=== PATIENT | female | born 1970 | race Caucasian/White ===

== ENCOUNTER 2018-03-17 08:35 | Outpatient (CLI) | payer OTHER | END 2018-03-17 08:36 | disposition home or self-care (01) | LOC: BICMAMMO 08:35 | PROVIDERS: ATTEND Family Medicine | DX: Z12.31 Encounter for screening mammogram for malignant neoplasm of breast (principal); N64.89 Other specified disorders of breast | CPT/HCPCS: 77067 ==

== ENCOUNTER 2018-03-24 08:18 | Outpatient (CLI) | payer OTHER | END 2018-03-24 08:19 | disposition home or self-care (01) | LOC: BICMAMMO 08:18 | PROVIDERS: ATTEND Family Medicine | DX: R92.2 Inconclusive mammogram (principal); N63.10 Unspecified lump in the right breast, unspecified quadrant | CPT/HCPCS: G0279 ==

== ENCOUNTER 2018-04-01 08:09 | Outpatient (CLI) | payer OTHER ==
--- NOTE | 2018-04-01 12:02 | MRI ---
PRE AND POST CONTRAST ENHANCED MRI CERVICAL SPINE: 04/01/2018 COMPARISON: 01/31/2017 TECHNIQUE: Multiplanar, multisequence pre and post contrast enhanced MR images of the cervical spine are obtaine d. FINDINGS: The spinal cord is unremarkable. No evidence of demyelinating lesions seen. Disk desiccation and broad-based disk bulge is seen at C4-C5, C5-C6, and C6-C7. This is compatible w ith mild disk desiccation and broad-based central disk bulges. No significant evidence of central or neural foraminal narrowing is seen. Some disk desiccation is also seen at the T1-T2 level with broa d-based T1-T2 left lateral recess and paracentral disk protrusion. This is unchanged since the previ ous exam. IMPRESSION: 1. Multiple mid level cervical disk desiccation. 2. Left T1-T2 paracentral disk protrusion extending to the lateral recess. POS: [facility]
--- NOTE | 2018-04-01 12:02 | MRI ---
PRE AND POST CONTRAST ENHANCED MR IMAGES OF THE BRAIN: History: Multiple sclerosis. Technique: Multiplanar, multisequence pre and post contrast enhanced MRI images were obtained of the brain. Comparison: 04-04-17 FINDINGS: Pre and post contrast enhanced MRI images of the brain demonstrate numerous paraventricular white mat ter lesions compatible with deep white matter ischemic changes seen. No evidence of masses or lesions seen involving the corpus callosum. No newly developed masses seen. MRI appearance of the brain is s table. No evidence of enhancing intracranial lesions seen. Bilateral maxillary sinus mucous retention cysts seen. IMPRESSION: Stable MRI appearance of the brain. No evidence of acute intracranial masses or lesions seen. Deep wh ite matter ischemic changes seen. POS: [facility]
== END 2018-04-01 08:10 | disposition home or self-care (01) ==
LOC: TBSIIMAG 08:09
PROVIDERS: ATTEND Psychiatry & Neurology Neurology
DX: G35 Multiple sclerosis (principal); M50.220 Other cervical disc displacement, mid-cervical region, unspecified level; M51.24 Other intervertebral disc displacement, thoracic region
CPT/HCPCS: 70553; 72156

== ENCOUNTER 2018-07-18 10:02 | Inpatient (IN) | payer OTHER ==
[2018-07-18 11:20] LABS: #Basophils 0.1 thou/uL (0.0-0.2); #Eosinphils 0.3 thou/uL (0.0-0.7); #Lymphocytes 2.6 thou/uL (1.20-3.40); #Monocytes 0.5 thou/uL (0.11-0.59); #Neutrophils 3.6 thou/uL (1.40-6.50); %Basophils 0.7 % (0.0-1.0); %Lymphocytes 37.5 % (21.0-51.0); %Monocytes 7.4 % (0.0-10.0); %Neutrophils 50.4 % (42.0-75.0); Hemoglobin 15.2 g/dL (12.0-16.0); Mean Corpuscular HGB CONC 34.7 g/dL (32.0-36.0); Mean Corpuscular Hemoglobin 31.9 pg (27.0-31.0); Mean Corpuscular Volume 91.8 fL (78.0-98.0); Mean Platelet Volume 7.1 fL (7.4-10.4); Platelet Count 188 thou/uL (130-400); RBC Distribution Width 13.5 % (11.5-14.5); Red Blood Cell (RBC) Count 4.77 mill/uL (4.20-5.40)
[2018-07-18 11:42] LABS: ALT (SGPT) 54 U/L (8-55); AST (SGOT) 44 U/L (5-34); Albumin 4.3 g/dL (3.5-5.0); Alkaline Phosphatase 107 U/L (40-150); Anion Gap 11 mmol/L (10-20); BUN (Urea Nitrogen) 18 mg/dL (7.0-18.7); Bilirubin, Total 0.7 mg/dL (0.2-1.2); Calc. Creatinine Clearance 0 mL/min (70-130); Calcium 9.7 mg/dL (7.8-10.44); Carbon Dioxide 21 mmol/L (22-29); Chloride 108 mmol/L (98-107); Estimated GFR-MDRD 61; Glucose 108 mg/dL (70-105); Protein, Total 7.3 g/dL (6.0-8.3); Sodium 136 mmol/L (136-145)
[2018-07-18 11:43] LABS: CKMB 0.5 ng/mL (0-6.6)
--- NOTE | 2018-07-18 11:43 | RAD ---
PORTABLE AP CHEST: Date: 07/08/18 HISTORY: Chest pain. Left facial pain and headache. COMPARISON: None available. FINDINGS: Cardiac silhouette and pulmonary vasculature are within normal limits. Lungs are clear. Osseous struc tures are intact. IMPRESSION: No acute cardiopulmonary process. POS: [facility]
[2018-07-18 11:57] LABS: Troponin I Less than 0.010 ng/mL (< 0.028)
[2018-07-18] MEDS ORDERED: METHYLPREDNISOLONE SOD SUCC IVP SCH (12:15)
[2018-07-18] MEDS ORDERED: SODIUM CHLORIDE 0.9% IVP SCH (12:15)
[2018-07-18] MEDS ORDERED: Gabapentin 300 MG CAP PO SCH ×2 (12:45→15:45)
--- NOTE | 2018-07-18 13:31 | HP ---
PRIMARY CARE PHYSICIAN: Dr. Carmela Mueller. REASON FOR ADMISSION: Multiple sclerosis exacerbation. HISTORY OF PRESENT ILLNESS: A 47-year-old female who has a diagnosis of multiple sclerosis who takes monthly injection therapy, who presented to emergency room with a complaint of neurological symptoms for last 3-4 days. She reports that she cannot open left eye with the right eye and she feels twitching sensation in her eye. She also has twitching sensation all over her body and she feels diffuse different location migrating bone pain. She also describes tingling and numbness sensation in both hands and feet. She denies any motor weakness. She denies any fever. She does feel a little bit difficulty swallowing. She denies any UTI symptoms. She denies any constipation or diarrhea. She denies any abdominal pain. The patient reports that whenever she has multiple sclerosis flare up, she feels this type of symptoms. Yesterday, she remained at home without doing anything, but her symptoms were keep progressing. Today, she made appointment with Dr. Ortiz who advised her to go to emergency room for evaluation. In the emergency room, the patient was given Solu-Medrol 250 mg and subsequently , we decided to keep this patient in the hospital for further treatment. The patient's last flareup was in 03/2017. The patient reports that she is diagnosed with multiple sclerosis in 2014 and she feels that with a monthly injection therapy, her multiple sclerosis remains well controlled. ALLERGIES: No known drug allergy. CURRENT HOME MEDICATIONS: Gabapentin 600 mg p.o. t.i.d., vitamin D3 2000 unit p.o. daily, mirabegron 50 mg p.o. at bedtime. The patient is taking monthly injection of Tresiba for her multiple sclerosis. REVIEW OF SYSTEMS: Please see my HPI for pertinent positive and negative. All other review of systems reviewed and negative except as mentioned in the HPI. Constitutional: Weight loss or gain, ability to conduct usual activities. Skin: Rash, itching. Eyes: Double vision, pain. ENT/Mouth: Nose bleeding, neck stiffness, pain, tenderness. Cardiovascular: Palpitations, dyspnea on exertion, orthopnea. Respiratory: Shortness of breath, wheezing, cough, hemoptysis, fever or night sweats. Gastrointestinal: Poor appetite, abdominal pain, heartburn, nausea, vomiting, constipation, or diarrhea. Genitourinary: Urgency, frequency, dysuria, nocturia. Musculoskeletal: Pain, swelling. Neurologic/Psychiatric: Anxiety, depression. Allergy/Immunologic: Skin rash, bleeding tendency. PAST MEDICAL HISTORY: Morbid obesity, multiple sclerosis, neurogenic bowel and bladder, history of frequent urinary tract infection. PAST SURGICAL HISTORY: . SOCIAL HISTORY: The patient lives with her parents. She has 3 children. She denies any alcohol or other illicit drug abuse. Her surrogate decision maker is her mom and her sister. FAMILY HISTORY: Negative for multiple sclerosis. No family history of coronary artery disease, stroke or cancer. EMERGENCY ROOM COURSE: The patient is given Solu-Medrol 250 mg. PAST PSYCHIATRIC HISTORY: Posttraumatic stress disorder, anxiety and depression. PHYSICAL EXAMINATION: VITAL SIGNS: On arrival, blood pressure 169/90, pulse 78, respiratory rate 18, saturation 97% on room air, temperature 97.8, weight 148 kilograms. GENERAL: The patient is currently alert, awake, no obvious acute distress. HEAD: Normocephalic, atraumatic. EYES: Pupils round, reactive to light. Extraocular muscle intact. ENT: Oropharynx within normal limits. Moist mucous membranes. No pharyngeal erythema, no exudate, no Erika infection. NECK: Supple, no JVD, no thyromegaly, no carotid bruit, no meningeal signs of irritation. LUNGS: Clear to auscultation without any rhonchi or rales. CARDIAC: S1, S2 regular. No murmur, no gallop, no rub. ABDOMEN: Soft. Morbid obesity, limiting examination. No organomegaly, no mass , no suprapubic tenderness. No peritoneal sign. BACK: Unremarkable, no CVA tenderness. EXTREMITIES: Upper extremity: Passive movement of all joints are normal. The patient does have subjective impairment of sensation in both palms and feet. NEUROLOGIC: The patient does have decreased sensation on the left side of the face. She feels as if somebody snapped her face. She also has subjective paresthesia in both hands and feet. She has spontaneous jerking movement of right lower extremity. Motor examination is normal. Reflexes symmetrical. SKIN: No skin rash. HEMATOLOGIC: No lymphadenopathy. PSYCHIATRIC: Normal affect. SIGNIFICANT LABORATORY DATA: Currently, CBC: WBC 7.0, hemoglobin 15.2, platelet 188. BMP: Sodium 136, potassium 4.0, chloride 108, carbon dioxide 21 , anion gap 11, BUN 18, creatinine 0.98, glucose 108, calcium 9.7. LFT: AST 44 , ALT 54, alkaline phosphatase 107, albumin 4.3, CK-MB 0.5, troponin I less than 0.010. Chest x-ray based on my review, no acute cardiopulmonary process. ASSESSMENT AND PLAN: 1. Multiple sclerosis exacerbation. The patient's symptomatology is consistent with multiple sclerosis flareup. Neurology will be consulted. We will continue Solu-Medrol 250 mg q.6 hourly as per neurology recommendation. To prevent steroid side effect, we will continue Protonix 40 mg p.o. daily, vitamin D3 2000 unit p.o. daily. We will use p.r.n. basis blood pressure medication. 2. Multiple sclerosis. We will continue gabapentin, mirabegron, vitamin D3 as per home dosage. 3. Morbid obesity. Dietary education given, weight loss education given. Healthy lifestyle measures discussed with the patient. 4. Anxiety, depression, posttraumatic stress disorder. The patient is not on any specific medication. 5. Deep venous thrombosis prophylaxis. Lovenox 40 mg subcu daily. 6. Gastrointestinal prophylaxis, Protonix 40 mg p.o. daily. CODE STATUS: The patient is FULL CODE. The patient's mother and sister is surrogate decision maker. Disposition plan based on clinical course. We are expecting patient's stay in hospital more than 2 midnights. Plan of care discussed with the patient and her father at bedside in the emergency room in detail. AJAY
[2018-07-18] MEDS ORDERED: Eucerin (Mineral Oil/Petrolatum,White) 30 gm Jar TOP PRN (15:32)
[2018-07-18] MEDS ORDERED: Mag-Al 1200 mg/1200 mg/30 ML UDCUP PO PRN (15:32)
[2018-07-18] MEDS ORDERED: Sodium Chloride 0.65% Nasal 44 ML BOT EA NARE PRN (15:32)
[2018-07-18] MEDS ORDERED: Diabetic Tussin 200 MG/10 ML UDCUP PO PRN (15:32)
[2018-07-18] MEDS ORDERED: Loratadine 10 MG TAB PO PRN (15:32)
[2018-07-18] MEDS ORDERED: hydrALAZINE 20 MG/ML VIAL SLOW IVP PRN (15:32)
[2018-07-18] MEDS ORDERED: Chloraseptic Spray 180 ml Bottle PO PRN (15:32)
[2018-07-18] MEDS ORDERED: Zolpidem Tartrate 5 MG TAB PO PRN (15:32)
[2018-07-18] MEDS ORDERED: Ondansetron HCl/PF 4 MG/2 ML Vial IVP PRN (15:32)
[2018-07-18] MEDS ORDERED: Ondansetron ODT 4 MG TAB PO PRN (15:32)
[2018-07-18] MEDS ORDERED: Acetaminophen 325 MG TAB PO PRN (15:32)
[2018-07-18] MEDS ORDERED: Loperamide HCl 2 MG CAP PO PRN (15:32)
[2018-07-18] MEDS ORDERED: Milk Of Magnesia 30 ML UDCUP PO PRN (15:32)
[2018-07-18] MEDS ORDERED: Artificial Tears 18 DROP/0.9 ML EA EYE PRN (15:32)
[2018-07-18 15:44] VITALS: BMI 50.8
[2018-07-18 16:40] LABS: Bilirubin Negative (Negative); Blood, Urine Negative (Negative); Clarity CLEAR (Clear); Glucose, Urine (Dipstick) Negative (Negative); Leukocyte Negative (Negative); Nitrite Negative (Negative); Protein, Urine (Dipstick) Negative (Neg-Trace); Specific Gravity, Urine 1.024 (1.002-1.036); pH, Urine 5.5 (5.0-9.0)
[2018-07-18 16:45] LABS: Bacteria/HPF None Seen HPF (None Seen); Hyaline Casts/LPF 0-3 HYALINE CAST LPF (0-3 Hyaline); Pathc Cast-AUWi Flag 0.43 (0-2.49); RBC/HPF 0-3 HPF (0-3); Squamous Epithelial 0-3 HPF (0-3); WBC/HPF 0-3 HPF (0-3)
[2018-07-18] MEDS: SODIUM CHLORIDE 0.9% IVPB SCH (17:23)
[2018-07-18] MEDS: METHYLPREDNISOLONE SOD SUCC IVPB SCH (17:23)
[2018-07-18] MEDS ORDERED: methylPREDNISolone Sod Succ/PF 125 MG/2 ML VIAL IVP SCH (18:00)
[2018-07-18] MEDS: Gabapentin 300 MG CAP PO SCH (20:06)
[2018-07-18] MEDS: Senokot 8.6 MG TAB PO PRN (21:24)
[2018-07-19] MEDS: SODIUM CHLORIDE 0.9% IVPB SCH ×2 (00:12→05:13)
[2018-07-19] MEDS: METHYLPREDNISOLONE SOD SUCC IVPB SCH ×2 (00:12→05:13)
[2018-07-19 04:22] LABS: #Eosinphils 0.1 thou/uL (0.0-0.7); #Lymphocytes 2.1 thou/uL (1.20-3.40); #Monocytes 0.1 thou/uL (0.11-0.59); #Neutrophils 6.4 thou/uL (1.40-6.50); %Basophils 0.3 % (0.0-1.0); %Eosinophils 0.7 % (0.0-10.0); %Lymphocytes 23.8 % (21.0-51.0); %Monocytes 1.6 % (0.0-10.0); %Neutrophils 73.6 % (42.0-75.0); Hemoglobin 14.8 g/dL (12.0-16.0); Mean Corpuscular HGB CONC 36.1 g/dL (32.0-36.0); Mean Corpuscular Hemoglobin 32.7 pg (27.0-31.0); Mean Corpuscular Volume 90.5 fL (78.0-98.0); Mean Platelet Volume 7.5 fL (7.4-10.4); Platelet Count 175 thou/uL (130-400); RBC Distribution Width 13.2 % (11.5-14.5); Red Blood Cell (RBC) Count 4.54 mill/uL (4.20-5.40); White Blood Cell (WBC) Count 8.7 thou/uL (4.8-10.8)
[2018-07-19 04:39] LABS: Anion Gap 15 mmol/L (10-20); BUN (Urea Nitrogen) 11 mg/dL (7.0-18.7); Calc. Creatinine Clearance 187 mL/min (70-130); Calcium 9.4 mg/dL (7.8-10.44); Carbon Dioxide 18 mmol/L (22-29); Chloride 108 mmol/L (98-107); Estimated GFR-MDRD 73; Glucose 182 mg/dL (70-105); Potassium 3.8 mmol/L (3.5-5.1); Sodium 137 mmol/L (136-145)
[2018-07-19] MEDS ORDERED: HumaLOG 300 UNITS/3 ML VIAL SC PRN ×2 (06:40)
[2018-07-19] MEDS ORDERED: Dextrose 50% Abboject 50 ML SYRINGE SLOW IVP PRN (06:40)
[2018-07-19] MEDS ORDERED: Dextrose 5% in Water 1,000 ML IV PRN (06:40)
[2018-07-19 07:54] LABS: Hemoglobin A1c 5.3 % (4.0-6.0)
[2018-07-19] MEDS: Enoxaparin Sodium 40 MG/0.4 ML SYRINGE SC SCH (08:27)
[2018-07-19] MEDS: Gabapentin 300 MG CAP PO SCH ×3 (08:27→20:52)
[2018-07-19] MEDS ORDERED: Bisacodyl 10 MG SUPP PR PRN (11:01)
--- NOTE | 2018-07-19 11:02 | PDOC.PN ---
- Subjective Encounter Start Date: 07/19/18 Encounter Start Time: 09:40 -: old records requested/rev Patient seen and examined. No new complaints. No overnight events feels overall better, less twitching, less parasthesia has constipation - Objective Resuscitation Status: Resuscitation Status FULL:Full Resuscitation MAR Reviewed: Yes Vital Signs & Weight: Vital Signs (12 hours) Temp Pulse Resp BP Pulse Ox 07/19/18 07:36 97.6 F 80 16 134/72 94 L 07/19/18 04:37 98.6 F 77 18 128/69 95 Weight Weight 315 lb I&O: 07/18/18 07/19/18 07/20/18 06:59 06:59 06:59 Intake Total 870 Balance 870 Result Diagrams: 07/19/18 03:25 07/19/18 03:25 Phys Exam - Physical Examination Constitutional: NAD HEENT: PERRLA, moist MMs, sclera anicteric Neck: no JVD, supple Respiratory: no wheezing, no rales, no rhonchi Cardiovascular: RRR, no significant murmur, no rub Gastrointestinal: soft, non-tender, no distention, positive bowel sounds morbid obesity Musculoskeletal: no edema, pulses present Neurological: non-focal, normal sensation, moves all 4 limbs Lymphatic: no nodes Psychiatric: normal affect, A&O x 3 Skin: no rash, normal turgor Dx/Plan (1) Multiple sclerosis exacerbation Code(s): G35 - MULTIPLE SCLEROSIS Status: Acute (2) Hyperglycemia, drug-induced Code(s): R73.9 - HYPERGLYCEMIA, UNSPECIFIED; T50.905A - ADVERSE EFFECT OF UNSP DRUG/MEDS/BIOL SUBST, INIT Status: Acute Comment: due to steroid (3) Chronic constipation Code(s): K59.09 - OTHER CONSTIPATION Status: Chronic (4) Morbid obesity with BMI of 50.0-59.9, adult Code(s): E66.01 - MORBID (SEVERE) OBESITY DUE TO EXCESS CALORIES; Z68.43 - BODY MASS INDEX (BMI) 50-59.9 , ADULT Status: Chronic (5) Neurogenic bladder Code(s): N31.9 - NEUROMUSCULAR DYSFUNCTION OF BLADDER, UNSPECIFIED Status: Chronic (6) NIMESH (obstructive sleep apnea) Code(s): G47.33 - OBSTRUCTIVE SLEEP APNEA (ADULT) (PEDIATRIC) Status: Chronic Comment: on cpap (7) Anxiety and depression Code(s): F41.9 - ANXIETY DISORDER, UNSPECIFIED; F32.9 - MAJOR DEPRESSIVE DISORDER, SINGLE EPISODE, UNSPECIFIED Status: Chronic - Plan cont current plan of care * continue her home medication * continue high dose steroid as per neurology recommendation * start hyperglycemia protocol treatment * medication reviewed as below * symptomatic treatment. Review of Systems - Review of Systems Constitutional: negative: fever, chills, sweats, weakness, malaise, other ENT: negative: Ear Pain, Ear Discharge, Nose Pain, Nose Discharge, Nose Congestion, Mouth Pain, Mouth Swelling, Throat Pain, Throat Swelling, Other Respiratory: negative: Cough, Dry, Shortness of Breath, Hemoptysis, SOB with Excertion, Pleuritic Pain, Sputum, Wheezing Cardiovascular: negative: chest pain, palpitations, orthopnea, paroxysmal nocturnal dyspnea, edema, light headedness, other Gastrointestinal: Constipation. negative: Nausea, Vomiting, Abdominal Pain, Diarrhea, Melena, Hematochezia, Other Genitourinary: negative: Dysuria, Frequency, Incontinence, Hematuria, Retention , Other Musculoskeletal: negative: Neck Pain, Shoulder Pain, Arm Pain, Back Pain, Hand Pain, Leg Pain, Foot Pain, Other Skin: negative: Rash, Lesions, José Miguel, Bruising, Other - Medications/Allergies Allergies/Adverse Reactions: Allergies Allergy/AdvReac Type Severity Reaction Status Date / Time No Known Allergies Allergy Verified 07/18/18 17:53 Medications: Current Medications Acetaminophen (Tylenol) 650 mg PO Q4H PRN PRN Reason: Headache/Fever or Pain Hydrocodone Bitart/Acetaminophen ([place] 5/325) 1 tab PO Q4H PRN PRN Reason: Moderate Pain (4-6) Al Hydroxide/Mg Hydroxide (Maalox) 30 ml PO Q6H PRN PRN Reason: Heartburn or Indigestion Artificial Tears (Tears Naturale) 0 drop EA EYE PRN PRN PRN Reason: Dry Eyes Cholecalciferol (Vitamin D3) 2,000 units PO DAILY [facility] Last Admin: 07/19/18 08:27 Dose: 2,000 units Dextrose/Water (Dextrose 50%) 25 gm SLOW IVP PRN PRN PRN Reason: Hypoglycemia Enoxaparin Sodium (Lovenox) 40 mg SC 0900 [facility] Last Admin: 07/19/18 08:27 Dose: 40 mg Gabapentin (Neurontin) 600 mg PO TID [facility] Last Admin: 07/19/18 08:27 Dose: 600 mg Glucagon (Glucagon) 1 mg IM PRN PRN PRN Reason: Hypoglycemia Guaifenesin (Robitussin Sf) 200 mg PO Q4H PRN PRN Reason: Cough Hydralazine HCl (Apresoline) 10 mg SLOW IVP Q4H PRN PRN Reason: Systolic BP > 180 Methylprednisolone Sodium Succinate 250 mg/ Sodium Chloride 104 mls @ 208 mls/ hr IVPB Q6HR [facility] Last Admin: 07/19/18 05:13 Dose: 104 mls Dextrose/Water (D5w) 1,000 mls @ 0 mls/hr IV .Q0M PRN PRN Reason: Hypoglycemia Insulin Human Lispro (Humalog) 0 units SC .MODERATE SLIDING SC PRN PRN Reason: Moderate Correctional Scale Insulin Human Lispro (Humalog) 0 units SC .BEDTIME SLIDING SC PRN PRN Reason: Bedtime Correctional Scale Loperamide HCl (Imodium) 2 mg PO PRN PRN PRN Reason: Diarrhea/Loose Stools Loratadine (Claritin) 10 mg PO DAILYPRN PRN PRN Reason: Sinus Symptoms Magnesium Hydroxide (Milk Of Magnesium) 30 ml PO DAILYPRN PRN PRN Reason: Constipation Mineral Oil/White Petrolatum (Eucerin Cream) 0 gm TOP BIDPRN PRN PRN Reason: Dry Skin Mirabegron (Myrbetriq Er) 50 mg PO DAILY [facility] Last Admin: 07/19/18 08:26 Dose: 50 mg Ondansetron HCl (Zofran Odt) 4 mg PO Q6H PRN PRN Reason: Nausea/Vomiting Ondansetron HCl (Zofran) 4 mg IVP Q6H PRN PRN Reason: Nausea/Vomiting Pantoprazole Sodium (Protonix) 40 mg PO DAILY [facility] Last Admin: 07/19/18 08:27 Dose: 40 mg Phenol (Chloraseptic [place] 180 Ml Bot) 0 ml PO PRN PRN PRN Reason: Sore Throat Senna (Senokot) 2 tab PO HSPRN PRN PRN Reason: Constipation Last Admin: 07/18/18 21:24 Dose: 2 tab Sodium Chloride ([place] Nasal [place] 0.65%) 0 ml EA NARE QIDPRN PRN PRN Reason: Nasal Congestion Zolpidem Tartrate (Ambien) 5 mg PO HSPRN PRN PRN Reason: Insomnia
[2018-07-19] MEDS: HYDROcodone/Acetaminophen 5/325 mg Tablet PO PRN ×2 (18:35→23:51)
[2018-07-19] MEDS: Escitalopram Oxalate 10 mg Tablet PO SCH (20:52)
[2018-07-19] MEDS: Venlafaxine XR 37.5 MG CAP PO SCH (20:52)
[2018-07-19] MEDS: Senokot 8.6 MG TAB PO PRN (20:53)
[2018-07-20] MEDS: HYDROcodone/Acetaminophen 5/325 mg Tablet PO PRN ×3 (05:58→18:13)
[2018-07-20] MEDS: Gabapentin 300 MG CAP PO SCH ×3 (08:40→21:19)
[2018-07-20] MEDS: Enoxaparin Sodium 40 MG/0.4 ML SYRINGE SC SCH (08:40)
[2018-07-20] MEDS: Polyethylene Glycol 3350 17 GM Packet PO SCH (08:40)
[2018-07-20] MEDS ORDERED: Cyclobenzaprine 10 MG TAB PO PRN (09:53)
--- NOTE | 2018-07-20 09:53 | PDOC.PN ---
- Subjective Encounter Start Date: 07/20/18 Encounter Start Time: 09:00 pt was anxious as she still gets spasm in leg, feels twitching around eye and has migrating deep bone pain - Objective Resuscitation Status: Resuscitation Status FULL:Full Resuscitation MAR Reviewed: Yes Vital Signs & Weight: Vital Signs (12 hours) Temp Pulse Resp BP Pulse Ox 07/20/18 08:00 97.7 F 63 16 07/20/18 07:57 97.7 F 63 16 122/70 97 Weight Weight 315 lb I&O: 07/19/18 07/20/18 07/21/18 06:59 06:59 06:59 Intake Total 870 1680 240 Balance 870 1680 240 Result Diagrams: 07/19/18 03:25 07/19/18 03:25 Additional Labs: Accuchecks 07/20/18 07/19/18 07/19/18 04:34 20:22 17:11 POC Glucose 184 H 210 H 224 H 07/19/18 11:54 POC Glucose 231 H Phys Exam - Physical Examination Constitutional: NAD HEENT: PERRLA, moist MMs, sclera anicteric Neck: no JVD, supple Respiratory: no wheezing, no rales, no rhonchi Cardiovascular: RRR, no significant murmur, no rub Gastrointestinal: soft, non-tender, no distention, positive bowel sounds Musculoskeletal: no edema, pulses present Neurological: non-focal, normal sensation, moves all 4 limbs Psychiatric: normal affect, A&O x 3 Skin: no rash, normal turgor Dx/Plan (1) Anxiety and depression Code(s): F41.9 - ANXIETY DISORDER, UNSPECIFIED; F32.9 - MAJOR DEPRESSIVE DISORDER, SINGLE EPISODE, UNSPECIFIED Status: Chronic (2) Hyperglycemia, drug-induced Code(s): R73.9 - HYPERGLYCEMIA, UNSPECIFIED; T50.905A - ADVERSE EFFECT OF UNSP DRUG/MEDS/BIOL SUBST, INIT Status: Acute Comment: due to steroid (3) Multiple sclerosis exacerbation Code(s): G35 - MULTIPLE SCLEROSIS Status: Acute (4) Chronic constipation Code(s): K59.09 - OTHER CONSTIPATION Status: Chronic (5) Morbid obesity with BMI of 50.0-59.9, adult Code(s): E66.01 - MORBID (SEVERE) OBESITY DUE TO EXCESS CALORIES; Z68.43 - BODY MASS INDEX (BMI) 50-59.9 , ADULT Status: Chronic (6) Neurogenic bladder Code(s): N31.9 - NEUROMUSCULAR DYSFUNCTION OF BLADDER, UNSPECIFIED Status: Chronic (7) NIMESH (obstructive sleep apnea) Code(s): G47.33 - OBSTRUCTIVE SLEEP APNEA (ADULT) (PEDIATRIC) Status: Chronic Comment: on cpap - Plan cont current plan of care * continue high dose solumedrol today day 3 * will add valium and flexeril as needed basis for muscle spasm * medication reviewed as below * symptomatic treatment * supportive care. Review of Systems - Review of Systems Constitutional: negative: fever, chills, sweats, weakness, malaise, other Eyes: negative: Pain, Vision Change, Conjunctivae Inflammation, Eyelid Inflammation, Redness, Other ENT: negative: Ear Pain, Ear Discharge, Nose Pain, Nose Discharge, Nose Congestion, Mouth Pain, Mouth Swelling, Throat Pain, Throat Swelling, Other Respiratory: negative: Cough, Dry, Shortness of Breath, Hemoptysis, SOB with Excertion, Pleuritic Pain, Sputum, Wheezing Cardiovascular: negative: chest pain, palpitations, orthopnea, paroxysmal nocturnal dyspnea, edema, light headedness, other Gastrointestinal: negative: Nausea, Vomiting, Abdominal Pain, Diarrhea, Constipation, Melena, Hematochezia, Other Genitourinary: negative: Dysuria, Frequency, Incontinence, Hematuria, Retention , Other Musculoskeletal: negative: Neck Pain, Shoulder Pain, Arm Pain, Back Pain, Hand Pain, Leg Pain, Foot Pain, Other Skin: negative: Rash, Lesions, José Miguel, Bruising, Other Neurological: Other (muscle spasm, twitching). negative: Weakness, Numbness, Incoordination, Change in Speech, Confusion, Seizures - Medications/Allergies Allergies/Adverse Reactions: Allergies Allergy/AdvReac Type Severity Reaction Status Date / Time No Known Allergies Allergy Verified 07/18/18 17:53 Medications: Current Medications Acetaminophen (Tylenol) 650 mg PO Q4H PRN PRN Reason: Headache/Fever or Pain Hydrocodone Bitart/Acetaminophen ([place] 5/325) 1 tab PO Q4H PRN PRN Reason: Moderate Pain (4-6) Last Admin: 07/20/18 05:58 Dose: 1 tab Al Hydroxide/Mg Hydroxide (Maalox) 30 ml PO Q6H PRN PRN Reason: Heartburn or Indigestion Artificial Tears (Tears Naturale) 0 drop EA EYE PRN PRN PRN Reason: Dry Eyes Bisacodyl (Dulcolax) 10 mg SD Q8H PRN PRN Reason: Constipation Cholecalciferol (Vitamin D3) 2,000 units PO DAILY [facility] Last Admin: 07/20/18 08:40 Dose: 2,000 units Dextrose/Water (Dextrose 50%) 25 gm SLOW IVP PRN PRN PRN Reason: Hypoglycemia Enoxaparin Sodium (Lovenox) 40 mg SC 09 [facility] Last Admin: 07/20/18 08:40 Dose: 40 mg Escitalopram Oxalate (Lexapro) 10 mg PO HS [facility] Last Admin: 07/19/18 20:52 Dose: 10 mg Gabapentin (Neurontin) 600 mg PO TID [facility] Last Admin: 07/20/18 08:40 Dose: 600 mg Glucagon (Glucagon) 1 mg IM PRN PRN PRN Reason: Hypoglycemia Guaifenesin (Robitussin Sf) 200 mg PO Q4H PRN PRN Reason: Cough Hydralazine HCl (Apresoline) 10 mg SLOW IVP Q4H PRN PRN Reason: Systolic BP > 180 Dextrose/Water (D5w) 1,000 mls @ 0 mls/hr IV .Q0M PRN PRN Reason: Hypoglycemia Methylprednisolone Sodium Succinate 250 mg/Miscellaneous Medication 1 each/ Sodium Chloride 104 mls @ 208 mls/hr IVPB Q6HR [facility] Last Admin: 07/20/18 05:53 Dose: 104 mls Insulin Human Lispro (Humalog) 0 units SC .MODERATE SLIDING SC PRN PRN Reason: Moderate Correctional Scale Insulin Human Lispro (Humalog) 0 units SC .BEDTIME SLIDING SC PRN PRN Reason: Bedtime Correctional Scale Loperamide HCl (Imodium) 2 mg PO PRN PRN PRN Reason: Diarrhea/Loose Stools Loratadine (Claritin) 10 mg PO DAILYPRN PRN PRN Reason: Sinus Symptoms Magnesium Hydroxide (Milk Of Magnesium) 30 ml PO DAILYPRN PRN PRN Reason: Constipation Mineral Oil/White Petrolatum (Eucerin Cream) 0 gm TOP BIDPRN PRN PRN Reason: Dry Skin Mirabegron (Myrbetriq Er) 50 mg PO DAILY [facility] Last Admin: 07/20/18 08:39 Dose: 50 mg Ondansetron HCl (Zofran Odt) 4 mg PO Q6H PRN PRN Reason: Nausea/Vomiting Ondansetron HCl (Zofran) 4 mg IVP Q6H PRN PRN Reason: Nausea/Vomiting Pantoprazole Sodium (Protonix) 40 mg PO DAILY [facility] Last Admin: 07/20/18 08:40 Dose: 40 mg Phenol (Chloraseptic [place] 180 Ml Bot) 0 ml PO PRN PRN PRN Reason: Sore Throat Polyethylene Glycol (Miralax) 17 gm PO DAILY [facility] Last Admin: 07/20/18 08:40 Dose: 17 gm Senna (Senokot) 2 tab PO HSPRN PRN PRN Reason: Constipation Last Admin: 07/19/18 20:53 Dose: 2 tab Sodium Chloride ([place] Nasal [place] 0.65%) 0 ml EA NARE QIDPRN PRN PRN Reason: Nasal Congestion Venlafaxine HCl (Effexor Xr) 37.5 mg PO [facility] Last Admin: 07/19/18 20:52 Dose: 37.5 mg Zolpidem Tartrate (Ambien) 5 mg PO HSPRN PRN PRN Reason: Insomnia
[2018-07-20] MEDS: Escitalopram Oxalate 10 mg Tablet PO SCH (21:19)
[2018-07-20] MEDS: Venlafaxine XR 37.5 MG CAP PO SCH (21:19)
[2018-07-20] MEDS: Diazepam 5 MG TAB PO PRN (21:19)
[2018-07-21] MEDS: Gabapentin 300 MG CAP PO SCH ×3 (09:43→20:21)
[2018-07-21] MEDS: Enoxaparin Sodium 40 MG/0.4 ML SYRINGE SC SCH (09:44)
[2018-07-21] MEDS: Polyethylene Glycol 3350 17 GM Packet PO SCH (09:45)
[2018-07-21] MEDS: HYDROcodone/Acetaminophen 5/325 mg Tablet PO PRN ×2 (09:48→15:15)
--- NOTE | 2018-07-21 10:55 | PDOC.PN ---
- Subjective Encounter Start Date: 07/21/18 Encounter Start Time: 08:40 Patient seen and examined. No new complaints. No overnight events - Objective Resuscitation Status: Resuscitation Status FULL:Full Resuscitation MAR Reviewed: Yes Vital Signs & Weight: Vital Signs (12 hours) Temp Pulse Resp BP Pulse Ox 07/21/18 07:48 98.4 F 66 18 134/70 95 07/21/18 04:44 97.9 F 63 16 138/65 95 Weight Weight 315 lb I&O: 07/20/18 07/21/18 07/22/18 06:59 06:59 06:59 Intake Total 1680 1720 Balance 1680 1720 Result Diagrams: 07/19/18 03:25 07/19/18 03:25 Additional Labs: Accuchecks 07/21/18 07/20/18 07/20/18 04:43 19:40 16:49 POC Glucose 168 H 174 H 177 H 07/20/18 11:50 POC Glucose 242 H Phys Exam - Physical Examination Constitutional: NAD HEENT: PERRLA, moist MMs, sclera anicteric Neck: no JVD, supple Respiratory: no wheezing, no rales, no rhonchi Cardiovascular: RRR, no significant murmur, no rub Gastrointestinal: soft, non-tender, no distention, positive bowel sounds Musculoskeletal: no edema, pulses present Neurological: non-focal, normal sensation, moves all 4 limbs Lymphatic: no nodes Psychiatric: normal affect, A&O x 3 Skin: no rash, normal turgor Dx/Plan (1) Anxiety and depression Code(s): F41.9 - ANXIETY DISORDER, UNSPECIFIED; F32.9 - MAJOR DEPRESSIVE DISORDER, SINGLE EPISODE, UNSPECIFIED Status: Chronic (2) Hyperglycemia, drug-induced Code(s): R73.9 - HYPERGLYCEMIA, UNSPECIFIED; T50.905A - ADVERSE EFFECT OF UNSP DRUG/MEDS/BIOL SUBST, INIT Status: Acute Comment: due to steroid (3) Multiple sclerosis exacerbation Code(s): G35 - MULTIPLE SCLEROSIS Status: Acute (4) Chronic constipation Code(s): K59.09 - OTHER CONSTIPATION Status: Chronic (5) Morbid obesity with BMI of 50.0-59.9, adult Code(s): E66.01 - MORBID (SEVERE) OBESITY DUE TO EXCESS CALORIES; Z68.43 - BODY MASS INDEX (BMI) 50-59.9 , ADULT Status: Chronic (6) Neurogenic bladder Code(s): N31.9 - NEUROMUSCULAR DYSFUNCTION OF BLADDER, UNSPECIFIED Status: Chronic (7) NIMESH (obstructive sleep apnea) Code(s): G47.33 - OBSTRUCTIVE SLEEP APNEA (ADULT) (PEDIATRIC) Status: Chronic Comment: on cpap - Plan cont current plan of care * continue high dose of solumedrol today day 4 * medication reviewed as below * symptomatic treatment * possible discharge in 24-48 hours. Review of Systems - Review of Systems ENT: negative: Ear Pain, Ear Discharge, Nose Pain, Nose Discharge, Nose Congestion, Mouth Pain, Mouth Swelling, Throat Pain, Throat Swelling, Other Respiratory: negative: Cough, Dry, Shortness of Breath, Hemoptysis, SOB with Excertion, Pleuritic Pain, Sputum, Wheezing Cardiovascular: negative: chest pain, palpitations, orthopnea, paroxysmal nocturnal dyspnea, edema, light headedness, other Gastrointestinal: negative: Nausea, Vomiting, Abdominal Pain, Diarrhea, Constipation, Melena, Hematochezia, Other Genitourinary: negative: Dysuria, Frequency, Incontinence, Hematuria, Retention , Other Musculoskeletal: negative: Neck Pain, Shoulder Pain, Arm Pain, Back Pain, Hand Pain, Leg Pain, Foot Pain, Other Skin: negative: Rash, Lesions, José Miguel, Bruising, Other - Medications/Allergies Allergies/Adverse Reactions: Allergies Allergy/AdvReac Type Severity Reaction Status Date / Time No Known Allergies Allergy Verified 07/18/18 17:53 Medications: Current Medications Acetaminophen (Tylenol) 650 mg PO Q4H PRN PRN Reason: Headache/Fever or Pain Hydrocodone Bitart/Acetaminophen ([place] 5/325) 1 tab PO Q4H PRN PRN Reason: Moderate Pain (4-6) Last Admin: 07/21/18 09:48 Dose: 1 tab Al Hydroxide/Mg Hydroxide (Maalox) 30 ml PO Q6H PRN PRN Reason: Heartburn or Indigestion Artificial Tears (Tears Naturale) 0 drop EA EYE PRN PRN PRN Reason: Dry Eyes Bisacodyl (Dulcolax) 10 mg LA Q8H PRN PRN Reason: Constipation Cholecalciferol (Vitamin D3) 2,000 units PO DAILY [facility] Last Admin: 07/21/18 09:43 Dose: 2,000 units Cyclobenzaprine HCl (Flexeril) 10 mg PO TID PRN PRN Reason: Muscle Spasm Dextrose/Water (Dextrose 50%) 25 gm SLOW IVP PRN PRN PRN Reason: Hypoglycemia Diazepam (Valium) 5 mg PO BID PRN PRN Reason: Anxiety/Restlessness/Sleep Last Admin: 07/20/18 21:19 Dose: 5 mg Enoxaparin Sodium (Lovenox) 40 mg SC 0900 [facility] Last Admin: 07/21/18 09:44 Dose: 40 mg Escitalopram Oxalate (Lexapro) 10 mg PO HS [facility] Last Admin: 07/20/18 21:19 Dose: 10 mg Gabapentin (Neurontin) 600 mg PO TID [facility] Last Admin: 07/21/18 09:43 Dose: 600 mg Glucagon (Glucagon) 1 mg IM PRN PRN PRN Reason: Hypoglycemia Guaifenesin (Robitussin Sf) 200 mg PO Q4H PRN PRN Reason: Cough Hydralazine HCl (Apresoline) 10 mg SLOW IVP Q4H PRN PRN Reason: Systolic BP > 180 Dextrose/Water (D5w) 1,000 mls @ 0 mls/hr IV .Q0M PRN PRN Reason: Hypoglycemia Methylprednisolone Sodium Succinate 250 mg/Miscellaneous Medication 1 each/ Sodium Chloride 104 mls @ 208 mls/hr IVPB Q6HR [facility] Last Admin: 07/21/18 05:38 Dose: 104 mls Insulin Human Lispro (Humalog) 0 units SC .MODERATE SLIDING SC PRN PRN Reason: Moderate Correctional Scale Insulin Human Lispro (Humalog) 0 units SC .BEDTIME SLIDING SC PRN PRN Reason: Bedtime Correctional Scale Loperamide HCl (Imodium) 2 mg PO PRN PRN PRN Reason: Diarrhea/Loose Stools Loratadine (Claritin) 10 mg PO DAILYPRN PRN PRN Reason: Sinus Symptoms Magnesium Hydroxide (Milk Of Magnesium) 30 ml PO DAILYPRN PRN PRN Reason: Constipation Mineral Oil/White Petrolatum (Eucerin Cream) 0 gm TOP BIDPRN PRN PRN Reason: Dry Skin Mirabegron (Myrbetriq Er) 50 mg PO DAILY [facility] Last Admin: 07/21/18 09:44 Dose: 50 mg Ondansetron HCl (Zofran Odt) 4 mg PO Q6H PRN PRN Reason: Nausea/Vomiting Ondansetron HCl (Zofran) 4 mg IVP Q6H PRN PRN Reason: Nausea/Vomiting Pantoprazole Sodium (Protonix) 40 mg PO DAILY [facility] Last Admin: 07/21/18 09:43 Dose: 40 mg Phenol (Chloraseptic [place] 180 Ml Bot) 0 ml PO PRN PRN PRN Reason: Sore Throat Polyethylene Glycol (Miralax) 17 gm PO DAILY [facility] Last Admin: 07/21/18 09:45 Dose: Not Given Senna (Senokot) 2 tab PO HSPRN PRN PRN Reason: Constipation Last Admin: 07/19/18 20:53 Dose: 2 tab Sodium Chloride ([place] Nasal [place] 0.65%) 0 ml EA NARE QIDPRN PRN PRN Reason: Nasal Congestion Venlafaxine HCl (Effexor Xr) 37.5 mg PO [facility] Last Admin: 07/20/18 21:19 Dose: 37.5 mg Zolpidem Tartrate (Ambien) 5 mg PO HSPRN PRN PRN Reason: Insomnia
[2018-07-21] MEDS: Venlafaxine XR 37.5 MG CAP PO SCH (20:21)
[2018-07-21] MEDS: Escitalopram Oxalate 10 mg Tablet PO SCH (20:21)
[2018-07-21] MEDS: Senokot 8.6 MG TAB PO PRN (21:24)
[2018-07-21] MEDS: Diazepam 5 MG TAB PO PRN (23:38)
[2018-07-22] MEDS: Gabapentin 300 MG CAP PO SCH ×3 (08:49→20:52)
[2018-07-22] MEDS: Enoxaparin Sodium 40 MG/0.4 ML SYRINGE SC SCH (08:51)
[2018-07-22] MEDS: Polyethylene Glycol 3350 17 GM Packet PO SCH (08:52)
[2018-07-22] MEDS: HYDROcodone/Acetaminophen 5/325 mg Tablet PO PRN (09:00)
--- NOTE | 2018-07-22 09:36 | PDOC.PN ---
- Subjective Encounter Start Date: 07/22/18 Encounter Start Time: 07:50 Patient seen and examined. No new complaints. No overnight events pt reports that she gets spasm when effect iv steroid wears off - Objective Resuscitation Status: Resuscitation Status FULL:Full Resuscitation MAR Reviewed: Yes Vital Signs & Weight: Vital Signs (12 hours) Temp Pulse Resp BP Pulse Ox 07/22/18 07:46 97.9 F 65 20 118/53 L 96 07/22/18 04:00 98.0 F 59 L 18 133/54 L 94 L 07/22/18 00:00 98.0 F 63 18 135/63 94 L Weight Weight 315 lb I&O: 07/21/18 07/22/18 07/23/18 06:59 06:59 06:59 Intake Total 1720 2620 Balance 1720 2620 Result Diagrams: 07/19/18 03:25 07/19/18 03:25 Additional Labs: Accuchecks 07/22/18 07/21/18 07/21/18 05:26 19:36 16:56 POC Glucose 149 H 236 H 274 H 07/21/18 11:15 POC Glucose 203 H Phys Exam - Physical Examination Constitutional: NAD HEENT: PERRLA, moist MMs, sclera anicteric Neck: no JVD, supple Respiratory: no wheezing, no rales, no rhonchi Cardiovascular: RRR, no significant murmur, no rub Gastrointestinal: soft, non-tender, no distention, positive bowel sounds obesity+ Musculoskeletal: no edema, pulses present Neurological: non-focal, normal sensation, moves all 4 limbs Psychiatric: normal affect, A&O x 3 Skin: no rash, normal turgor Dx/Plan (1) Multiple sclerosis exacerbation Code(s): G35 - MULTIPLE SCLEROSIS Status: Acute (2) Hyperglycemia, drug-induced Code(s): R73.9 - HYPERGLYCEMIA, UNSPECIFIED; T50.905A - ADVERSE EFFECT OF UNSP DRUG/MEDS/BIOL SUBST, INIT Status: Acute Comment: due to steroid (3) Anxiety and depression Code(s): F41.9 - ANXIETY DISORDER, UNSPECIFIED; F32.9 - MAJOR DEPRESSIVE DISORDER, SINGLE EPISODE, UNSPECIFIED Status: Chronic (4) Chronic constipation Code(s): K59.09 - OTHER CONSTIPATION Status: Chronic (5) Morbid obesity with BMI of 50.0-59.9, adult Code(s): E66.01 - MORBID (SEVERE) OBESITY DUE TO EXCESS CALORIES; Z68.43 - BODY MASS INDEX (BMI) 50-59.9 , ADULT Status: Chronic (6) Neurogenic bladder Code(s): N31.9 - NEUROMUSCULAR DYSFUNCTION OF BLADDER, UNSPECIFIED Status: Chronic (7) NIMESH (obstructive sleep apnea) Code(s): G47.33 - OBSTRUCTIVE SLEEP APNEA (ADULT) (PEDIATRIC) Status: Chronic Comment: on cpap - Plan cont current plan of care * tomorrow afternoon would be 5th day for high dose of steroid * will ask neurology if any new recommendation on discharge * medication reviewed as below * symptomatic treatment * expecting discharge tomorrow afternoon. Review of Systems - Review of Systems Eyes: negative: Pain, Vision Change, Conjunctivae Inflammation, Eyelid Inflammation, Redness, Other ENT: negative: Ear Pain, Ear Discharge, Nose Pain, Nose Discharge, Nose Congestion, Mouth Pain, Mouth Swelling, Throat Pain, Throat Swelling, Other Respiratory: negative: Cough, Dry, Shortness of Breath, Hemoptysis, SOB with Excertion, Pleuritic Pain, Sputum, Wheezing Cardiovascular: negative: chest pain, palpitations, orthopnea, paroxysmal nocturnal dyspnea, edema, light headedness, other Gastrointestinal: negative: Nausea, Vomiting, Abdominal Pain, Diarrhea, Constipation, Melena, Hematochezia, Other Genitourinary: negative: Dysuria, Frequency, Incontinence, Hematuria, Retention , Other Musculoskeletal: negative: Neck Pain, Shoulder Pain, Arm Pain, Back Pain, Hand Pain, Leg Pain, Foot Pain, Other Skin: negative: Rash, Lesions, José Miguel, Bruising, Other - Medications/Allergies Allergies/Adverse Reactions: Allergies Allergy/AdvReac Type Severity Reaction Status Date / Time No Known Allergies Allergy Verified 07/18/18 17:53 Medications: Current Medications Acetaminophen (Tylenol) 650 mg PO Q4H PRN PRN Reason: Headache/Fever or Pain Hydrocodone Bitart/Acetaminophen ([place] 5/325) 1 tab PO Q4H PRN PRN Reason: Moderate Pain (4-6) Last Admin: 07/22/18 09:00 Dose: 1 tab Al Hydroxide/Mg Hydroxide (Maalox) 30 ml PO Q6H PRN PRN Reason: Heartburn or Indigestion Artificial Tears (Tears Naturale) 0 drop EA EYE PRN PRN PRN Reason: Dry Eyes Bisacodyl (Dulcolax) 10 mg SD Q8H PRN PRN Reason: Constipation Cholecalciferol (Vitamin D3) 2,000 units PO DAILY [facility] Last Admin: 07/22/18 08:47 Dose: 2,000 units Cyclobenzaprine HCl (Flexeril) 10 mg PO TID PRN PRN Reason: Muscle Spasm Dextrose/Water (Dextrose 50%) 25 gm SLOW IVP PRN PRN PRN Reason: Hypoglycemia Diazepam (Valium) 5 mg PO BID PRN PRN Reason: Anxiety/Restlessness/Sleep Last Admin: 07/21/18 23:38 Dose: 5 mg Enoxaparin Sodium (Lovenox) 40 mg SC 09 [facility] Last Admin: 07/22/18 08:51 Dose: 40 mg Escitalopram Oxalate (Lexapro) 10 mg PO HS [facility] Last Admin: 07/21/18 20:21 Dose: 10 mg Gabapentin (Neurontin) 600 mg PO TID [facility] Last Admin: 07/22/18 08:49 Dose: 600 mg Glucagon (Glucagon) 1 mg IM PRN PRN PRN Reason: Hypoglycemia Guaifenesin (Robitussin Sf) 200 mg PO Q4H PRN PRN Reason: Cough Hydralazine HCl (Apresoline) 10 mg SLOW IVP Q4H PRN PRN Reason: Systolic BP > 180 Dextrose/Water (D5w) 1,000 mls @ 0 mls/hr IV .Q0M PRN PRN Reason: Hypoglycemia Methylprednisolone Sodium Succinate 250 mg/Miscellaneous Medication 1 each/ Sodium Chloride 104 mls @ 208 mls/hr IVPB Q6HR [facility] Last Admin: 07/22/18 05:10 Dose: 104 mls Insulin Human Lispro (Humalog) 0 units SC .MODERATE SLIDING SC PRN PRN Reason: Moderate Correctional Scale Insulin Human Lispro (Humalog) 0 units SC .BEDTIME SLIDING SC PRN PRN Reason: Bedtime Correctional Scale Loperamide HCl (Imodium) 2 mg PO PRN PRN PRN Reason: Diarrhea/Loose Stools Loratadine (Claritin) 10 mg PO DAILYPRN PRN PRN Reason: Sinus Symptoms Magnesium Hydroxide (Milk Of Magnesium) 30 ml PO DAILYPRN PRN PRN Reason: Constipation Mineral Oil/White Petrolatum (Eucerin Cream) 0 gm TOP BIDPRN PRN PRN Reason: Dry Skin Mirabegron (Myrbetriq Er) 50 mg PO DAILY [facility] Last Admin: 07/22/18 09:00 Dose: 50 mg Ondansetron HCl (Zofran Odt) 4 mg PO Q6H PRN PRN Reason: Nausea/Vomiting Ondansetron HCl (Zofran) 4 mg IVP Q6H PRN PRN Reason: Nausea/Vomiting Pantoprazole Sodium (Protonix) 40 mg PO DAILY [facility] Last Admin: 07/22/18 08:51 Dose: 40 mg Phenol (Chloraseptic [place] 180 Ml Bot) 0 ml PO PRN PRN PRN Reason: Sore Throat Polyethylene Glycol (Miralax) 17 gm PO DAILY [facility] Last Admin: 07/22/18 08:52 Dose: Not Given Senna (Senokot) 2 tab PO HSPRN PRN PRN Reason: Constipation Last Admin: 07/21/18 21:24 Dose: 2 tab Sodium Chloride ([place] Nasal [place] 0.65%) 0 ml EA NARE QIDPRN PRN PRN Reason: Nasal Congestion Venlafaxine HCl (Effexor Xr) 37.5 mg PO HS [facility] Last Admin: 07/21/18 20:21 Dose: 37.5 mg Zolpidem Tartrate (Ambien) 5 mg PO HSPRN PRN PRN Reason: Insomnia
[2018-07-22] MEDS: Senokot 8.6 MG TAB PO PRN (12:37)
--- NOTE | 2018-07-22 18:35 | PRG ---
DATE OF SERVICE: 07/22/2018 SUBJECTIVE: Ms. Denis is a pleasant 47-year-old female who presented with the acute MS exacerbation type symptoms. She has been undergoing IV Solu-Medrol q.6 hours total of 4 days. She has noted some improvement in her strength; however, she continues to have muscle twitching and spasms in right lower extremity. She is also having some difficulty with her gait and balance. She denies headache, chest pain, palpitation, nausea, vomiting, abdominal pain. PHYSICAL EXAMINATION: VITAL SIGNS: Blood pressure of 136/64, pulse of 62, temperature of 97.9, respirations are 20, O2 sats of 93% on room air. GENERAL: Well-developed, well-nourished female in no apparent distress. RESPIRATORY: Clear to auscultation bilaterally. CARDIOVASCULAR: Regular rate and rhythm. NEUROLOGICAL: Essentially unchanged when compared to my previous visit. LABORATORY DATA: Labs are reviewed, which included CBC, BMP, hemoglobin A1c, urinalysis, which are essentially normal. IMPRESSION: 1. Acute multiple sclerosis exacerbation. 2. Right-sided weakness converted to #1. ASSESSMENT AND PLAN: Ms. Denis is a pleasant 47-year-old female who presented with the acute worsening of weakness on the right side as well as blurry vision and increasing difficulty with gait and balance. The symptoms are indicative of acute multiple sclerosis exacerbation. She has been completing the fourth day of IV steroids with Solu-Medrol today. When she completes 5 days of IV Solu-Medrol, she is okay to be discharged to home. If she continues to have the pain, then I may recommend sending her on muscle relaxers like baclofen or tizanidine to help with the spasms. She will need to be started on Medrol Dosepak before she goes home to transition her from IV Solu -Medrol to tapering steroid. She will continue with Tysabri infusion once every 4 weeks. She will follow up with Dr. Bruno Hawkins as an outpatient. Thank you for your consultation. AJAY
[2018-07-22] MEDS: Escitalopram Oxalate 10 mg Tablet PO SCH (20:53)
[2018-07-22] MEDS: Venlafaxine XR 37.5 MG CAP PO SCH (22:12)
[2018-07-23] MEDS: Diazepam 5 MG TAB PO PRN (00:39)
--- NOTE | 2018-07-23 01:25 | CON ---
DATE OF CONSULTATION: 07/18/2018 REFERRING PROVIDER: Dr. Silvino Clemens. REASON FOR CONSULTATION: Acute multiple sclerosis exacerbation. HISTORY OF PRESENT ILLNESS: Ms. Denis is a pleasant 47-year-old female who has been cons ulted for evaluation of acute MS exacerbation. History is obtained from the patient who is a very go od historian. The patient is known to me from my clinic. She has history of multiple sclerosis. Jose frye has been undergoing Tysabri infusion once every 4 weeks. She has been doing well on Tysabri withou t any recent flare ups. She reports that approximately 4 days ago she was exposed to her father and son who were both sick with flu like symptoms. She had developed fever and upset stomach a couple of days ago. Since then, she has noted increasing weakness in her right upper and right lower extremit y. She is also noticing increasing muscle spasms and cramps in the right lower extremity and to some extent in the left lower extremity. She also has noted increasing balance difficulty, increasing we akness in both upper and lower extremities. She also has noted some blurry vision and some difficult y with swallowing. As her symptoms were getting worse, she had called my office for further recommen dations at that point, I had recommended for her to present to the [facility] as her s ymptoms may have been MS exacerbation. She currently denies any headache, chest pain, or palpitation . PAST MEDICAL HISTORY: Reviewed that are as dictated in H and P note done by Dr. Silvino Clemens. PAST SURGICAL HISTORY: Reviewed that are as dictated in H and P note done by Dr. Silvino Clemens. FAMILY HISTOTY: Reviewed that are as dictated in H and P note done by Dr. Silvino Clemens. SOCIAL HISTORY: Reviewed that are as dictated in H and P note done by Dr. Silvino Clemens. CURRENT MEDICATIONS: Reviewed that are as dictated in H and P note done by Dr. Silvino Clemens. ALLERGIES: Reviewed that are as dictated in H and P note done by Dr. Silvino Clemens. REVIEW OF SYSTEMS: As mentioned above in the HPI, otherwise negative. PHYSICAL EXAMINATION: VITAL SIGNS: Blood pressure 131/82, pulse of 64, temperature of 97.6, respirations of 16, O2 sats 95 % on room air. GENERAL: A well-developed, well-nourished female in no apparent distress. RESPIRATORY: Clear to auscultation bilaterally. CARDIOVASCULAR: Regular rate and rhythm. NEUROLOGIC: Mental status: The patient is awake, alert, oriented x3. Speech and language: Fluent speech. Cranial nerves: Pupils are 3 mm and reactive. Visual dowd are intact. Extraocular muscl es are intact. No nystagmus noted. No ptosis noted. Face appears symmetric. Tongue and uvula are midline. Motor exam showed normal tone and bulk with a 5/5 strength in the left upper and left lower extremity. She has a 4+/5 strength in the right upper extremity and right lower extremity. Sensory : Sensation is intact and symmetric. Deep tendon reflexes: Brisk reflexes in both upper extremitie s and 1+ reflexes in both lower extremities. Babinski: Plantar responses extensor bilaterally. She has positive Orta bilaterally. Gait and Romberg coordination could not be tested. LABORATORY DATA: Reviewed, which included CBC, CMP, and urinalysis, which is significant for AST of 44. Otherwise, unremarkable. IMPRESSION: 1. Acute multiple sclerosis exacerbation. 2. Bilateral upper and lower extremities weakness, right more than the left. 3. Vision difficulty due to #1. Ms. Denis is a pleasant 47-year-old female who presented with the acute worsening of her MS symptoms with increasing weakness in the right side as well as difficulty with vision and gait imb alance. Her symptoms are likely indicative of acute MS exacerbation. I would recommend admitting he r to the Hospitalist Service and perform IV Solu-Medrol 250 mg q.6 hours for 3-5 days. She will need to be closely monitored for her neurological exam over the next 2-3 days. If she continues to have increasing weakness, then we may have to extend IV steroids to 5 days. I will reassess her for neuro logical function after the completion of 4th day. Continue supportive care. Continue current medica l management. Thank you for consultation.
[2018-07-23] MEDS: HYDROcodone/Acetaminophen 5/325 mg Tablet PO PRN (08:10)
[2018-07-23] MEDS: Gabapentin 300 MG CAP PO SCH (08:11)
[2018-07-23] MEDS: Enoxaparin Sodium 40 MG/0.4 ML SYRINGE SC SCH (08:12)
[2018-07-23] MEDS: Polyethylene Glycol 3350 17 GM Packet PO SCH (08:12)
--- NOTE | 2018-07-23 10:57 | PDOC.PN ---
- Subjective Encounter Start Date: 07/23/18 Encounter Start Time: 08:00 Patient seen and examined. No new complaints. No overnight events - Objective Resuscitation Status: Resuscitation Status FULL:Full Resuscitation MAR Reviewed: Yes Vital Signs & Weight: Vital Signs (12 hours) Temp Pulse Resp BP Pulse Ox 07/23/18 08:00 97.8 F 92 16 95 07/23/18 07:39 97.8 F 92 16 154/80 H 95 07/23/18 04:00 98.3 F 61 12 125/57 L 95 07/23/18 00:00 98.4 F 60 16 118/62 96 Weight Weight 315 lb I&O: 07/22/18 07/23/18 07/24/18 06:59 06:59 06:59 Intake Total 2620 1240 240 Balance 2620 1240 240 Result Diagrams: 07/19/18 03:25 07/19/18 03:25 Additional Labs: Accuchecks 07/23/18 07/22/18 07/22/18 06:38 19:31 16:36 POC Glucose 162 H 270 H 265 H Phys Exam - Physical Examination Constitutional: NAD HEENT: PERRLA, moist MMs, sclera anicteric Neck: no JVD, supple Respiratory: no wheezing, no rales, no rhonchi Cardiovascular: RRR, no significant murmur, no rub Gastrointestinal: soft, non-tender, no distention, positive bowel sounds Musculoskeletal: no edema, pulses present Neurological: non-focal, normal sensation Lymphatic: no nodes Psychiatric: normal affect Skin: no rash, normal turgor Dx/Plan (1) Multiple sclerosis exacerbation Code(s): G35 - MULTIPLE SCLEROSIS Status: Acute (2) Hyperglycemia, drug-induced Code(s): R73.9 - HYPERGLYCEMIA, UNSPECIFIED; T50.905A - ADVERSE EFFECT OF UNSP DRUG/MEDS/BIOL SUBST, INIT Status: Acute Comment: due to steroid (3) Anxiety and depression Code(s): F41.9 - ANXIETY DISORDER, UNSPECIFIED; F32.9 - MAJOR DEPRESSIVE DISORDER, SINGLE EPISODE, UNSPECIFIED Status: Chronic (4) Chronic constipation Code(s): K59.09 - OTHER CONSTIPATION Status: Chronic (5) Morbid obesity with BMI of 50.0-59.9, adult Code(s): E66.01 - MORBID (SEVERE) OBESITY DUE TO EXCESS CALORIES; Z68.43 - BODY MASS INDEX (BMI) 50-59.9 , ADULT Status: Chronic (6) Neurogenic bladder Code(s): N31.9 - NEUROMUSCULAR DYSFUNCTION OF BLADDER, UNSPECIFIED Status: Chronic (7) NIMESH (obstructive sleep apnea) Code(s): G47.33 - OBSTRUCTIVE SLEEP APNEA (ADULT) (PEDIATRIC) Status: Chronic Comment: on cpap - Plan cont current plan of care * finished 5 day high dose solumedrol * medrol dose pack on discharge * zanaflex and valium as needed * medication reviewed as below * symptomatic treatment * see discharge kevin. Review of Systems - Review of Systems ENT: negative: Ear Pain, Ear Discharge, Nose Pain, Nose Discharge, Nose Congestion, Mouth Pain, Mouth Swelling, Throat Pain, Throat Swelling, Other Respiratory: negative: Cough, Dry, Shortness of Breath, Hemoptysis, SOB with Excertion, Pleuritic Pain, Sputum, Wheezing Cardiovascular: negative: chest pain, palpitations, orthopnea, paroxysmal nocturnal dyspnea, edema, light headedness, other Gastrointestinal: negative: Nausea, Vomiting, Abdominal Pain, Diarrhea, Constipation, Melena, Hematochezia, Other Genitourinary: negative: Dysuria, Frequency, Incontinence, Hematuria, Retention , Other Musculoskeletal: negative: Neck Pain, Shoulder Pain, Arm Pain, Back Pain, Hand Pain, Leg Pain, Foot Pain, Other Skin: negative: Rash, Lesions, José Miguel, Bruising, Other - Medications/Allergies Allergies/Adverse Reactions: Allergies Allergy/AdvReac Type Severity Reaction Status Date / Time No Known Allergies Allergy Verified 07/18/18 17:53 Medications: Current Medications Acetaminophen (Tylenol) 650 mg PO Q4H PRN PRN Reason: Headache/Fever or Pain Hydrocodone Bitart/Acetaminophen (Brooks 5/325) 1 tab PO Q4H PRN PRN Reason: Moderate Pain (4-6) Last Admin: 07/23/18 08:10 Dose: 1 tab Al Hydroxide/Mg Hydroxide (Maalox) 30 ml PO Q6H PRN PRN Reason: Heartburn or Indigestion Artificial Tears (Tears Naturale) 0 drop EA EYE PRN PRN PRN Reason: Dry Eyes Bisacodyl (Dulcolax) 10 mg VA Q8H PRN PRN Reason: Constipation Cholecalciferol (Vitamin D3) 2,000 units PO DAILY [facility] Last Admin: 07/23/18 08:11 Dose: 2,000 units Cyclobenzaprine HCl (Flexeril) 10 mg PO TID PRN PRN Reason: Muscle Spasm Dextrose/Water (Dextrose 50%) 25 gm SLOW IVP PRN PRN PRN Reason: Hypoglycemia Diazepam (Valium) 5 mg PO BID PRN PRN Reason: Anxiety/Restlessness/Sleep Last Admin: 07/23/18 00:39 Dose: 5 mg Enoxaparin Sodium (Lovenox) 40 mg SC 09 [facility] Last Admin: 07/23/18 08:12 Dose: 40 mg Escitalopram Oxalate (Lexapro) 10 mg PO HS [facility] Last Admin: 07/22/18 20:53 Dose: 10 mg Gabapentin (Neurontin) 600 mg PO TID [facility] Last Admin: 07/23/18 08:11 Dose: 600 mg Glucagon (Glucagon) 1 mg IM PRN PRN PRN Reason: Hypoglycemia Guaifenesin (Robitussin Sf) 200 mg PO Q4H PRN PRN Reason: Cough Hydralazine HCl (Apresoline) 10 mg SLOW IVP Q4H PRN PRN Reason: Systolic BP > 180 Dextrose/Water (D5w) 1,000 mls @ 0 mls/hr IV .Q0M PRN PRN Reason: Hypoglycemia Methylprednisolone Sodium Succinate 250 mg/Miscellaneous Medication 1 each/ Sodium Chloride 104 mls @ 208 mls/hr IVPB Q6HR [facility] Last Admin: 07/23/18 05:53 Dose: 104 mls Insulin Human Lispro (Humalog) 0 units SC .MODERATE SLIDING SC PRN PRN Reason: Moderate Correctional Scale Insulin Human Lispro (Humalog) 0 units SC .BEDTIME SLIDING SC PRN PRN Reason: Bedtime Correctional Scale Loperamide HCl (Imodium) 2 mg PO PRN PRN PRN Reason: Diarrhea/Loose Stools Loratadine (Claritin) 10 mg PO DAILYPRN PRN PRN Reason: Sinus Symptoms Magnesium Hydroxide (Milk Of Magnesium) 30 ml PO DAILYPRN PRN PRN Reason: Constipation Mineral Oil/White Petrolatum (Eucerin Cream) 0 gm TOP BIDPRN PRN PRN Reason: Dry Skin Mirabegron (Myrbetriq Er) 50 mg PO DAILY [facility] Last Admin: 07/23/18 08:11 Dose: 50 mg Ondansetron HCl (Zofran Odt) 4 mg PO Q6H PRN PRN Reason: Nausea/Vomiting Ondansetron HCl (Zofran) 4 mg IVP Q6H PRN PRN Reason: Nausea/Vomiting Pantoprazole Sodium (Protonix) 40 mg PO DAILY [facility] Last Admin: 07/23/18 08:11 Dose: 40 mg Phenol (Chloraseptic [place] 180 Ml Bot) 0 ml PO PRN PRN PRN Reason: Sore Throat Polyethylene Glycol (Miralax) 17 gm PO DAILY [facility] Last Admin: 07/23/18 08:12 Dose: Not Given Senna (Senokot) 2 tab PO HSPRN PRN PRN Reason: Constipation Last Admin: 07/22/18 12:37 Dose: 2 tab Sodium Chloride (Morning Sun Nasal [place] 0.65%) 0 ml EA NARE QIDPRN PRN PRN Reason: Nasal Congestion Venlafaxine HCl (Effexor Xr) 37.5 mg PO [facility] Last Admin: 07/22/18 22:12 Dose: 37.5 mg Zolpidem Tartrate (Ambien) 5 mg PO HSPRN PRN PRN Reason: Insomnia
[2018-07-23 11:32] VITALS: BP 127/60; TEMP 98.2
--- NOTE | 2018-07-23 12:27 | DIS ---
DATE OF ADMISSION: 07/18/2018 DATE OF DISCHARGE: 07/23/2018 PRIMARY CARE PHYSICIAN: Dr. Carmela Mueller. DISCHARGE DISPOSITION: Home. PRIMARY DISCHARGE DIAGNOSES: 1. Multiple sclerosis exacerbation. 2. Hyperglycemia due to steroid. SECONDARY DISCHARGE DIAGNOSES: 1. Obstructive sleep apnea, on CPAP. 2. Morbid obesity with BMI 50. 3. Neurogenic bladder. 4. Chronic constipation. 5. Anxiety and depression. PRIMARY PROCEDURE AND OPERATION: None. RADIOLOGICAL INVESTIGATION: Chest x-ray was normal. SIGNIFICANT LABORATORY DATA: WBC 8.7, hemoglobin 14.8, platelet 175. Sodium 137, creatinine 0.83. LFT normal. Cardiac enzymes negative. Hemoglobin A1c 5.3. Urinalysis normal. DISCHARGE MEDICATIONS: The patient will continue to get Tysabri injection every month for her multip le sclerosis. New medication: Medrol Dosepak as directed, Zanaflex 4 mg p.o. b.i.d. p.r.n. Continu e following medications: Vitamin D3 2000 units p.o. daily, Lexapro 10 mg p.o. at bedtime, gabapentin 600 mg t.i.d., mirabegron 50 mg p.o. at bedtime, venlafaxine ER 37.5 mg p.o. at bedtime. CONTRAINDICATIONS: None. CODE STATUS: FULL CODE. INPATIENT PERSONNEL QUALITY ASSURANCE AUDITOR: Dr. Ethel Ortiz, was following while in hospital. TEST RESULTS PENDING ON DISCHARGE: None. ALLERGIES: No known drug allergy. DISCHARGE PLAN: Post hospital, the patient will follow up with Neurology and primary care physician. HOSPITAL COURSE: The patient is a 47-year-old female who has multiple sclerosis and she is on Tysabr i injection every month, which is controlling her multiple sclerosis. For last few days, she was exp eriencing multiple sclerosis flare-up with muscle spasm, weakness, bone pain and neuropathic pain, th at is why she went to see Dr. Ortiz, who advised her to go to the emergency room for admission. The p atient was admitted to medical floor. She was treated with high dose of Solu-Medrol for 5 days. Whi le in hospital, she had clinical improvement. She was having intermittent muscle spasm and that is w hy we prescribed Zanaflex and Valium p.r.n. basis. Patient is given Medrol Dosepak after discharge. Neurology cleared her for discharge. The patient is instructed to follow up with primary neurologist and primary care physician. The patient is seen and examined at bedside today. Please see my progr ess note from today for further detail.
== END 2018-07-23 13:54 | disposition home or self-care (01) | DRG 59 ==
LOC: ERS 10:02 → T4-A 15:42
PROVIDERS: ADMIT Internal Medicine; ATTEND Internal Medicine
DX: G35 Multiple sclerosis (principal); Z68.43 Body mass index [BMI] 50.0-59.9, adult; E66.01 Morbid (severe) obesity due to excess calories; N31.9 Neuromuscular dysfunction of bladder, unspecified; F41.9 Anxiety disorder, unspecified; F32.9 Major depressive disorder, single episode, unspecified; F43.10 Post-traumatic stress disorder, unspecified; G47.33 Obstructive sleep apnea (adult) (pediatric); K59.09 Other constipation; R53.1 Weakness; R73.9 Hyperglycemia, unspecified; Z79.899 Other long term (current) drug therapy
CPT/HCPCS: 36415; 36416; 71045; 80048; 80053; 81001; 82553; 83036; 84484; 85025; 93005; 96365; J1650; J2930; J7050

== ENCOUNTER 2018-08-05 15:10 | Emergency (ER) | payer OTHER ==
[2018-08-05] MEDS ORDERED: methylPREDNISolone Sod Succ/PF 125 MG/2 ML VIAL ONE (16:15)
[2018-08-05] MEDS ORDERED: Meclizine HCl 25 MG TAB ONE (16:15)
[2018-08-05 16:18] LABS: #Eosinphils 0.2 thou/uL (0.0-0.7); #Lymphocytes 1.8 thou/uL (1.20-3.40); #Monocytes 0.5 thou/uL (0.11-0.59); #Neutrophils 6.8 thou/uL (1.40-6.50); %Basophils 0.4 % (0.0-1.0); %Lymphocytes 19.1 % (21.0-51.0); %Monocytes 4.9 % (0.0-10.0); %Neutrophils 73.6 % (42.0-75.0); Hemoglobin 13.9 g/dL (12.0-16.0); Mean Corpuscular HGB CONC 33.2 g/dL (32.0-36.0); Mean Corpuscular Volume 93.2 fL (78.0-98.0); Mean Platelet Volume 7.6 fL (7.4-10.4); Platelet Count 121 thou/uL (130-400); RBC Distribution Width 14.1 % (11.5-14.5); White Blood Cell (WBC) Count 9.3 thou/uL (4.8-10.8)
[2018-08-05] MEDS ORDERED: Promethazine HCl 25 MG/ML VIAL ONE (16:33)
[2018-08-05 16:34] LABS: ALT (SGPT) 67 U/L (8-55); AST (SGOT) 25 U/L (5-34); Albumin 4.1 g/dL (3.5-5.0); Alkaline Phosphatase 110 U/L (40-150); Anion Gap 13 mmol/L (10-20); BUN (Urea Nitrogen) 9 mg/dL (7.0-18.7); Calc. Creatinine Clearance 0 mL/min (70-130); Calcium 9.1 mg/dL (7.8-10.44); Carbon Dioxide 22 mmol/L (22-29); Chloride 107 mmol/L (98-107); Estimated GFR-MDRD 84; Globulin 2.7 g/dL (2.4-3.5); Glucose 113 mg/dL (70-105); Potassium 3.8 mmol/L (3.5-5.1); Protein, Total 6.8 g/dL (6.0-8.3); Sodium 138 mmol/L (136-145)
[2018-08-05 16:34] LABS: Bilirubin Negative (Negative); Blood, Urine Negative (Negative); Clarity CLOUDY (Clear); Glucose, Urine (Dipstick) Negative (Negative); Leukocyte Negative (Negative); Nitrite Negative (Negative); Protein, Urine (Dipstick) Negative (Neg-Trace); Specific Gravity, Urine 1.016 (1.002-1.036)
== END 2018-08-05 19:00 | disposition home or self-care (01) ==
LOC: ERS 15:10
DX: G35 Multiple sclerosis (principal); F32.9 Major depressive disorder, single episode, unspecified; Z79.899 Other long term (current) drug therapy
CPT/HCPCS: 80053; 81003; 85025; 85652; 86140; 87086; 93005; 96365; 96375; J2550; J2930

== ENCOUNTER 2018-08-28 09:39 | Outpatient (CLI) | payer OTHER ==
--- NOTE | 2018-08-28 14:13 | MRI ---
MRI BRAIN WITH AND WITHOUT CONTRAST: Multiplanar, multisequential imaging of brain obtained. Postcontrast images were obtained after administration of 20 cc MultiHance. INDICATION: Followup MS. COMPARISON: Comparison is made to MRI brain -18. Ventricles have normal size and position. There is no evidence of restricted diffusion. Numerous white matter hyperintensities are seen in the subcortical and periventricular white matter o f both cerebral hemispheres on FLAIR sequence. Size and number of these lesions have not significant ly changed when compared to 04/01/2018. The largest lesion is again seen in the subcortical white mat ter of the right frontal lobe measuring in the 13 mm range. The other lesions are all subcentimeter. On postcontrast images, there is no evidence of enhancement. There are mucous retention cysts seen in both maxillary sinuses, similar to the prior exam. Visualiz ed internal carotid arteries and cerebral arteries show normal-appearing flow voids. Dural venous si nuses are patent. IMPRESSION: White matter lesions are stable when compared to 04/01/2018. No evidence of active demyelination. POS: [facility]
--- NOTE | 2018-08-28 14:36 | MRI ---
MRI THORACIC SPINE WITH AND WITHOUT CONTRAST: Date: 08/28/18 Multiplanar, multisequential imaging of thoracic spine obtained. Postcontrast images are obtained aft er administration of 20 mL MultiHance. INDICATION; Multiple sclerosis. FINDINGS: The thoracic vertebra maintain normal height and alignment. Vertebral body signal is normal. The T2 images are somewhat suboptimal and evaluation of the cord is limited on the T2 sagittal. No ev idence of cord lesion seen on axial T2 in the thoracic cord. The postcontrast images are adequate and there is no evidence of cord enhancement in the thoracic cor d. However, there is a focus of enhancement in the lower cervical cord seen on the superior portion of t his exam at the C6-C7 level. This is not adequately evaluated on T2 study. Recommend additional evalu ation with MRI cervical spine. IMPRESSION: 1. No definite thoracic cord lesion identified. 2. There is evidence of enhancement in the lower cervical cord seen best on the postcontrast fat sat uration sagittal image. This is suspicious for an active plaque in the lower cervical cord. Recommend better evaluation with dedicated MRI of cervical spine with and without contrast. POS: [facility]
== END 2018-08-28 09:40 | disposition home or self-care (01) ==
LOC: BICMRI 09:39
PROVIDERS: ATTEND Psychiatry & Neurology Neurology
DX: G35 Multiple sclerosis (principal); G93.9 Disorder of brain, unspecified
CPT/HCPCS: 70553; 72157

== ENCOUNTER 2018-09-15 10:15 | Outpatient (CLI) | payer OTHER ==
[2018-09-15] MEDS ORDERED: Gadobenate Dimeglumine 529 MG/1 ML (20ML VIAL) ONE (12:07)
--- NOTE | 2018-09-15 14:55 | MRI ---
MRI CERVICAL SPINE WITH AND WITHOUT CONTRAST: Technique: Multiplanar, multisequence MRI images were obtained of the cervical spine. Post contrast i mages followed administration of IV MultiHance. Indications: Multiple sclerosis follow up. Comparison: MRI cervical spine, 04-01-18. FINDINGS: Cervical vertebrae maintain normal height and alignment. Mild loss of disc space at C5-6 and C6-7 wit h mild degenerative changes at these levels. No significant disc abnormality at C2-3 or C3-4. C4-5: Posterior disc bulge and spondylosis efface the anterior subarachnoid space. No cord impingemen t. C5-6: Posterior disc bulge and spondolytic change is more prominent at the anterior cord. There is ri ght foraminal encroachment at this level due to uncinate hypertrophy. Very mild disc bulge and spondy losis at C6-7 minimally flattens the anterior thecal sac. The anterior subarachnoid space is minimall y effaced. Mild right foraminal encroachment at this level due to uncinate hypertrophy. The cervical cord signal is normal. There is no evidence of MS plaque. No cord enhancement is seen. IMPRESSION: 1. Posterior disc bulge and spondolytic change at C4-5, C5-6, and C6-7 as described above. Findings a re most pronounced at C5-6. Findings appear stable from the prior exam. 2. No abnormal cervical cord signal identified. POS: [facility]
== END 2018-09-15 10:16 | disposition home or self-care (01) ==
LOC: BICMRI 10:15
PROVIDERS: ATTEND Psychiatry & Neurology Neurology
DX: G35 Multiple sclerosis (principal); M47.892 Other spondylosis, cervical region; M50.921 Unspecified cervical disc disorder at C4-C5 level
CPT/HCPCS: 72156; A9579

== ENCOUNTER 2019-03-02 14:30 | Outpatient (CLI) | payer OTHER ==
--- NOTE | 2019-03-02 16:05 | MRI ---
EXAM: MRI of the brain without and with contrast HISTORY: Multiple sclerosis COMPARISON: 08/28/2018 TECHNIQUE: Multiplanar multisequence MR images were obtained of the brain without and with IV contras t. FINDINGS: There are numerous scattered foci of high FLAIR signal in the subcortical and periventricular white m atter consistent with the patient's diagnosis of multiple sclerosis. These are stable in size and number compared to the prior examination. No restricted diffusion. No abnormal enhancement. No hydronephrosis. No extra-axial fluid collection or intracranial hemorrhage. The expected flow voids are present. Corpus callosum, pituitary, and craniocervical junction are within normal limits. The calvarium and overlying soft tissues are unremarkable. Mucous retention cysts are seen in the bilateral maxillary sinuses. IMPRESSION: Stable findings in the white matter consistent with the diagnosis of multiple sclerosis.
== END 2019-03-02 14:31 | disposition home or self-care (01) ==
LOC: TBSIIMAG 14:30
PROVIDERS: ATTEND Psychiatry & Neurology Neurology
DX: G35 Multiple sclerosis (principal)
CPT/HCPCS: 70553

== ENCOUNTER 2019-05-15 10:18 | Outpatient (CLI) | payer OTHER ==
--- NOTE | 2019-05-15 11:50 | MMO ---
Bilateral MAMMO Bilat Diag [facility]. CLINICAL HISTORY: Patient is 48 years old and is seen for diagnostic exam. The patient has the following family history of breast cancer: maternal grandmother. The patient has no personal history of cancer. VIEWS: The views performed were: bilateral craniocaudal with tomosynthesis; bilateral mediolateral oblique with tomosynthesis; and bilateral mediolateral with tomosynthesis. FILMS COMPARED: The present examination has been compared to prior imaging studies performed at [facility] on 03/14/2016, 03/15/2017, 03/17/2018 and 03/24/2018. MAMMOGRAM FINDINGS: The breasts are almost entirely fat. Finding 1: The mass in the far posterior right breast at 6:00 has decreased in size from the prior exam. It may be an involuting lymph node or a cluster of involuting cysts. Finding 2: There are no suspicious masses, calcifications or areas of architectural distortion bilaterally. There are no suspicious masses, suspicious calcifications, or new areas of architectural distortion. IMPRESSION: THERE IS NO MAMMOGRAPHIC EVIDENCE OF MALIGNANCY. A ROUTINE FOLLOW-UP MAMMOGRAM IN 1 YEAR IS RECOMMENDED. THE RESULTS OF THIS EXAM WERE SENT TO THE PATIENT. ACR BI-RADS Category 2 - Benign finding MAMMOGRAPHY NOTE: 1. A negative mammogram report should not delay a biopsy if a dominant of clinically suspicious mass is present. 2. Approximately 10% to 15% of breast cancers are not detected by mammography. 3. Adenosis and dense breasts may obscure an underlying neoplasm.
== END 2019-05-15 10:19 | disposition home or self-care (01) ==
LOC: BICMAMMO 10:18
PROVIDERS: ATTEND Physician Assistant
DX: R92.8 Other abnormal and inconclusive findings on diagnostic imaging of breast (principal); Z80.3 Family history of malignant neoplasm of breast
CPT/HCPCS: 77066; G0279

== ENCOUNTER 2020-05-17 13:31 | Outpatient (CLI) | payer OTHER ==
--- NOTE | 2020-05-17 16:17 | MMO ---
Bilateral MAMMO Bilat Screen [facility]. CLINICAL HISTORY: Patient is 49 years old and is seen for screening. The patient has the following family history of breast cancer: maternal grandmother, at age 86. The patient has no personal history of cancer. VIEWS: The views performed were: bilateral craniocaudal and bilateral mediolateral oblique. FILMS COMPARED: The present examination has been compared to prior imaging studies performed at [facility] on 03/15/2017, 03/17/2018, 03/24/2018 and 05/15/2019. This study has been interpreted with the assistance of computer-aided detection. MAMMOGRAM FINDINGS: The breasts are almost entirely fat. There are benign appearing calcifications seen in the right breast. There are no suspicious masses, suspicious calcifications, or new areas of architectural distortion. IMPRESSION: THERE IS NO MAMMOGRAPHIC EVIDENCE OF MALIGNANCY. A ROUTINE FOLLOW-UP MAMMOGRAM IN 1 YEAR IS RECOMMENDED. ACR BI-RADS Category 2 - Benign finding MAMMOGRAPHY NOTE: 1. A negative mammogram report should not delay a biopsy if a dominant of clinically suspicious mass is present. 2. Approximately 10% to 15% of breast cancers are not detected by mammography. 3. Adenosis and dense breasts may obscure an underlying neoplasm. Reported by: DAVID DE LA TORRE MD Electonically Signed: [id number]
== END 2020-05-17 13:32 | disposition home or self-care (01) ==
LOC: BICMAMMO 13:31
PROVIDERS: ATTEND Family Medicine
DX: Z12.31 Encounter for screening mammogram for malignant neoplasm of breast (principal); Z80.3 Family history of malignant neoplasm of breast
CPT/HCPCS: 77067

== ENCOUNTER 2020-05-23 05:46 | Outpatient (CLI) | payer OTHER ==
[2020-05-24 13:10] LABS: SARS-CoV-2 MS2 Positive; SARS-CoV-2 N Gene Negative; SARS-CoV-2 S Gene Negative; SARS-CoV-2 orf1ab Negative
== END 2020-05-23 05:47 | disposition home or self-care (01) ==
LOC: LABBT 05:46
PROVIDERS: ATTEND Internal Medicine
DX: Z01.812 Encounter for preprocedural laboratory examination (principal); Z11.59 Encounter for screening for other viral diseases; Z12.11 Encounter for screening for malignant neoplasm of colon
CPT/HCPCS: 87635; U0003

== ENCOUNTER 2020-05-27 07:13 | Day surgery (SDC) | payer OTHER ==
[2020-05-20 11:49] VITALS: BMI 53.2
--- NOTE | 2020-05-27 09:52 | OP ---
DATE OF PROCEDURE: 05/27/2020 PROCEDURE PERFORMED: Colonoscopy (screening). INDICATION FOR PROCEDURE: Screening for malignant neoplasm of the colon, no mention of family history of colon polyps or cancer. DESCRIPTION OF PROCEDURE: After the risks and benefits of the procedure were explained to the patient including risks of bleeding, infection, perforation, reactions to anesthesia, aspiration, and/or pain, informed consent was obtained. The patient was then taken to the endoscopy suite where she was maneuvered into the left lateral decubitus position followed by introduction of deep sedation via propofol and anesthesia support. Once adequate sedation was achieved, a digital rectal examination was performed followed by introduction of the standard colonoscope, which was advanced to the cecum with some difficulty secondary to redundancy of the colon, the patient's body habitus, and presence of diverticular disease. The quality of the prep was good. The patient tolerated the procedure well with no immediate perioperative complications. On conclusion of the procedure, all equipment was removed from the patient and she was transferred to Day Stay in satisfactory condition. FINDINGS: Digital rectal exam: Normal findings were seen on external examination. Colon findings: Normal-appearing mucosa was seen at the appendiceal orifice and ileocecal valve. Normal-appearing mucosa was then seen in the cecum, ascending colon, transverse colon, descending colon, sigmoid colon, and rectum. Scattered small diverticula were seen in the sigmoid colon, but did not exhibit any evidence of increased erythema or colonic narrowing. Small internal hemorrhoids were seen on rectal retroflexion. IMPRESSION: 1. [id number] sigmoid diverticulosis. 2. Small internal hemorrhoids. 3. Technically difficult colonoscopy secondary to the patient's body habitus and redundant colon. RECOMMENDATIONS: 1. Would recommend a repeat colonoscopy in 10 years as part of screening for malignant neoplasm of the colon. 2. Would recommend a higher fiber diet given the presence of hemorrhoids and diverticulosis. 3. Continue current medications. 4. Would follow up in the GI clinic as needed. Job ID: [id number]
[2020-05-27] MEDS ORDERED: PROPOFOL 200 MG/20 ML VIAL ONE (12:16)
== END 2020-05-27 10:30 | disposition home or self-care (01) ==
LOC: SDC 07:13
PROVIDERS: ATTEND Internal Medicine
PROC: 0DJD8ZZ Inspection of Lower Intestinal Tract, Via Natural or Artificial Opening Endoscopic (ICD-10-PCS; principal; 2020-05-27)
DX: Z12.11 Encounter for screening for malignant neoplasm of colon (principal); K57.30 Diverticulosis of large intestine without perforation or abscess without bleeding; K64.8 Other hemorrhoids; K21.9 Gastro-esophageal reflux disease without esophagitis; G47.30 Sleep apnea, unspecified; G35 Multiple sclerosis; Z79.899 Other long term (current) drug therapy
CPT/HCPCS: J2704

== ENCOUNTER 2020-06-08 17:13 | Inpatient (IN) | payer OTHER ==
[2020-06-08 18:49] LABS: #Basophils 0.1 thou/uL (0.0-0.2); #Eosinphils 0.3 thou/uL (0.0-0.7); #Lymphocytes 1.7 thou/uL (1.20-3.40); #Monocytes 0.3 thou/uL (0.11-0.59); #Neutrophils 2.9 thou/uL (1.40-6.50); %Basophils 1.8 % (0.0-1.0); %Eosinophils 5.8 % (0.0-10.0); %Lymphocytes 31.6 % (21.0-51.0); %Neutrophils 54.9 % (42.0-75.0); Hemoglobin 15.8 g/dL (12.0-16.0); Mean Corpuscular HGB CONC 34.6 g/dL (32.0-36.0); Mean Corpuscular Hemoglobin 32.4 pg (27.0-31.0); Mean Corpuscular Volume 93.5 fL (78.0-98.0); Mean Platelet Volume 10.3 fL (7.4-10.4); Platelet Count 155 thou/uL (130-400); RBC Distribution Width 12.7 % (11.5-14.5); Red Blood Cell (RBC) Count 4.89 mill/uL (4.20-5.40); White Blood Cell (WBC) Count 5.3 thou/uL (4.8-10.8)
[2020-06-08 19:13] LABS: ALT (SGPT) 82 U/L (8-55); AST (SGOT) 78 U/L (5-34); Albumin 4.4 g/dL (3.5-5.0); Alkaline Phosphatase 176 U/L (40-110); Anion Gap 19 mmol/L (10-20); BUN (Urea Nitrogen) 6 mg/dL (7.0-18.7); Bilirubin, Total 0.5 mg/dL (0.2-1.2); Calc. Creatinine Clearance 0 mL/min (70-130); Calcium 9.8 mg/dL (7.8-10.44); Carbon Dioxide 20 mmol/L (22-29); Chloride 96 mmol/L (98-107); Estimated GFR-MDRD 52; Globulin 4.3 g/dL (2.4-3.5); Glucose 498 mg/dL (70-105); Lipase 62 U/L (8-78); Potassium 4.3 mmol/L (3.5-5.1); Protein, Total 8.7 g/dL (6.0-8.3); Sodium 131 mmol/L (136-145)
--- NOTE | 2020-06-08 20:59 | ULT ---
Exam: Right upper quadrant ultrasound: HISTORY: Right upper quadrant abdominal pain. COMPARISON: None FINDINGS: Liver: Increased echogenicity likely attributable to diffuse fatty infiltration. This does limit eval uation of the hepatic parenchyma. Portions of the liver are not well visualized due to fatty infiltration and shadowing from ribs. Liver is delayed enlarged measuring 18 cm in craniocaudal dimen sions. Gallbladder: Incompletely distended, but no gallbladder calculi, gallbladder wall thickening, or della cholecystic fluid is seen. Common bile duct: Not definitively visualized. Pancreas: Limited visualized portions of the pancreas demonstrate a normal sonographic appearance. Right kidney: Right kidney demonstrates a normal sonographic appearance. The right kidney measures 2 .5 cm in length. IVC: The visualized IVC demonstrates a normal sonographic appearance. IMPRESSION: 1. Hepatomegaly and diffuse fatty infiltration the liver. Portions of the liver are not well evaluate d due to fatty infiltration and shadowing from adjacent ribs. 2. No gallbladder calculi are seen. 3. Common duct is not definitively visualized on this exam.
[2020-06-08] MEDS ORDERED: methylPREDNISolone Sod Succ 1 GM in Sodium Chloride 0.9% 250 ML 250 ML IVPB SCH (22:30)
[2020-06-08 23:56] VITALS: BMI 51.2
[2020-06-09] MEDS ORDERED: Calcium Carbonate 500 MG ChewTAB PO PRN (02:14)
[2020-06-09] MEDS ORDERED: HumaLOG 300 UNITS/3 ML VIAL SC PRN (02:19)
[2020-06-09] MEDS ORDERED: Dextrose 50% Abboject 50 ML SYRINGE SLOW IVP PRN (02:19)
[2020-06-09] MEDS ORDERED: Dextrose 5% in Water 1,000 ML IV PRN (02:19)
--- NOTE | 2020-06-09 03:21 | HP ---
PRIMARY CARE PHYSICIAN: Carmela Mueller MD CHIEF COMPLAINT: Multiple complaints. HISTORY OF PRESENT ILLNESS: The patient is a 49-year-old female with a past medical history significant for multiple sclerosis that presents to the ER for multiple complaints. The patient reports difficulty walking, usage of her left eye, and swallowing starting yesterday. She reports that it is typical of her normal MS exacerbation. She reports that her lower left foot was twitching. Reports that her left eyelid was acting sluggish compared to the right eyelid, she is able to open her eyes, denies any change in vision. Reports difficulty swallowing. She was attempting to drink some liquids and at that time noticed that it was just harder to swallow. She thought it might have been related to family stressors; however, she soon realized with the leg twitching and lag in her eyelid that was more likely a MS exacerbation. Denies any recent trauma or fall. No recent surgery or illness. She also reports some right upper quadrant pain, this is new for her. She describes it as sharp, radiating from the epigastric area to her right upper quadrant. She denies any nausea or vomiting. She did have some loose stools. She reports approximately one stool per day. The color is yellow. She does have a history of fatty liver disease. Denies any recent hospitalization or antibiotic usage. She denies any dysuria. She denies any recent fever or chills. She denies any chest pain, heart palpitations. She denies any shortness of breath. She denies any other symptomatology at this time. In the ER, her vital signs; she was afebrile, hypertensive, mildly tachycardic, normal respirations, normal oxygen saturation. Sodium was 131. WBCs were 5.3. Creatinine was 1.1. Dr. Montilla with Neurology was consulted. She recommended 1 g of Solu-Medrol ordered and an MRI in the a.m. and an EEG. PAST MEDICAL HISTORY: 1. MS diagnosed in 2013 and 2014. 2. Neurogenic bladder. 3. Frequent UTIs. 4. Morbid obesity. 5. Fatty liver. 6. PTSD. 7. Depression. 8. Hypertension, newly diagnosed one week ago. 9. Diabetes type 2, newly diagnosed one week ago. PAST SURGICAL HISTORY: . SOCIAL HISTORY: Lives with her parents. No history of smoking or illicit drug use. She drinks alcohol rarely. FAMILY HISTORY: Noncontributory to this case. ALLERGIES: NO KNOWN DRUG ALLERGIES. HOME MEDICATIONS: 1. Venlafaxine HCL 37.5 mg p.o. at bedtime. 2. Tizanidine 4 mg p.o. b.i.d. 3. Aubagio one tab p.o. at bedtime. 4. Metoprolol succinate 50 mg p.o. daily. 5. Gabapentin 600 mg p.o. t.i.d. 6. Lexapro 10 mg p.o. at bedtime. 7. Vitamin D3 of 2000 units p.o. daily. 8. Amitriptyline 100 mg one tablet p.o. at bedtime. REVIEW OF SYSTEMS: All review of systems are negative unless otherwise stated in the HPI. PHYSICAL EXAMINATION: VITAL SIGNS: Temperature 98.1, blood pressure 175/94, heart rate 92, respirations 18, 98% on room air. No pain. CONSTITUTIONAL: The patient is alert and oriented to person, place, and time, no acute distress. Nontoxic in appearance. HEAD: Atraumatic and normocephalic. EYES: PERRLA. Extraocular muscles intact. Left upper eyelid mildly lags when opening compared to the right. ENT: Bilateral EACs are clear. TMs intact. Nares are patent. Oropharynx clear. Uvula midline. Moist mucous membranes. No oral lesions. NECK: Full range of motion. No central spinous tenderness. No JVD. No cervical adenopathy. RESPIRATORY/CHEST: Respirations even and unlabored. Clear to auscultation. Breath sounds are distant secondary to body habitus. CARDIOVASCULAR: S1, S2 appreciated. No murmurs, rubs, or gallops. ABDOMEN: Abdomen is soft and nontender. Active bowel sounds. No guarding. No rigidity. No rebound. Negative Rovsing sign. Negative Michel sign. No abdominal bruit auscultated. BACK: Full range of motion. No central spinous tenderness. No CVA tenderness. EXTREMITIES: Upper extremities; full range of motion, strength intact, sensation intact, palpable radial pulses. Lower extremities; full range of motion, strength intact, sensation intact, palpable pedal pulses. NEUROLOGIC: Cranial nerves 2 through 12 are intact. Her left upper eyelid does tend to lag behind the right slightly, it is much improved she says from when she was admitted. She moves all extremities well. No focal motor deficits. The patient walks with a little bit of a limp. PSYCHIATRIC: Normal affect. A and O x3. LABS AND DIAGNOSTICS: CTA of brain was negative for any acute intracranial process. Abdominal ultrasound showed hepatomegaly and diffuse fatty liver. Sodium 131, potassium 4.3, chloride 96, carbon dioxide 20, BUN 6, creatinine 1.11, anion gap is 19, glucose 498 on presentation, 367 on the floor. Calcium 9.8, total bilirubin 0.5, AST 78, ALT 82, alkaline phosphatase 176, lipase 62. WBCs 5.3, hemoglobin 15.8, hematocrit 45.8, platelets 155. IMPRESSION AND PLAN: 1. Multiple sclerosis flare. Likely, we will admit the patient to the medical floor inpatient status. Expected length of stay greater than two midnights. The patient presented with symptoms consistent with a previous flare of her MS. Neurology was consulted in the ER, ordered Solu-Medrol 1 g IV piggyback. MRI of the brain and EEG ordered. The patient's symptoms improved upon my examination. 2. Hyponatremia. The patient presented with a sodium 131, corrected for blood sugar 367, it was 135. 3. Fatty liver. The patient has a history of fatty liver. She has transaminitis. She is not jaundiced. Has some right upper quadrant pain. Ultrasound showed fatty liver. We will check PT/INR in the a.m. 4. Diabetes type 2. The patient was newly diagnosed a week ago. She claims she has not been started on metformin for unknown reasons. Hemoglobin A1c was 9 on 05/16/2020. We will start moderate sliding scale with a.c. and at bedtime Accu-Cheks. 5. Hypertension. The patient reports newly diagnosed. She presented with a blood pressure of 175/94 currently. After getting her metoprolol, she is 137/82. She has no chest pain or shortness of breath. We will continue home medication of metoprolol and monitor blood pressures. 6. Obstructive sleep apnea. The patient wears a CPAP. Has her home CPAP at bedside and will wear in the evenings. 7. Post-traumatic stress disorder and depression. The patient takes venlafaxine and Lexapro. We will restart her home medications when reconciled by nursing. 8. Has a history of neurogenic bladder and frequent urinary tract infections. The patient has no urinary symptoms. We will get a UA for baseline. 9. Lovenox for deep venous thrombosis prophylaxis. The patient is a full code. 10. Discussed the case with Dr. Ferro. Job ID: [id number] MTDD
[2020-06-09 06:23] LABS: #Eosinphils 0.1 thou/uL (0.0-0.7); #Lymphocytes 0.9 thou/uL (1.20-3.40); #Monocytes 0.1 thou/uL (0.11-0.59); #Neutrophils 2.6 thou/uL (1.40-6.50); %Basophils 1.1 % (0.0-1.0); %Lymphocytes 25.3 % (21.0-51.0); %Monocytes 1.8 % (0.0-10.0); %Neutrophils 69.8 % (42.0-75.0); Mean Corpuscular HGB CONC 32.8 g/dL (32.0-36.0); Mean Corpuscular Hemoglobin 31.1 pg (27.0-31.0); Mean Corpuscular Volume 94.9 fL (78.0-98.0); Platelet Count 129 thou/uL (130-400); RBC Distribution Width 12.6 % (11.5-14.5); Red Blood Cell (RBC) Count 4.82 mill/uL (4.20-5.40); White Blood Cell (WBC) Count 3.7 thou/uL (4.8-10.8)
[2020-06-09 06:49] LABS: Anion Gap 24 mmol/L (10-20); BUN (Urea Nitrogen) 6 mg/dL (7.0-18.7); Calc. Creatinine Clearance 155 mL/min (70-130); Calcium 9.2 mg/dL (7.8-10.44); Carbon Dioxide 11 mmol/L (22-29); Chloride 100 mmol/L (98-107); Estimated GFR-MDRD 59; Glucose 487 mg/dL (70-105); Potassium 4.4 mmol/L (3.5-5.1); Sodium 131 mmol/L (136-145)
[2020-06-09 07:46] LABS: Bacteria/HPF None Seen HPF (None Seen); Bilirubin Negative (Negative); Blood, Urine Negative (Negative); Clarity Clear (Clear); Glucose, Urine (Dipstick) Greater than 1000 mg/dL (Negative); Ketone, Urine Greater than 150 mg/dL (Negative); Leukocyte Negative Leu/uL (Negative); Nitrite Negative (Negative); Protein, Urine (Dipstick) Negative (Neg-Trace); RBC/HPF 0-3 HPF (0-3); Specific Gravity, Urine 1.026 (1.002-1.036); Squamous Epithelial 0-3 HPF (0-3); Urobilinogen Normal mg/dL (Less than 2); WBC/HPF 0-3 HPF (0-3)
[2020-06-09] MEDS: Cholecalciferol 1,000 UNITS (25 MCG) TAB PO SCH (08:02)
[2020-06-09] MEDS: Gabapentin 300 MG CAP PO SCH ×3 (08:03→20:27)
[2020-06-09] MEDS: Enoxaparin Sodium 40 MG/0.4 ML SYRINGE SC SCH (08:03)
[2020-06-09] MEDS ORDERED: Famotidine 20 MG TAB PO SCH (09:00)
[2020-06-09] MEDS ORDERED: Magnevist 469MG/ML 20 ML VIAL ONE (09:03)
--- NOTE | 2020-06-09 09:19 | PDOC.HOSPP ---
- Subjective Encounter Date: 06/09/20 - Objective Vital Signs & Weight: Vital Signs (12 hours) Temp Pulse Resp BP Pulse Ox 06/09/20 08:08 98.2 F 89 20 150/70 H 92 L 06/09/20 04:10 98.5 F 83 18 139/84 95 06/08/20 23:56 98.0 F 80 18 137/82 98 Weight Weight 317 lb 6.4 oz Result Diagrams: 06/09/20 05:33 06/09/20 05:33 Additional Labs: Accuchecks 06/09/20 06/09/20 04:14 00:28 POC Glucose 425 H 367 H Hospitalist ROS - Medication Medications: Active Medications Generic Name Dose Route Start Last Admin Trade Name Freq PRN Reason Stop Dose Admin Cholecalciferol 2,000 units 06/09/20 09:00 06/09/20 08:02 Vitamin D3 PO 2,000 units DAILY HAIR Administration Enoxaparin Sodium 40 mg 06/09/20 09:00 06/09/20 08:03 Lovenox SC 40 mg 0900 HAIR Administration Gabapentin 600 mg 06/09/20 09:00 06/09/20 08:03 Neurontin PO 600 mg TID HAIR Administration Insulin Human Lispro 0 units 06/09/20 02:19 06/09/20 05:37 Humalog SC 10 unit .MODERATE SLIDING SC PRN Administration Moderate Correctional Scale Metoprolol Succinate 50 mg 06/09/20 09:00 06/09/20 08:03 Toprol Xl PO 50 mg DAILY HAIR Administration Pantoprazole Sodium 40 mg 06/09/20 09:00 06/09/20 08:03 Protonix PO 40 mg DAILY HAIR Administration
[2020-06-09] MEDS ORDERED: Insulin Glargine 15 UNITS in Pre-Filled Syringe 1 EACH SC SCH ×2 (09:30→21:00)
--- NOTE | 2020-06-09 10:06 | MRI ---
EXAM: MRI of the brain without and with contrast HISTORY: Multiple sclerosis COMPARISON: None TECHNIQUE: Multiplanar multisequence MR images were obtained of the brain without and with IV contras t. FINDINGS: Scattered stable foci of high T2/FLAIR signal are seen in the white matter consistent with patient's diagnosis of multiple sclerosis. No new FLAIR foci are appreciated. No restricted diffusion. No abnormal enhancement. No hydronephrosis. No extra-axial fluid collection or intracranial hemorrhage. The expected flow voids are present. Corpus callosum, pituitary, and craniocervical junction are within normal limits. The calvarium and overlying soft tissues are unremarkable. The paranasal sinuses and mastoid air cells are well aerated. IMPRESSION: Stable white matter lesions are consistent with multiple sclerosis. No enhancement is seen to suggest active disease.
--- NOTE | 2020-06-09 12:19 | CON ---
NEUROLOGY CONSULTATION DATE OF CONSULTATION: 06/09/2020 REASON FOR CONSULTATION: Multiple sclerosis exacerbation. HISTORY OF PRESENT ILLNESS: Ms. Belia Denis is a 49-year-old female with medical history significant for multiple sclerosis, presented to the emergency room with difficulty walking and swallowing, swelling and blurred vision in the left eye, which started yesterday per the patient. This is her presentation of MS exacerbation. She also reported twitching of the left foot. The patient denies focal numbness, focal paresthesia, nausea, vomiting, headache, chest pain or abdominal pain, or recent illness associated with the episode. She was admitted. A head CT was done, which was negative for acute intracranial pathology. She was admitted for further management of her MS exacerbation. She was given 1 g of Solu-Medrol around midnight. REVIEW OF SYSTEMS: All 10 systems were reviewed and were negative except the pertinent positives and negatives mentioned in the HPI. PAST MEDICAL HISTORY: MS diagnosed in 2014, followed by Dr. Hawkins; neurogenic bladder, frequent UTIs, fatty liver, PTSD, morbid obesity, depression, hypertension, and diabetes mellitus. PAST SURGICAL HISTORY: section. SOCIAL HISTORY: The patient lives with her parents. Denies smoking. Drinks alcohol occasionally. FAMILY HISTORY: Not significant for MS. ALLERGIES: NO KNOWN DRUG ALLERGIES. HOME MEDICATIONS: 1. Venlafaxine HCl 37.5 mg p.o. at bedtime. 2. Tizanidine 4 mg p.o. b.i.d. 3. Aubagio one tab p.o. at bedtime. 4. Metoprolol succinate 50 mg p.o. daily. 5. Gabapentin 600 mg p.o. t.i.d. 6. Lexapro 10 mg at bedtime. 7. Vitamin D3 of 2000 units p.o. daily. 8. Amitriptyline 100 mg one tab p.o. at bedtime. - Objective Vital Signs & Weight: Vital Signs (12 hours) Temp Pulse Resp BP Pulse Ox 06/09/20 08:08 98.2 F 89 20 150/70 H 92 L 06/09/20 04:10 98.5 F 83 18 139/84 95 06/08/20 23:56 98.0 F 80 18 137/82 98 Weight Weight 317 lb 6.4 oz Additional Labs: Accuchecks 06/09/20 06/09/20 04:14 00:28 POC Glucose 425 H 367 H Active Medications Generic Name Dose Route Start Last Admin Trade Name Dillanq PRN Reason Stop Dose Admin Cholecalciferol 2,000 units 06/09/20 09:00 06/09/20 08:02 Vitamin D3 PO 2,000 units DAILY HAIR Administration Enoxaparin Sodium 40 mg 06/09/20 09:00 06/09/20 08:03 Lovenox SC 40 mg 0900 HAIR Administration Gabapentin 600 mg 06/09/20 09:00 06/09/20 08:03 Neurontin PO 600 mg TID HAIR Administration Insulin Human Lispro 0 units 06/09/20 02:19 06/09/20 05:37 Humalog SC 10 unit .MODERATE SLIDING SC PRN Administration Moderate Correctional Scale Metoprolol Succinate 50 mg 06/09/20 09:00 06/09/20 08:03 Toprol Xl PO 50 mg DAILY HAIR Administration Pantoprazole Sodium 40 mg 06/09/20 09:00 06/09/20 08:03 Protonix PO 40 mg DAILY HAIR Administration PHYSICAL EXAMINATION: VITAL SIGNS: Blood pressure 170/90, pulse 80, respiratory rate 18. CVS: Regular rate and rhythm. CHEST: Clear. ABDOMEN: Soft. NECK: Supple. EXTREMITIES: No clubbing, cyanosis, or edema. NEUROLOGIC: Mental status; the patient is alert and oriented to person, place, and time. Speech is clear. Fund of knowledge is appropriate. Recent and remote memory intact. Cranial nerves 2 through 12 intact. Motor, muscle tone and bulk are normal. Moving all 4 extremities equally and symmetrically. Sensory intact. Gait deferred due to patient's safety reasons. Cerebellar, intact. DATA REVIEWED: I reviewed the CTA of the brain, which was negative for acute intracranial pathology. MRI of the brain reviewed, which shows stable changes consistent with MS. ASSESSMENT AND PLAN: 1. Ms. Belia Denis is consulted for multiple sclerosis exacerbation. Continue Solu-Medrol 1 g IV for 5 days. 2. Regular insulin sliding scale for steroid-induced hyperglycemia. 3. PPI for steroid-induced gastroesophageal reflux disease. 4. EEG since the patient reported some confusion associated with the episode. 5. MRI of brain reviewed, which showed changes consistent with multiple sclerosis. 6. Continue home medications. 7. Strict control of blood pressure and blood glucose. 8. Neuro checks every 4 hours. Accu-Cheks b.i.d. Continue home medications. Continue PT/OT. Continue medical management per primary team. Plan discussed in detail with the patient. Job ID: [id number] MTDD
[2020-06-09] MEDS: HumaLOG 300 UNITS/3 ML VIAL SC PRN ×4 (12:31→23:11)
--- NOTE | 2020-06-09 14:23 | EEG ---
DATE OF SERVICE: 06/09/2020 ATTENDING PHYSICIAN: Deloris Becker MD This EEG was performed using 24-channel [employer] video digital EEG machine with 24-disk electrodes. This was an extended 2 hours 10 minutes of inpatient video EEG recording. Digital analysis of the EEG was done for spike and seizure detection which revealed no abnormalities. BACKGROUND: The posterior background rhythm is 9 to 10 hertz. The background rhythm attenuates with eye opening and enhances with eye closure. HYPERVENTILATION: No significant response seen with hyperventilation. PHOTIC STIMULATION: Bioccipital symmetric driving responses observed. SLEEP: Drowsiness is observed. EEG DIAGNOSIS: Normal awake and drowsy EEG. Job ID: [id number]
[2020-06-09] MEDS ORDERED: glipiZIDE 10 MG TAB PO SCH (18:00)
[2020-06-09 18:34] LABS: Lactic Acid 0.9 mmol/L (0.5-2.2)
[2020-06-09 18:35] LABS: Phosphorus 2.9 mg/dL (2.3-4.7)
[2020-06-09 18:37] LABS: Anion Gap 24 mmol/L (10-20); BUN (Urea Nitrogen) 9 mg/dL (7.0-18.7); Calc. Creatinine Clearance 132 mL/min (70-130); Calcium 10.1 mg/dL (7.8-10.44); Carbon Dioxide 10 mmol/L (22-29); Chloride 102 mmol/L (98-107); Estimated GFR-MDRD 49; Glucose 438 mg/dL (70-105); Sodium 132 mmol/L (136-145)
[2020-06-09] MEDS ORDERED: Electrolyte Replacement Protocol FS SCH (18:45)
[2020-06-09] MEDS ORDERED: Insulin Glargine 20 UNITS in Pre-Filled Syringe SC SCH (19:00)
[2020-06-09] MEDS: Sodium Chloride 0.9% 1,000 ML IV SCH ×2 (19:17→20:27)
[2020-06-09] MEDS: Escitalopram Oxalate 10 mg Tablet PO SCH (20:28)
[2020-06-09] MEDS: Venlafaxine XR 37.5 MG CAP PO SCH (20:28)
[2020-06-09] MEDS: Amitriptyline HCl 100 MG TAB PO SCH (20:29)
[2020-06-09] MEDS ORDERED: methylPREDNISolone Sod Succ/PF 125 MG/2 ML VIAL IVP SCH (21:00)
[2020-06-09] MEDS: 1/2 NS w/KCL 20 mEq 1,000 ML IV SCH (21:41)
[2020-06-09] MEDS ORDERED: methylPREDNISolone Sod Succ 1 GM in Sodium Chloride 0.9% 250 ML 250 ML IVPB SCH (23:00)
[2020-06-09 23:43] LABS: Anion Gap 21 mmol/L (10-20); BUN (Urea Nitrogen) 8 mg/dL (7.0-18.7); Calc. Creatinine Clearance 140 mL/min (70-130); Calcium 9.1 mg/dL (7.8-10.44); Carbon Dioxide 13 mmol/L (22-29); Chloride 105 mmol/L (98-107); Estimated GFR-MDRD 53; Glucose 320 mg/dL (70-105); Potassium 3.9 mmol/L (3.5-5.1); Sodium 135 mmol/L (136-145)
[2020-06-10 01:42] LABS: Anion Gap 17 mmol/L (10-20); BUN (Urea Nitrogen) 8 mg/dL (7.0-18.7); Calc. Creatinine Clearance 163 mL/min (70-130); Carbon Dioxide 14 mmol/L (22-29); Chloride 106 mmol/L (98-107); Estimated GFR-MDRD 63; Glucose 297 mg/dL (70-105); Potassium 3.9 mmol/L (3.5-5.1); Sodium 133 mmol/L (136-145)
[2020-06-10] MEDS: 1/2 NS w/KCL 20 mEq 1,000 ML IV SCH ×5 (04:09→20:10)
[2020-06-10] MEDS: HumaLOG 300 UNITS/3 ML VIAL SC PRN ×5 (04:13→20:14)
[2020-06-10 05:14] LABS: #Lymphocytes 1.1 thou/uL (1.20-3.40); #Monocytes 0.1 thou/uL (0.11-0.59); #Neutrophils 6.4 thou/uL (1.40-6.50); %Basophils 0.1 % (0.0-1.0); %Eosinophils 0.1 % (0.0-10.0); %Lymphocytes 14.7 % (21.0-51.0); %Monocytes 1.7 % (0.0-10.0); %Neutrophils 83.4 % (42.0-75.0); Hemoglobin 13.8 g/dL (12.0-16.0); Mean Corpuscular HGB CONC 32.7 g/dL (32.0-36.0); Mean Corpuscular Hemoglobin 31.2 pg (27.0-31.0); Mean Corpuscular Volume 95.4 fL (78.0-98.0); Mean Platelet Volume 10.3 fL (7.4-10.4); Platelet Count 152 thou/uL (130-400); RBC Distribution Width 12.6 % (11.5-14.5); Red Blood Cell (RBC) Count 4.43 mill/uL (4.20-5.40); White Blood Cell (WBC) Count 7.7 thou/uL (4.8-10.8)
[2020-06-10 05:33] LABS: Anion Gap 17 mmol/L (10-20); BUN (Urea Nitrogen) 8 mg/dL (7.0-18.7); Calc. Creatinine Clearance 159 mL/min (70-130); Calcium 8.2 mg/dL (7.8-10.44); Carbon Dioxide 14 mmol/L (22-29); Chloride 106 mmol/L (98-107); Estimated GFR-MDRD 62; Glucose 331 mg/dL (70-105); Sodium 133 mmol/L (136-145)
[2020-06-10 05:43] LABS: Magnesium 1.9 mg/dL (1.6-2.6); Phosphorus 2.3 mg/dL (2.3-4.7)
[2020-06-10] MEDS ORDERED: Magnesium 2 GM/50 ML 2 GM in Premix Bag 1 BAG IVPB SCH (06:15)
[2020-06-10] MEDS ORDERED: Sodium Chloride 0.9% 1,000 ML IV SCH (08:45)
[2020-06-10] MEDS ORDERED: Insulin Glargine 25 UNITS in Pre-Filled Syringe SC SCH (09:00)
[2020-06-10 09:15] LABS: Anion Gap 17 mmol/L (10-20); BUN (Urea Nitrogen) 8 mg/dL (7.0-18.7); Calc. Creatinine Clearance 149 mL/min (70-130); Calcium 8.6 mg/dL (7.8-10.44); Carbon Dioxide 12 mmol/L (22-29); Chloride 106 mmol/L (98-107); Estimated GFR-MDRD 57; Glucose 373 mg/dL (70-105); Potassium 4.3 mmol/L (3.5-5.1); Sodium 131 mmol/L (136-145)
[2020-06-10] MEDS: glipiZIDE 10 MG TAB PO SCH ×2 (09:16→15:47)
[2020-06-10] MEDS: Enoxaparin Sodium 40 MG/0.4 ML SYRINGE SC SCH (09:17)
[2020-06-10] MEDS: Cholecalciferol 1,000 UNITS (25 MCG) TAB PO SCH (09:17)
[2020-06-10] MEDS: Gabapentin 300 MG CAP PO SCH ×3 (09:17→20:08)
--- NOTE | 2020-06-10 09:29 | PDOC.HOSPP ---
- Subjective Encounter Date: 06/10/20 Encounter Time: 10:30 Subjective: Patient seen and examined for MS flare. Strength improving. No new focal deficits. Headache improving. No new complaints. No overnight events - Objective Vital Signs & Weight: Vital Signs (12 hours) Temp Pulse Resp BP Pulse Ox 06/10/20 07:14 97.9 F 91 18 125/76 96 Weight Admit Weight 317 lb 6.4 oz Weight 317 lb 6.4 oz I&O: 06/09/20 06/10/20 06/11/20 06:59 06:59 06:59 Intake Total 4700 Balance 4700 Result Diagrams: 06/10/20 05:06 06/10/20 14:38 Additional Labs: Accuchecks 06/10/20 06/09/20 06/09/20 04:17 23:13 19:29 POC Glucose 285 H 305 H 418 H 06/09/20 06/09/20 16:15 12:27 POC Glucose 391 H 416 H Laboratory Tests 05/16/20 06/09/20 06/10/20 10:40 18:07 05:06 Hemoglobin A1c 9.0 H B-Hydroxybutyrate 4.99 H 3.28 H Radiology Reviewed by me: Yes (MRI brain - MS lesions) Hospitalist ROS - Review of Systems Respiratory: denies: cough, dry, shortness of breath, hemoptysis, SOB with excertion, pleuritic pain, sputum, wheezing, other Cardiovascular: denies: chest pain, palpitations, orthopnea, paroxysmal noc. dyspnea, edema, light headedness, other - Medication Medications: Active Medications Generic Name Dose Route Start Last Admin Trade Name Dillanq PRN Reason Stop Dose Admin Amitriptyline HCl 100 mg 06/09/20 21:00 06/09/20 20:29 Elavil PO 100 mg HS HAIR Administration Cholecalciferol 2,000 units 06/09/20 09:00 06/09/20 08:02 Vitamin D3 PO 2,000 units DAILY HAIR Administration Enoxaparin Sodium 40 mg 06/09/20 09:00 06/09/20 08:03 Lovenox SC 40 mg 0900 HAIR Administration Escitalopram Oxalate 10 mg 06/09/20 21:00 06/09/20 20:28 Lexapro PO 10 mg HS HAIR Administration Gabapentin 600 mg 06/09/20 09:00 06/09/20 20:27 Neurontin PO 600 mg TID HAIR Administration Methylprednisolone Sodium 266 mls @ 266 mls/hr 06/09/20 23:00 06/09/20 23:03 Succinate 1 gm/ Sodium IVPB 06/12/20 23:59 266 mls Chloride 2300 HAIR Administration Insulin Human Lispro 0 units 06/09/20 02:19 06/09/20 23:11 Humalog SC 4 unit .BEDTIME SLIDING SC PRN Administration Bedtime Correctional Scale Insulin Human Lispro 0 units 06/09/20 09:22 06/10/20 04:13 Humalog SC 9 unit .AGGRESSIVE SLIDING PRN Administration Aggressive Correctional Scale Metoprolol Succinate 50 mg 06/09/20 09:00 06/09/20 08:03 Toprol Xl PO 50 mg DAILY HAIR Administration Pantoprazole Sodium 40 mg 06/09/20 09:00 06/09/20 08:03 Protonix PO 40 mg DAILY HARI Administration Teriflunomide [ 0 each 06/09/20 21:00 06/09/20 21:41 Aubagio] PO 1 each HS HAIR Administration Venlafaxine HCl 37.5 mg 06/09/20 21:00 06/09/20 20:28 Effexor Xr PO 37.5 mg HS HAIR Administration - Exam General Appearance: NAD Neck: supple, no JVD Heart: RRR, no gallops, no rubs, normal peripheral pulses Respiratory: no wheezes, no rales, no ronchi, normal chest expansion Gastrointestinal: non-tender, normal bowel sounds, no guarding, no rigidity Extremities: no cyanosis, no clubbing, no edema Neurological: no new deficit Psychiatric: normal affect, A&O x 3 Hosp A/P - Plan DVT proph w/lovenox, DVT proph w/SCDs, GI proph MS flare Uncontrolled DM2/DKA due to steroids Morbid obesity 51 HTN Anxiety Chronic pain syndrome Chronic diarrhea Hyponatremia NIMESH on CPAP Swallow dysfunction - on modified diet Constipation PLAN: Cont IV Solumedrol 1g daily - day 2 Aggressive IV hydration Started on Lantus at high dose - 25 units in AM and 20 units PM Cont Aggressive sliding scale due to uncontrolled glucose Glucose check Q4h Repeat BMP later today Cont Toprol Cont Effexor Cont Gabapentin AM labs PT/OT Treat constipation
--- NOTE | 2020-06-10 12:55 | PDOC.HOSPP ---
- Subjective Encounter Date: 06/10/20 Subjective: NEUROLOGY PROGRESS NOTE Patient complaining of numbness in the right leg. Vision better - Objective Vital Signs & Weight: Vital Signs (12 hours) Temp Pulse Resp BP Pulse Ox 06/10/20 08:00 97.9 F 91 18 125/76 96 06/10/20 07:14 97.9 F 91 18 12576 96 Weight Admit Weight 317 lb 6.4 oz Weight 317 lb 6.4 oz I&O: 06/09/20 06/10/20 06/11/20 06:59 06:59 06:59 Intake Total 4700 Balance 4700 Result Diagrams: 06/10/20 05:06 06/10/20 08:33 Additional Labs: Accuchecks 06/10/20 06/10/20 06/10/20 11:14 09:25 04:17 POC Glucose 347 H 401 H 285 H 06/09/20 06/09/20 06/09/20 23:13 19:29 16:15 POC Glucose 305 H 418 H 391 H Radiology Reviewed by me: Yes EKG Reviewed by me: Yes Hospitalist ROS - Review of Systems Constitutional: denies: fever, chills, sweats, weakness, malaise, other Eyes: reports: vision change. denies: pain, conjunctivae inflammation, eyelid inflammation, redness, other ENT: denies: ear pain, ear discharge, nose pain, nose discharge, nose congestion , mouth pain, mouth swelling, throat pain, throat swelling, other Respiratory: denies: cough, dry, shortness of breath, hemoptysis, SOB with excertion, pleuritic pain, sputum, wheezing, other Cardiovascular: denies: chest pain, palpitations, orthopnea, paroxysmal noc. dyspnea, edema, light headedness, other Gastrointestinal: denies: nausea, vomiting, abdominal pain, diarrhea, constipation, melena, hematochezia, other Genitourinary: denies: dysuria, frequency, incontinence, hematuria, retention, other Musculoskeletal: denies: neck pain, shoulder pain, arm pain, back pain, hand pain, leg pain, foot pain, other Neurological: reports: numbness - Medication Medications: Active Medications Generic Name Dose Route Start Last Admin Trade Name Freq PRN Reason Stop Dose Admin Amitriptyline HCl 100 mg 06/09/20 21:00 06/09/20 20:29 Elavil PO 100 mg HS HAIR Administration Cholecalciferol 2,000 units 06/09/20 09:00 06/10/20 09:17 Vitamin D3 PO 2,000 units DAILY HAIR Administration Enoxaparin Sodium 40 mg 06/09/20 09:00 06/10/20 09:17 Lovenox SC 40 mg 0900 HAIR Administration Escitalopram Oxalate 10 mg 06/09/20 21:00 06/09/20 20:28 Lexapro PO 10 mg HS HAIR Administration Gabapentin 600 mg 06/09/20 09:00 06/10/20 09:17 Neurontin PO 600 mg TID HAIR Administration Glipizide 10 mg 06/10/20 07:30 06/10/20 09:16 Glucotrol PO 10 mg BID-AC HAIR Administration Methylprednisolone Sodium 266 mls @ 266 mls/hr 06/09/20 23:00 06/09/20 23:03 Succinate 1 gm/ Sodium IVPB 06/12/20 23:59 266 mls Chloride 2300 HAIR Administration Insulin Glargine 25 units/ 0.25 mls @ 0 mls/hr 06/10/20 09:00 06/10/20 09:18 Miscellaneous Medication SC 0.25 mls QAM HAIR Administration Potassium Chloride/Sodium Chloride 1,000 mls @ 200 mls/hr 06/10/20 09:20 11:58 1/2 Ns W/Kcl 20 Meq IV 1,000 mls .Q5H HAIR Administration Insulin Human Lispro 0 units 06/09/20 02:19 06/09/20 23:11 Humalog SC 4 unit .BEDTIME SLIDING SC PRN Administration Bedtime Correctional Scale Insulin Human Lispro 0 units 06/09/20 09:22 06/10/20 11:58 Humalog SC 11 unit .AGGRESSIVE SLIDING PRN Administration Aggressive Correctional Scale Metoprolol Succinate 50 mg 06/09/20 09:00 06/10/20 09:18 Toprol Xl PO 50 mg DAILY HAIR Administration Pantoprazole Sodium 40 mg 06/09/20 09:00 06/10/20 09:17 Protonix PO 40 mg DAILY HAIR Administration Teriflunomide [ 0 each 06/09/20 21:00 06/09/20 21:41 Aubagio] PO 1 each HS HAIR Administration Venlafaxine HCl 37.5 mg 06/09/20 21:00 06/09/20 20:28 Effexor Xr PO 37.5 mg HS HAIR Administration - Exam General Appearance: awake alert Eye: PERRL ENT: normocephalic atraumatic Neck: supple Heart: RRR Respiratory: CTAB Gastrointestinal: soft Extremities: no cyanosis Skin: normal turgor Neurological: no new deficit Musculoskeletal: no muscle wasting Psychiatric: normal affect, normal behavior, A&O x 3, oriented to person, oriented to place, oriented to time Hosp A/P (1) Multiple sclerosis exacerbation Code(s): G35 - MULTIPLE SCLEROSIS Status: Acute (2) Hyperglycemia, drug-induced Code(s): R73.9 - HYPERGLYCEMIA, UNSPECIFIED; T50.905A - ADVERSE EFFECT OF UNSP DRUG/MEDS/BIOL SUBST, INIT Status: Acute (3) Anxiety and depression Code(s): F41.9 - ANXIETY DISORDER, UNSPECIFIED; F32.9 - MAJOR DEPRESSIVE DISORDER, SINGLE EPISODE, UNSPECIFIED Status: Chronic (4) Chronic constipation Code(s): K59.09 - OTHER CONSTIPATION Status: Chronic (5) Morbid obesity with BMI of 50.0-59.9, adult Code(s): E66.01 - MORBID (SEVERE) OBESITY DUE TO EXCESS CALORIES; Z68.43 - BODY MASS INDEX (BMI) 50.0-59.9, ADULT Status: Chronic (6) NIMESH (obstructive sleep apnea) Code(s): G47.33 - OBSTRUCTIVE SLEEP APNEA (ADULT) (PEDIATRIC) Status: Chronic - Plan PT/OT, speech therapy 49 year old with MS exacerbation. Continue solumedrol 1 gram IV DAILY. Today is day 3. Regular insulin sliding scale for steroid induced hyperglycemia. PPI for steroid induced GERD EEG reviewed and was negative for seizure activity. MRI brain showed stable changes consistent with MS. Neurochecks every 4 hours. Continue home medications. PT/OT/Speech. Plan discussed with the patient and the primary attending Dr. Malagon.
[2020-06-10 15:10] LABS: Anion Gap 17 mmol/L (10-20); BUN (Urea Nitrogen) 11 mg/dL (7.0-18.7); Calc. Creatinine Clearance 143 mL/min (70-130); Calcium 8.5 mg/dL (7.8-10.44); Carbon Dioxide 14 mmol/L (22-29); Chloride 105 mmol/L (98-107); Estimated GFR-MDRD 54; Glucose 410 mg/dL (70-105); Potassium 3.8 mmol/L (3.5-5.1); Sodium 132 mmol/L (136-145)
[2020-06-10] MEDS ORDERED: Milk Of Magnesia 30 ML UDCUP PO PRN (18:02)
[2020-06-10] MEDS ORDERED: Mag-Al 1200 mg/1200 mg/30 ML UDCUP PO PRN (18:02)
[2020-06-10] MEDS ORDERED: Calcium Carbonate 500 MG ChewTAB PO PRN (18:02)
[2020-06-10] MEDS ORDERED: methylPREDNISolone Sod Succ 1 GM in Sodium Chloride 0.9% 250 ML 250 ML IVPB SCH (20:00)
[2020-06-10] MEDS: Polyethylene Glycol 3350 17 GM Packet PO SCH (20:06)
[2020-06-10] MEDS: Venlafaxine XR 37.5 MG CAP PO SCH (20:08)
[2020-06-10] MEDS: Senokot S 8.6-50 MG TAB PO SCH (20:09)
[2020-06-10] MEDS: Escitalopram Oxalate 10 mg Tablet PO SCH (20:09)
[2020-06-10] MEDS: Amitriptyline HCl 100 MG TAB PO SCH (20:09)
[2020-06-10] MEDS ORDERED: Insulin Glargine 20 UNITS in Pre-Filled Syringe 1 EACH SC SCH (21:00)
[2020-06-11] MEDS: 1/2 NS w/KCL 20 mEq 1,000 ML IV SCH ×5 (00:53→21:04)
[2020-06-11] MEDS: HumaLOG 300 UNITS/3 ML VIAL SC PRN ×6 (00:54→21:03)
[2020-06-11 06:59] LABS: #Lymphocytes 0.9 thou/uL (1.20-3.40); #Monocytes 0.1 thou/uL (0.11-0.59); #Neutrophils 6.2 thou/uL (1.40-6.50); %Basophils 0.2 % (0.0-1.0); %Eosinophils 0.2 % (0.0-10.0); %Lymphocytes 12.4 % (21.0-51.0); %Monocytes 1.6 % (0.0-10.0); %Neutrophils 85.5 % (42.0-75.0); Mean Corpuscular HGB CONC 34.3 g/dL (32.0-36.0); Mean Corpuscular Hemoglobin 32.4 pg (27.0-31.0); Mean Corpuscular Volume 94.4 fL (78.0-98.0); Mean Platelet Volume 10.7 fL (7.4-10.4); Platelet Count 136 thou/uL (130-400); RBC Distribution Width 12.7 % (11.5-14.5); Red Blood Cell (RBC) Count 4.32 mill/uL (4.20-5.40); White Blood Cell (WBC) Count 7.2 thou/uL (4.8-10.8)
[2020-06-11 07:21] LABS: Magnesium 2.1 mg/dL (1.6-2.6); Phosphorus 2.1 mg/dL (2.3-4.7)
--- NOTE | 2020-06-11 07:55 | PDOC.HOSPP ---
- Subjective Encounter Date: 06/11/20 Encounter Time: 10:30 Subjective: Patient seen and examined. Complained of right leg pain that waxes and wanes. Patient experienced pain overnight and in morning. - Objective Vital Signs & Weight: Vital Signs (12 hours) Temp Pulse Resp BP Pulse Ox 06/11/20 07:09 98.0 F 80 16 155/88 H 97 06/10/20 19:51 97.7 F 86 18 120/74 96 Weight Admit Weight 317 lb 6.4 oz Weight 317 lb 6.4 oz I&O: 06/10/20 06/11/20 06/12/20 06:59 06:59 06:59 Intake Total 4700 5600 Balance 4700 5600 Result Diagrams: 06/12/20 05:54 06/12/20 05:54 Additional Labs: Accuchecks 06/11/20 06/11/20 06/10/20 04:18 00:07 19:26 POC Glucose 286 H 325 H 373 H 06/10/20 06/10/20 06/10/20 15:47 11:14 09:25 POC Glucose 375 H 347 H 401 H Laboratory Tests 06/11/20 06:25 Phosphorus 2.1 L Hospitalist ROS - Review of Systems Constitutional: reports: other (headache). denies: fever, chills, sweats, weakness, malaise Respiratory: denies: cough, dry, shortness of breath, hemoptysis, SOB with excertion, pleuritic pain, sputum, wheezing, other Gastrointestinal: denies: nausea, vomiting, abdominal pain, diarrhea, constipation, melena, hematochezia, other - Medication Medications: Active Medications Generic Name Dose Route Start Last Admin Trade Name Freq PRN Reason Stop Dose Admin Amitriptyline HCl 100 mg 06/09/20 21:00 06/10/20 20:09 Elavil PO 100 mg HS HAIR Administration Cholecalciferol 2,000 units 06/09/20 09:00 06/10/20 09:17 Vitamin D3 PO 2,000 units DAILY HAIR Administration Enoxaparin Sodium 40 mg 06/09/20 09:00 06/10/20 09:17 Lovenox SC 40 mg 0900 HAIR Administration Escitalopram Oxalate 10 mg 06/09/20 21:00 06/10/20 20:09 Lexapro PO 10 mg HS HAIR Administration Gabapentin 600 mg 06/09/20 09:00 06/10/20 20:08 Neurontin PO 600 mg TID HAIR Administration Glipizide 10 mg 06/10/20 07:30 06/10/20 15:47 Glucotrol PO 10 mg BID-AC AHIR Administration Insulin Glargine 25 units/ 0.25 mls @ 0 mls/hr 06/10/20 09:00 06/10/20 09:18 Miscellaneous Medication SC 0.25 mls QAM HAIR Administration Potassium Chloride/Sodium Chloride 1,000 mls @ 200 mls/hr 06/10/20 09:20 05:25 1/2 Ns W/Kcl 20 Meq IV 1,000 mls .Q5H HAIR Administration Insulin Glargine 20 units/ 0.2 mls @ 0 mls/hr 06/10/20 21:00 06/10/20 20:13 Miscellaneous Medication SC 0.2 mls HS HAIR Administration Insulin Human Lispro 0 units 06/09/20 02:19 06/09/20 23:11 Humalog SC 4 unit .BEDTIME SLIDING SC PRN Administration Bedtime Correctional Scale Insulin Human Lispro 0 units 06/09/20 09:22 06/11/20 05:28 Humalog SC 9 unit .AGGRESSIVE SLIDING PRN Administration Aggressive Correctional Scale Metoprolol Succinate 50 mg 06/09/20 09:00 06/10/20 09:18 Toprol Xl PO 50 mg DAILY HAIR Administration Pantoprazole Sodium 40 mg 06/09/20 09:00 06/10/20 09:17 Protonix PO 40 mg DAILY HAIR Administration Teriflunomide [ 0 each 06/09/20 21:00 06/10/20 20:07 Aubagio] PO 1 each HS HAIR Administration Polyethylene Glycol 17 gm 06/10/20 21:00 06/10/20 20:06 Miralax PO 17 gm BID HAIR Administration Senna/Docusate Sodium 2 tab 06/10/20 21:00 06/10/20 20:09 Senokot S PO 2 tab BID HAIR Administration Venlafaxine HCl 37.5 mg 06/09/20 21:00 06/10/20 20:08 Effexor Xr PO 37.5 mg HS HAIR Administration - Exam General Appearance: awake alert Heart: RRR, no murmur, no gallops, no rubs, normal peripheral pulses Respiratory: CTAB, no wheezes, no rales, no ronchi, normal chest expansion Gastrointestinal: soft, non-tender, non-distended, normal bowel sounds, no palpable masses, no hepatomegaly, no splenomegaly, no bruit Psychiatric: normal behavior, A&O x 3 Hosp A/P - Plan MS flare Uncontrolled DM2/DKA due to steroids Morbid obesity BMI 51 HTN Anxiety Chronic pain syndrome Chronic diarrhea Hyponatremia NIMESH on CPAP Swallow dysfunction - on modified diet Constipation PLAN: Cont IV Solumedrol 1g daily - day 4 Aggressive IV hydration Increase Lantus to 35 units in AM and 25 units PM Cont Aggressive sliding scale - Add 5 units TID-WM in addition to sliding scale Insulin teaching Glucose check Q4h Replace Phosphorus Cont Toprol/Effexor/Gabapentin and other meds as above AM labs PT/OT Treat constipation Pt will prob require Insulin for 1-2 weeks post discharge Will need Glucose monitor and supplies at [place]
[2020-06-11] MEDS ORDERED: Insulin Glargine 30 UNITS in Pre-Filled Syringe 1 EACH SC SCH (09:00)
[2020-06-11] MEDS: Cholecalciferol 1,000 UNITS (25 MCG) TAB PO SCH (09:03)
[2020-06-11] MEDS: glipiZIDE 10 MG TAB PO SCH ×2 (09:03→15:00)
[2020-06-11] MEDS: Senokot S 8.6-50 MG TAB PO SCH ×2 (09:03→20:59)
[2020-06-11] MEDS: Gabapentin 300 MG CAP PO SCH ×3 (09:03→21:03)
[2020-06-11] MEDS: Enoxaparin Sodium 40 MG/0.4 ML SYRINGE SC SCH (09:04)
[2020-06-11] MEDS: Polyethylene Glycol 3350 17 GM Packet PO SCH ×2 (09:04→20:59)
[2020-06-11] MEDS: K-Phos Neutral 250 MG TAB PO SCH ×3 (09:05→17:32)
[2020-06-11 09:22] LABS: Anion Gap 16 mmol/L (10-20); BUN (Urea Nitrogen) 8 mg/dL (7.0-18.7); Calc. Creatinine Clearance 196 mL/min (70-130); Calcium 8.3 mg/dL (7.8-10.44); Carbon Dioxide 17 mmol/L (22-29); Chloride 104 mmol/L (98-107); Estimated GFR-MDRD 78; Glucose 310 mg/dL (70-105); Potassium 3.6 mmol/L (3.5-5.1); Sodium 133 mmol/L (136-145)
[2020-06-11] MEDS: HumaLOG 300 UNITS/3 ML VIAL SC SCH ×2 (11:50→17:32)
--- NOTE | 2020-06-11 13:24 | PDOC.HOSPP ---
- Subjective Encounter Date: 06/11/20 Subjective: NEUROLOGY PROGRESS NOTE Patient complaining of numbness in the right leg. Vision and speech improved. - Objective Vital Signs & Weight: Vital Signs (12 hours) Temp Pulse Resp BP Pulse Ox 06/11/20 07:09 98.0 F 80 16 155/88 H 97 Weight Admit Weight 317 lb 6.4 oz Weight 317 lb 6.4 oz I&O: 06/10/20 06/11/20 06/12/20 06:59 06:59 06:59 Intake Total 4700 5600 Balance 4700 5600 Result Diagrams: 06/11/20 06:25 06/11/20 06:25 Additional Labs: Accuchecks 06/11/20 06/11/20 06/11/20 11:32 09:13 04:18 POC Glucose 346 H 373 H 286 H 06/11/20 06/10/20 06/10/20 00:07 19:26 15:47 POC Glucose 325 H 373 H 375 H Radiology Reviewed by me: Yes EKG Reviewed by me: Yes Hospitalist ROS - Review of Systems Constitutional: denies: fever, chills, sweats, weakness, malaise, other Eyes: denies: pain, vision change, conjunctivae inflammation, eyelid inflammation, redness, other ENT: denies: ear pain, ear discharge, nose pain, nose discharge, nose congestion , mouth pain, mouth swelling, throat pain, throat swelling, other Respiratory: denies: cough, dry, shortness of breath, hemoptysis, SOB with excertion, pleuritic pain, sputum, wheezing, other Cardiovascular: denies: chest pain, palpitations, orthopnea, paroxysmal noc. dyspnea, edema, light headedness, other Gastrointestinal: denies: nausea, vomiting, abdominal pain, diarrhea, constipation, melena, hematochezia, other Genitourinary: denies: dysuria, frequency, incontinence, hematuria, retention, other Musculoskeletal: denies: neck pain, shoulder pain, arm pain, back pain, hand pain, leg pain, foot pain, other Neurological: reports: numbness. denies: weakness, incoordination, change in speech, confusion, seizures, other - Medication Medications: Active Medications Generic Name Dose Route Start Last Admin Trade Name Freq PRN Reason Stop Dose Admin Amitriptyline HCl 100 mg 06/09/20 21:00 06/10/20 20:09 Elavil PO 100 mg HS HAIR Administration Cholecalciferol 2,000 units 06/09/20 09:00 06/11/20 09:03 Vitamin D3 PO 2,000 units DAILY HAIR Administration Enoxaparin Sodium 40 mg 06/09/20 09:00 06/11/20 09:04 Lovenox SC 40 mg 0900 HAIR Administration Escitalopram Oxalate 10 mg 06/09/20 21:00 06/10/20 20:09 Lexapro PO 10 mg HS HAIR Administration Gabapentin 600 mg 06/09/20 09:00 06/11/20 09:03 Neurontin PO 600 mg TID HAIR Administration Glipizide 10 mg 06/10/20 07:30 06/11/20 09:03 Glucotrol PO 10 mg BID-AC HAIR Administration Potassium Chloride/Sodium Chloride 1,000 mls @ 200 mls/hr 06/10/20 09:20 09:06 1/2 Ns W/Kcl 20 Meq IV 1,000 mls .Q5H HAIR Administration Insulin Glargine 30 units/ 0.3 mls @ 0 mls/hr 06/11/20 09:00 06/11/20 09:04 Miscellaneous Medication SC 0.3 mls QAM HAIR Administration Insulin Human Lispro 0 units 06/09/20 02:19 06/09/20 23:11 Humalog SC 4 unit .BEDTIME SLIDING SC PRN Administration Bedtime Correctional Scale Insulin Human Lispro 0 units 06/09/20 09:22 06/11/20 11:51 Humalog SC 11 unit .AGGRESSIVE SLIDING PRN Administration Aggressive Correctional Scale Insulin Human Lispro 5 units 06/11/20 12:00 06/11/20 11:50 Humalog SC 5 unit 1200 HAIR Administration Metoprolol Succinate 50 mg 06/09/20 09:00 06/11/20 09:04 Toprol Xl PO 50 mg DAILY HAIR Administration Pantoprazole Sodium 40 mg 06/09/20 09:00 06/11/20 09:04 Protonix PO 40 mg DAILY HAIR Administration Teriflunomide [ 0 each 06/09/20 21:00 06/10/20 20:07 Aubagio] PO 1 each HS HAIR Administration Phosphorus 250 mg 06/11/20 08:00 06/11/20 11:50 Kphos Neutral PO 250 mg TID-WM HAIR Administration Polyethylene Glycol 17 gm 06/10/20 21:00 06/11/20 09:04 Miralax PO 17 gm BID HAIR Administration Senna/Docusate Sodium 2 tab 06/10/20 21:00 06/11/20 09:03 Senokot S PO 2 tab BID HAIR Administration Venlafaxine HCl 37.5 mg 06/09/20 21:00 06/10/20 20:08 Effexor Xr PO 37.5 mg HS HAIR Administration - Exam General Appearance: awake alert Eye: PERRL ENT: normocephalic atraumatic Neck: supple Heart: RRR Respiratory: CTAB Gastrointestinal: soft Extremities: no cyanosis Skin: normal turgor Neurological: no new deficit Musculoskeletal: normal tone, no muscle wasting Psychiatric: normal affect, normal behavior, A&O x 3, oriented to person, oriented to place, oriented to time Hosp A/P (1) Multiple sclerosis exacerbation Code(s): G35 - MULTIPLE SCLEROSIS Status: Acute (2) Hyperglycemia, drug-induced Code(s): R73.9 - HYPERGLYCEMIA, UNSPECIFIED; T50.905A - ADVERSE EFFECT OF UNSP DRUG/MEDS/BIOL SUBST, INIT Status: Acute (3) Anxiety and depression Code(s): F41.9 - ANXIETY DISORDER, UNSPECIFIED; F32.9 - MAJOR DEPRESSIVE DISORDER, SINGLE EPISODE, UNSPECIFIED Status: Chronic (4) Chronic constipation Code(s): K59.09 - OTHER CONSTIPATION Status: Chronic (5) Morbid obesity with BMI of 50.0-59.9, adult Code(s): E66.01 - MORBID (SEVERE) OBESITY DUE TO EXCESS CALORIES; Z68.43 - BODY MASS INDEX (BMI) 50.0-59.9, ADULT Status: Chronic (6) NIMESH (obstructive sleep apnea) Code(s): G47.33 - OBSTRUCTIVE SLEEP APNEA (ADULT) (PEDIATRIC) Status: Chronic - Plan PT/OT, speech therapy, DVT proph w/SCDs 49 year old with MS exacerbation. Patient still complaining of numbness in the right leg. Vision and speech improved. Continue solumedrol 1 gram IV DAILY. Today is day 4. Regular insulin sliding scale for steroid induced hyperglycemia. PPI for steroid induced GERD EEG reviewed and was negative for seizure activity. MRI brain showed stable changes consistent with MS. Neurochecks every 4 hours. Continue home medications. PT/OT/Speech. Continue medical management per primary team. Plan discussed with the patient
[2020-06-11] MEDS ORDERED: methylPREDNISolone Sod Succ 1 GM in Sodium Chloride 0.9% 250 ML 250 ML IVPB SCH (17:00)
[2020-06-11] MEDS: Amitriptyline HCl 100 MG TAB PO SCH (20:56)
[2020-06-11] MEDS: Escitalopram Oxalate 10 mg Tablet PO SCH (20:57)
[2020-06-11] MEDS: Venlafaxine XR 37.5 MG CAP PO SCH (20:57)
[2020-06-11] MEDS ORDERED: Insulin Glargine 25 UNITS in Pre-Filled Syringe 1 EACH SC SCH (21:00)
[2020-06-12] MEDS: HumaLOG 300 UNITS/3 ML VIAL SC PRN ×6 (00:16→20:15)
[2020-06-12] MEDS: 1/2 NS w/KCL 20 mEq 1,000 ML IV SCH ×5 (00:19→20:16)
[2020-06-12] MEDS: tiZANidine HCl 4 MG TAB PO PRN (05:11)
[2020-06-12] MEDS: glipiZIDE 10 MG TAB PO SCH ×2 (06:35→17:47)
[2020-06-12 06:39] LABS: Band 2 % (5-11); Hemoglobin 14.1 g/dL (12.0-16.0); Lymphocytes 14 % (21-51); MDiff Complete? YES; Mean Corpuscular HGB CONC 34.6 g/dL (32.0-36.0); Mean Corpuscular Hemoglobin 32.6 pg (27.0-31.0); Mean Corpuscular Volume 94.2 fL (78.0-98.0); Mean Platelet Volume 10.4 fL (7.4-10.4); Monocytes 3 % (0-10); Neutrophil 81 % (42-75); Platelet Count 126 thou/uL (130-400); Platelet Morphology Comment Appears Adequate; RBC Distribution Width 12.8 % (11.5-14.5); Red Blood Cell (RBC) Count 4.32 mill/uL (4.20-5.40); White Blood Cell (WBC) Count 5.1 thou/uL (4.8-10.8)
[2020-06-12 06:53] LABS: Phosphorus 2.5 mg/dL (2.3-4.7)
[2020-06-12 06:59] LABS: Anion Gap 13 mmol/L (10-20); BUN (Urea Nitrogen) 9 mg/dL (7.0-18.7); Calc. Creatinine Clearance 207 mL/min (70-130); Calcium 8.2 mg/dL (7.8-10.44); Carbon Dioxide 23 mmol/L (22-29); Chloride 104 mmol/L (98-107); Estimated GFR-MDRD 83; Glucose 304 mg/dL (70-105); Potassium 3.5 mmol/L (3.5-5.1); Sodium 136 mmol/L (136-145)
[2020-06-12] MEDS ORDERED: Potassium Chloride 20 MEQ TAB PO SCH (07:45)
[2020-06-12] MEDS ORDERED: Electrolyte Replacement Protocol FS PRN (07:45)
[2020-06-12] MEDS ORDERED: Magnesium 2 GM/50 ML 2 GM in Premix Bag 1 BAG IVPB SCH (07:45)
[2020-06-12] MEDS: Polyethylene Glycol 3350 17 GM Packet PO SCH ×2 (09:05→20:14)
[2020-06-12] MEDS: Enoxaparin Sodium 40 MG/0.4 ML SYRINGE SC SCH (09:05)
[2020-06-12] MEDS: Senokot S 8.6-50 MG TAB PO SCH ×2 (09:05→20:11)
[2020-06-12] MEDS: Cholecalciferol 1,000 UNITS (25 MCG) TAB PO SCH (09:05)
[2020-06-12] MEDS: Gabapentin 300 MG CAP PO SCH ×3 (09:06→20:11)
[2020-06-12] MEDS: Insulin Glargine 40 UNITS in Pre-Filled Syringe 1 EACH SC SCH (09:06)
[2020-06-12] MEDS: HumaLOG 300 UNITS/3 ML VIAL SC SCH ×3 (09:07→17:47)
[2020-06-12] MEDS: K-Phos Neutral 250 MG TAB PO SCH ×3 (09:07→17:47)
--- NOTE | 2020-06-12 10:55 | PDOC.HOSPP ---
- Subjective Encounter Date: 06/12/20 Encounter Time: 15:00 Subjective: Patient seen and examined for MS flare/DKA. Overall strength improving. No new focal deficits. No new complaints. No overnight events - Objective Vital Signs & Weight: Vital Signs (12 hours) Temp Pulse Resp BP Pulse Ox 06/12/20 07:00 97.5 F L 71 18 148/84 H 96 Weight Admit Weight 317 lb 6.4 oz Weight 317 lb 6.4 oz I&O: 06/11/20 06/12/20 06/13/20 06:59 06:59 06:59 Intake Total 5600 2760 Balance 5600 2760 Result Diagrams: 06/12/20 05:54 06/13/20 05:16 Additional Labs: Accuchecks 06/12/20 06/12/20 06/11/20 04:15 00:02 20:48 POC Glucose 270 H 303 H 324 H 06/11/20 06/11/20 16:05 11:32 POC Glucose 323 H 346 H Hospitalist ROS - Review of Systems Respiratory: denies: cough, dry, shortness of breath, hemoptysis, SOB with excertion, pleuritic pain, sputum, wheezing, other Cardiovascular: denies: chest pain, palpitations, orthopnea, paroxysmal noc. dyspnea, edema, light headedness, other - Medication Medications: Active Medications Generic Name Dose Route Start Last Admin Trade Name Freq PRN Reason Stop Dose Admin Amitriptyline HCl 100 mg 06/09/20 21:00 06/11/20 20:56 Elavil PO 100 mg HS HAIR Administration Cholecalciferol 2,000 units 06/09/20 09:00 06/12/20 09:05 Vitamin D3 PO 2,000 units DAILY HAIR Administration Enoxaparin Sodium 40 mg 06/09/20 09:00 06/12/20 09:05 Lovenox SC 40 mg 0900 HAIR Administration Escitalopram Oxalate 10 mg 06/09/20 21:00 06/11/20 20:57 Lexapro PO 10 mg HS HAIR Administration Gabapentin 600 mg 06/09/20 09:00 06/12/20 09:06 Neurontin PO 600 mg TID HAIR Administration Glipizide 10 mg 06/10/20 07:30 06/12/20 06:35 Glucotrol PO 10 mg BID-AC HAIR Administration Potassium Chloride/Sodium Chloride 1,000 mls @ 200 mls/hr 06/10/20 09:20 04:25 1/2 Ns W/Kcl 20 Meq IV 1,000 mls .Q5H HAIR Administration Insulin Glargine 40 units/ 0.4 mls @ 0 mls/hr 06/12/20 09:00 06/12/20 09:06 Miscellaneous Medication SC 0.4 mls QAM HAIR Administration Insulin Human Lispro 0 units 06/09/20 02:19 06/12/20 04:24 Humalog SC 3 unit .BEDTIME SLIDING SC PRN Administration Bedtime Correctional Scale Insulin Human Lispro 0 units 06/09/20 09:22 06/12/20 09:08 Humalog SC 11 unit .AGGRESSIVE SLIDING PRN Administration Aggressive Correctional Scale Insulin Human Lispro 5 units 06/12/20 08:00 06/12/20 09:07 Humalog SC 5 unit 0800 HAIR Administration Insulin Human Lispro 5 units 06/11/20 12:00 06/11/20 11:50 Humalog SC 5 unit 1200 HAIR Administration Insulin Human Lispro 5 units 06/11/20 17:00 06/11/20 17:32 Humalog SC 5 unit 1700 HAIR Administration Metoprolol Succinate 50 mg 06/09/20 09:00 06/12/20 09:06 Toprol Xl PO 50 mg DAILY HAIR Administration Pantoprazole Sodium 40 mg 06/09/20 09:00 06/12/20 09:06 Protonix PO 40 mg DAILY HAIR Administration Teriflunomide [ 0 each 06/09/20 21:00 06/11/20 21:04 Aubagio] PO 1 each HS HAIR Administration Phosphorus 250 mg 06/11/20 08:00 06/12/20 09:07 Kphos Neutral PO 250 mg TID-WM HAIR Administration Polyethylene Glycol 17 gm 06/10/20 21:00 06/12/20 09:05 Miralax PO Not Given BID HAIR Senna/Docusate Sodium 2 tab 06/10/20 21:00 06/12/20 09:05 Senokot S PO Not Given BID HAIR Tizanidine HCl 4 mg 06/09/20 02:17 06/12/20 05:11 Zanaflex PO 4 mg BID PRN Administration Muscle Spasm Venlafaxine HCl 37.5 mg 06/09/20 21:00 06/11/20 20:57 Effexor Xr PO 37.5 mg HS HAIR Administration - Exam General Appearance: NAD Neck: supple, no JVD Heart: RRR, no gallops Respiratory: no wheezes, no ronchi Gastrointestinal: non-tender, normal bowel sounds Extremities: no cyanosis Hosp A/P - Plan DVT proph w/lovenox, DVT proph w/SCDs MS flare Uncontrolled DM2/DKA due to steroids - improving Morbid obesity BMI 51 HTN Anxiety Chronic pain syndrome Chronic diarrhea Hyponatremia NIMESH on CPAP Swallow dysfunction - on modified diet Constipation PLAN: 06/12 Change Lantus to 40 units BID Cont IV steroids - Last day Not stable for dc due to uncontrolled DM2 Reduce IVF to 150 ml/hr Replace Potassium Cont other meds as above AM labs [facility] vs Outpt PT DC in AM if stable 06/11 Cont IV Solumedrol 1g daily - day 4 Aggressive IV hydration Increase Lantus to 35 units in AM and 25 units PM Cont Aggressive sliding scale - Add 5 units TID-WM in addition to sliding scale Insulin teaching Glucose check Q4h Replace Phosphorus Cont Toprol/Effexor/Gabapentin and other meds as above AM labs PT/OT Treat constipation Pt will prob require Insulin for 1-2 weeks post discharge Will need Glucose monitor and supplies at [place]
[2020-06-12] MEDS ORDERED: methylPREDNISolone Sod Succ 1 GM in Sodium Chloride 0.9% 250 ML 250 ML IVPB SCH (14:00)
[2020-06-12] MEDS: Amitriptyline HCl 100 MG TAB PO SCH (20:11)
[2020-06-12] MEDS: Venlafaxine XR 37.5 MG CAP PO SCH (20:12)
[2020-06-12] MEDS: Escitalopram Oxalate 10 mg Tablet PO SCH (20:12)
[2020-06-12] MEDS ORDERED: Insulin Glargine 40 UNITS in Pre-Filled Syringe 1 EACH SC SCH (21:00)
[2020-06-13] MEDS: 1/2 NS w/KCL 20 mEq 1,000 ML IV SCH (04:00)
[2020-06-13] MEDS: HumaLOG 300 UNITS/3 ML VIAL SC PRN ×5 (05:12→21:18)
[2020-06-13 05:46] LABS: Phosphorus 2.6 mg/dL (2.3-4.7)
[2020-06-13 05:49] LABS: Anion Gap 13 mmol/L (10-20); BUN (Urea Nitrogen) 9 mg/dL (7.0-18.7); Calc. Creatinine Clearance 225 mL/min (70-130); Calcium 7.8 mg/dL (7.8-10.44); Carbon Dioxide 21 mmol/L (22-29); Chloride 104 mmol/L (98-107); Estimated GFR-MDRD Greater than 90; Glucose 279 mg/dL (70-105); Magnesium 2.1 mg/dL (1.6-2.6); Potassium 3.8 mmol/L (3.5-5.1); Sodium 134 mmol/L (136-145)
[2020-06-13] MEDS: Gabapentin 300 MG CAP PO SCH ×3 (08:51→21:15)
[2020-06-13] MEDS: K-Phos Neutral 250 MG TAB PO SCH ×3 (08:51→17:19)
[2020-06-13] MEDS: Cholecalciferol 1,000 UNITS (25 MCG) TAB PO SCH (08:51)
[2020-06-13] MEDS: glipiZIDE 10 MG TAB PO SCH ×2 (08:51→17:17)
[2020-06-13] MEDS: Senokot S 8.6-50 MG TAB PO SCH ×2 (08:55→21:14)
[2020-06-13] MEDS: Insulin Glargine 40 UNITS in Pre-Filled Syringe 1 EACH SC SCH (08:56)
[2020-06-13] MEDS: HumaLOG 300 UNITS/3 ML VIAL SC SCH ×3 (08:57→17:19)
[2020-06-13] MEDS: Enoxaparin Sodium 40 MG/0.4 ML SYRINGE SC SCH (08:59)
[2020-06-13] MEDS: Polyethylene Glycol 3350 17 GM Packet PO SCH ×2 (08:59→21:14)
--- NOTE | 2020-06-13 10:42 | PDOC.HOSPP ---
- Subjective Encounter Date: 06/13/20 Encounter Time: 13:00 Subjective: Patient was seen and examined for MS flare/DKA. In terms of overnight events, patient reports double vision and balance issues. Patient reports no pain. - Objective Vital Signs & Weight: Vital Signs (12 hours) Temp Pulse Resp BP Pulse Ox 06/13/20 07:04 97.9 F 64 18 133/83 94 L Weight Admit Weight 317 lb 6.4 oz Weight 317 lb 6.4 oz I&O: 06/12/20 06/13/20 06/14/20 06:59 06:59 06:59 Intake Total 2760 Balance 2760 Result Diagrams: 06/12/20 05:54 06/13/20 05:16 Additional Labs: Accuchecks 06/13/20 06/13/20 06/13/20 08:55 04:05 00:13 POC Glucose 327 H 270 H 274 H 06/12/20 06/12/20 06/12/20 19:14 16:50 11:27 POC Glucose 393 H 314 H 282 H Hospitalist ROS - Review of Systems Constitutional: denies: fever, chills, sweats, weakness, malaise, other Eyes: reports: vision change (improving). denies: pain, conjunctivae inflammation, eyelid inflammation, redness, other Respiratory: denies: cough, dry, shortness of breath, hemoptysis, SOB with excertion, pleuritic pain, sputum, wheezing, other Cardiovascular: reports: edema ([place]). denies: chest pain, palpitations, orthopnea, paroxysmal noc. dyspnea, light headedness, other - Medication Medications: Active Medications Generic Name Dose Route Start Last Admin Trade Name Freq PRN Reason Stop Dose Admin Amitriptyline HCl 100 mg 06/09/20 21:00 06/12/20 20:11 Elavil PO 100 mg HS HAIR Administration Cholecalciferol 2,000 units 06/09/20 09:00 06/13/20 08:51 Vitamin D3 PO 2,000 units DAILY HAIR Administration Enoxaparin Sodium 40 mg 06/09/20 09:00 06/13/20 08:59 Lovenox SC 40 mg 0900 HAIR Administration Escitalopram Oxalate 10 mg 06/09/20 21:00 06/12/20 20:12 Lexapro PO 10 mg HS HAIR Administration Gabapentin 600 mg 06/09/20 09:00 06/13/20 08:51 Neurontin PO 600 mg TID HAIR Administration Glipizide 10 mg 06/10/20 07:30 06/13/20 08:51 Glucotrol PO 10 mg BID-AC HAIR Administration Insulin Glargine 40 units/ 0.4 mls @ 0 mls/hr 06/12/20 09:00 06/13/20 08:56 Miscellaneous Medication SC 0.4 mls QAM HAIR Administration Insulin Glargine 40 units/ 0.4 mls @ 0 mls/hr 06/12/20 21:00 06/12/20 20:13 Miscellaneous Medication SC 0.4 mls HS HAIR Administration Potassium Chloride/Sodium Chloride 1,000 mls @ 150 mls/hr 06/12/20 10:56 04:00 1/2 Ns W/Kcl 20 Meq IV 1,000 mls .[id number] HAIR Administration Insulin Human Lispro 0 units 06/09/20 02:19 06/12/20 20:15 Humalog SC 5 unit .BEDTIME SLIDING SC PRN Administration Bedtime Correctional Scale Insulin Human Lispro 0 units 06/09/20 09:22 06/13/20 08:58 Humalog SC 11 unit .AGGRESSIVE SLIDING PRN Administration Aggressive Correctional Scale Insulin Human Lispro 5 units 06/12/20 08:00 06/13/20 08:57 Humalog SC 5 unit 0800 HAIR Administration Insulin Human Lispro 5 units 06/11/20 12:00 06/12/20 11:25 Humalog SC 5 unit 1200 HAIR Administration Insulin Human Lispro 5 units 06/11/20 17:00 06/12/20 17:47 Humalog SC 5 unit 1700 HAIR Administration Metoprolol Succinate 50 mg 06/09/20 09:00 06/13/20 08:51 Toprol Xl PO 50 mg DAILY HAIR Administration Pantoprazole Sodium 40 mg 06/09/20 09:00 06/13/20 08:51 Protonix PO 40 mg DAILY HAIR Administration Teriflunomide [ 0 each 06/09/20 21:00 06/12/20 20:16 Aubagio] PO 1 each HS HAIR Administration Phosphorus 250 mg 06/11/20 08:00 06/13/20 08:51 Kphos Neutral PO 250 mg TID-WM HAIR Administration Polyethylene Glycol 17 gm 06/10/20 21:00 06/13/20 08:59 Miralax PO Not Given BID HAIR Potassium Chloride 20 meq 06/12/20 12:00 06/13/20 08:55 Klor-Con PO 06/14/20 12:01 20 meq TID-WM HAIR Administration Senna/Docusate Sodium 2 tab 06/10/20 21:00 06/13/20 08:55 Senokot S PO 2 tab BID HAIR Administration Tizanidine HCl 4 mg 06/09/20 02:17 06/12/20 05:11 Zanaflex PO 4 mg BID PRN Administration Muscle Spasm Venlafaxine HCl 37.5 mg 06/09/20 21:00 06/12/20 20:12 Effexor Xr PO 37.5 mg HS HAIR Administration - Exam General Appearance: NAD Eye: PERRL ENT: normocephalic atraumatic Heart: RRR, no murmur, no gallops, no rubs, normal peripheral pulses Respiratory: CTAB, no wheezes, no rales, no ronchi, normal chest expansion, no tachypnea, normal percussion Gastrointestinal: soft, non-tender, non-distended, normal bowel sounds, no palpable masses, no hepatomegaly, no splenomegaly, no bruit, no guarding, no rigidity Extremities: 2+ LE edema (2+ UE edema bilaterally) Psychiatric: normal affect, A&O x 3 Hosp A/P - Plan PT/OT, DVT proph w/lovenox MS flare Uncontrolled DM2/DKA due to steroids - Pt is recently diagnosed with DM - was on no DM meds on admission Morbid obesity BMI 51 HTN Anxiety Chronic pain syndrome Chronic diarrhea Hyponatremia NIMESH on CPAP Swallow dysfunction - on modified diet Constipation PLAN: 06/13 Extra 20 units Lantus today Increase Lantus to 50 units BID Completed IV steroids for MS flare Still has uncontrolled hyperglycemia DC IVF Outpt PT DC later today or in AM if sugars controlled 06/12 Change Lantus to 40 units BID Cont IV steroids - Last day Not stable for dc due to uncontrolled DM2 Reduce IVF to 150 ml/hr Replace Potassium Cont other meds as above AM labs [facility] vs Outpt PT DC in AM if stable 06/11 Cont IV Solumedrol 1g daily - day 4 Aggressive IV hydration Increase Lantus to 35 units in AM and 25 units PM Cont Aggressive sliding scale - Add 5 units TID-WM in addition to sliding scale Insulin teaching Glucose check Q4h Replace Phosphorus Cont Toprol/Effexor/Gabapentin and other meds as above AM labs PT/OT Treat constipation Pt will prob require Insulin for 1-2 weeks post discharge Will need Glucose monitor and supplies at [place]
[2020-06-13] MEDS ORDERED: Insulin Glargine 20 UNITS in Pre-Filled Syringe 1 EACH SC SCH (10:45)
--- NOTE | 2020-06-13 12:47 | PDOC.HOSPP ---
- Subjective Encounter Date: 06/13/20 Subjective: NEUROLOGY PROGRESS NOTE Patient symptoms including Vision and speech improved. - Objective Vital Signs & Weight: Vital Signs (12 hours) Temp Pulse Resp BP BP BP Pulse Ox 06/13/20 10:39 147/81 H 152/67 H 06/13/20 08:00 94 L 06/13/20 07:04 97.9 F 64 18 133/83 94 L Weight Admit Weight 317 lb 6.4 oz Weight 317 lb 6.4 oz I&O: 06/12/20 06/13/20 06/14/20 06:59 06:59 06:59 Intake Total 2760 Balance 2760 Result Diagrams: 06/12/20 05:54 06/13/20 05:16 Additional Labs: Accuchecks 06/13/20 06/13/20 06/13/20 12:02 08:55 04:05 POC Glucose 250 H 327 H 270 H 06/13/20 06/12/20 06/12/20 00:13 19:14 16:50 POC Glucose 274 H 393 H 314 H Radiology Reviewed by me: Yes EKG Reviewed by me: Yes Hospitalist ROS - Review of Systems Constitutional: denies: fever, chills, sweats, weakness, malaise, other Eyes: denies: pain, vision change, conjunctivae inflammation, eyelid inflammation, redness, other ENT: denies: ear pain, ear discharge, nose pain, nose discharge, nose congestion , mouth pain, mouth swelling, throat pain, throat swelling, other Respiratory: denies: cough, dry, shortness of breath, hemoptysis, SOB with excertion, pleuritic pain, sputum, wheezing, other Cardiovascular: denies: chest pain, palpitations, orthopnea, paroxysmal noc. dyspnea, edema, light headedness, other Gastrointestinal: denies: nausea, vomiting, abdominal pain, diarrhea, constipation, melena, hematochezia, other Genitourinary: denies: dysuria, frequency, incontinence, hematuria, retention, other Skin: denies: rash, lesions, robert, bruising, other - Medication Medications: Active Medications Generic Name Dose Route Start Last Admin Trade Name Freq PRN Reason Stop Dose Admin Amitriptyline HCl 100 mg 06/09/20 21:00 06/12/20 20:11 Elavil PO 100 mg HS HAIR Administration Cholecalciferol 2,000 units 06/09/20 09:00 06/13/20 08:51 Vitamin D3 PO 2,000 units DAILY HAIR Administration Enoxaparin Sodium 40 mg 06/09/20 09:00 06/13/20 08:59 Lovenox SC 40 mg 0900 HAIR Administration Escitalopram Oxalate 10 mg 06/09/20 21:00 06/12/20 20:12 Lexapro PO 10 mg HS HAIR Administration Gabapentin 600 mg 06/09/20 09:00 06/13/20 08:51 Neurontin PO 600 mg TID HAIR Administration Glipizide 10 mg 06/10/20 07:30 06/13/20 08:51 Glucotrol PO 10 mg BID-AC HAIR Administration Insulin Glargine 20 units/ 0.2 mls @ 0 mls/hr 06/13/20 10:45 06/13/20 12:32 Miscellaneous Medication SC 06/13/20 14:00 0.2 mls NOW HAIR Administration Insulin Human Lispro 0 units 06/09/20 02:19 06/12/20 20:15 Humalog SC 5 unit .BEDTIME SLIDING SC PRN Administration Bedtime Correctional Scale Insulin Human Lispro 0 units 06/09/20 09:22 06/13/20 12:31 Humalog SC 6 unit .AGGRESSIVE SLIDING PRN Administration Aggressive Correctional Scale Insulin Human Lispro 5 units 06/12/20 08:00 06/13/20 08:57 Humalog SC 5 unit 0800 HAIR Administration Insulin Human Lispro 5 units 06/11/20 12:00 06/13/20 12:30 Humalog SC 5 unit 1200 HAIR Administration Insulin Human Lispro 5 units 06/11/20 17:00 06/12/20 17:47 Humalog SC 5 unit 1700 HAIR Administration Metoprolol Succinate 50 mg 06/09/20 09:00 06/13/20 08:51 Toprol Xl PO 50 mg DAILY HAIR Administration Pantoprazole Sodium 40 mg 06/09/20 09:00 06/13/20 08:51 Protonix PO 40 mg DAILY HAIR Administration Teriflunomide [ 0 each 06/09/20 21:00 06/12/20 20:16 Aubagio] PO 1 each HS HAIR Administration Phosphorus 250 mg 06/11/20 08:00 06/13/20 12:41 Kphos Neutral PO 250 mg TID-WM HAIR Administration Polyethylene Glycol 17 gm 06/10/20 21:00 06/13/20 08:59 Miralax PO Not Given BID HAIR Potassium Chloride 20 meq 06/12/20 12:00 06/13/20 12:41 Klor-Con PO 06/14/20 12:01 20 meq TID-WM HAIR Administration Senna/Docusate Sodium 2 tab 06/10/20 21:00 06/13/20 08:55 Senokot S PO 2 tab BID HAIR Administration Tizanidine HCl 4 mg 06/09/20 02:17 06/12/20 05:11 Zanaflex PO 4 mg BID PRN Administration Muscle Spasm Venlafaxine HCl 37.5 mg 06/09/20 21:00 06/12/20 20:12 Effexor Xr PO 37.5 mg HS HAIR Administration - Exam General Appearance: awake alert Eye: PERRL ENT: normocephalic atraumatic Neck: supple Heart: RRR Respiratory: CTAB Gastrointestinal: soft Extremities: no cyanosis Skin: normal turgor Neurological: cranial nerve grossly intact, normal sensation to touch, no weakness, no focal deficits Musculoskeletal: normal tone, normal strength, no muscle wasting Psychiatric: normal affect, normal behavior, A&O x 3, oriented to person, oriented to place, oriented to time Hosp A/P (1) Multiple sclerosis exacerbation Code(s): G35 - MULTIPLE SCLEROSIS Status: Acute (2) Hyperglycemia, drug-induced Code(s): R73.9 - HYPERGLYCEMIA, UNSPECIFIED; T50.905A - ADVERSE EFFECT OF UNSP DRUG/MEDS/BIOL SUBST, INIT Status: Acute (3) Anxiety and depression Code(s): F41.9 - ANXIETY DISORDER, UNSPECIFIED; F32.9 - MAJOR DEPRESSIVE DISORDER, SINGLE EPISODE, UNSPECIFIED Status: Chronic (4) Chronic constipation Code(s): K59.09 - OTHER CONSTIPATION Status: Chronic (5) Morbid obesity with BMI of 50.0-59.9, adult Code(s): E66.01 - MORBID (SEVERE) OBESITY DUE TO EXCESS CALORIES; Z68.43 - BODY MASS INDEX (BMI) 50.0-59.9, ADULT Status: Chronic (6) NIMESH (obstructive sleep apnea) Code(s): G47.33 - OBSTRUCTIVE SLEEP APNEA (ADULT) (PEDIATRIC) Status: Chronic - Plan 49 year old with MS exacerbation. Vision and speech improved. Completed solumedrol 1 gram IV DAILY five day course. EEG reviewed and was negative for seizure activity. MRI brain showed stable changes consistent with MS. Patient clinically stable. Continue home medications and follow up with Dr. Hawkins in 4-6 weeks. Plan discussed with the patient.
[2020-06-13] MEDS ORDERED: HumaLOG 300 UNITS/3 ML VIAL SC PRN (19:24)
[2020-06-13] MEDS ORDERED: Insulin Glargine 40 UNITS in Pre-Filled Syringe SC SCH (21:00)
[2020-06-13] MEDS ORDERED: Insulin Glargine 50 UNITS in Pre-Filled Syringe 1 EACH SC SCH (21:00)
[2020-06-13] MEDS: Venlafaxine XR 37.5 MG CAP PO SCH (21:15)
[2020-06-13] MEDS: Escitalopram Oxalate 10 mg Tablet PO SCH (21:18)
[2020-06-13] MEDS: Amitriptyline HCl 100 MG TAB PO SCH (21:18)
[2020-06-14] MEDS ORDERED: metFORMIN 500 MG TAB PO SCH (08:00)
[2020-06-14] MEDS ORDERED: Insulin Glargine 50 UNITS in Pre-Filled Syringe 1 EACH SC SCH (09:00)
[2020-06-14] MEDS: Enoxaparin Sodium 40 MG/0.4 ML SYRINGE SC SCH (09:03)
[2020-06-14] MEDS: Senokot S 8.6-50 MG TAB PO SCH (09:03)
[2020-06-14] MEDS: Polyethylene Glycol 3350 17 GM Packet PO SCH (09:03)
[2020-06-14] MEDS: Cholecalciferol 1,000 UNITS (25 MCG) TAB PO SCH (09:04)
[2020-06-14] MEDS: glipiZIDE 10 MG TAB PO SCH (09:04)
[2020-06-14] MEDS: K-Phos Neutral 250 MG TAB PO SCH ×2 (09:05→12:52)
[2020-06-14] MEDS: Gabapentin 300 MG CAP PO SCH (09:05)
[2020-06-14 10:58] VITALS: BP 118/73; TEMP 97.7
[2020-06-14] MEDS: tiZANidine HCl 4 MG TAB PO PRN (12:54)
--- NOTE | 2020-06-15 07:05 | DIS ---
DATE OF ADMISSION: 06/08/2020 DATE OF DISCHARGE: 06/14/2020 DISCHARGE DISPOSITION: Home. FOLLOWUP: 1. Dr. Carmela Mueller in 3 to 4 days. 2. Neurology, Dr. Hawkins in 2 weeks. ALLERGIES: NORCO. DISCHARGE MEDICATIONS: 1. Glipizide 10 mg b.i.d. with meals. 2. Metformin 500 mg b.i.d. 3. Lantus 20 units b.i.d. The patient was advised to start 20 units daily. She was advised to increase the dose to twice daily if her blood sugar remains persistently elevated. The patient was seen and examined on the day of discharge. Denies any new complaints. No chest pain, shortness of breath, palpitations, or new focal deficit reported. BRIEF HOSPITAL COURSE: The patient is a 49-year-old female with multiple sclerosis, presented to the hospital with generalized weakness, double vision, swallowing difficulty along with difficulty walking. She was diagnosed with multiple sclerosis exacerbation. She was started on 1 g Solu-Medrol daily for 5 days per Neurology recommendation. Her symptoms have significantly improved. She completed 5 days of IV steroids. She underwent an MRI of the brain that showed stable multiple sclerosis lesion. Her EEG was normal. She was evaluated by Neurology as well. The patient's blood sugar on ER arrival prior to IV steroids was 498. Her recent A1c however was 9.0 on 05/16/20. She had significantly elevated sugar during this hospital stay after steroids. She also went into diabetic ketoacidosis with bicarbonate of 10 with ketones of 4.9. She was started on high dose of insulin during this hospital stay that has been gradually tapered down. The maximum insulin she received was 50 units of Lantus b.i.d. along with up to 100 units of insulin in a sliding scale form. She was also started on metformin and glipizide. She was extensively counseled by dietitian as well. Her sugars have improved after discontinuation of the steroids. She was advised to monitor her blood sugars on a daily basis and to maintain a log. FINAL DIAGNOSES: 1. Multiple sclerosis exacerbation, status post 5 days of steroids. 2. Uncontrolled diabetes mellitus type 2. 3. Diabetic ketoacidosis. 4. Significant hyperglycemia due to steroids requiring more than 200 units of insulin daily. 5. Morbid obesity with a BMI of 51. 6. Hypertension. 7. Anxiety. 8. Chronic pain syndrome. 9. Chronic diarrhea. 10. Hyponatremia. 11. Obstructive sleep apnea, on CPAP. 12. Swallow dysfunction, on modified diet. 13. Constipation. 14. I discussed with the pharmacist at [facility] who will try to arrange for a blood sugar monitor. If Lantus is not covered by her insurance, this will be changed to other form. 15. The patient understands the above plan of care. She also was counseled on symptoms of hypoglycemia. Job ID: [id number]
== END 2020-06-14 14:40 | disposition home or self-care (01) | DRG 58 ==
LOC: ERS 17:13 → T4-A 21:49
PROVIDERS: ADMIT Family Medicine; ATTEND Family Medicine
DX: G35 Multiple sclerosis (principal); E09.10 Drug or chemical induced diabetes mellitus with ketoacidosis without coma; E87.1 Hypo-osmolality and hyponatremia; Z68.43 Body mass index [BMI] 50.0-59.9, adult; K76.0 Fatty (change of) liver, not elsewhere classified; G47.33 Obstructive sleep apnea (adult) (pediatric); I10 Essential (primary) hypertension; F43.10 Post-traumatic stress disorder, unspecified; F32.9 Major depressive disorder, single episode, unspecified; N31.9 Neuromuscular dysfunction of bladder, unspecified; E66.01 Morbid (severe) obesity due to excess calories; T38.0X5A Adverse effect of glucocorticoids and synthetic analogues, initial encounter; F41.9 Anxiety disorder, unspecified; G89.4 Chronic pain syndrome; R13.10 Dysphagia, unspecified; K52.9 Noninfective gastroenteritis and colitis, unspecified; K59.09 Other constipation; K21.9 Gastro-esophageal reflux disease without esophagitis; Z71.3 Dietary counseling and surveillance
CPT/HCPCS: 36415; 36416; 70553; 76705; 80048; 80053; 81001; 82010; 83605; 83690; 83735; 84100; 85025; 85610; 85730; 95712; 95819; 95957; 96374; A9579; J1650; J1815; J2930; J3475; J3480; J7050

== ENCOUNTER 2021-03-10 10:10 | Outpatient (CLI) | payer OTHER ==
[2021-03-10 19:16] LABS: SARS-CoV-2 PCR by NAA Not Detected (NotDetected)
== END 2021-03-10 10:11 | disposition home or self-care (01) ==
LOC: LABBT 10:10
PROVIDERS: ATTEND Family Medicine
DX: Z01.812 Encounter for preprocedural laboratory examination (principal); Z20.822 Contact with and (suspected) exposure to COVID-19
CPT/HCPCS: 87635; U0003; U0005

== ENCOUNTER 2021-03-13 12:47 | Outpatient (CLI) | payer OTHER | END 2021-03-13 12:48 | disposition home or self-care (01) | PROVIDERS: ATTEND Family Medicine | DX: R13.19 Other dysphagia (principal); G35 Multiple sclerosis | CPT/HCPCS: 74230 ==

== ENCOUNTER 2021-08-01 09:24 | Outpatient (CLI) | payer OTHER | END 2021-08-01 09:25 | disposition home or self-care (01) | LOC: DTY/OP 09:24 | PROVIDERS: ATTEND Family Medicine | DX: E78.5 Hyperlipidemia, unspecified (principal); E11.9 Type 2 diabetes mellitus without complications | CPT/HCPCS: 97802 ==

== ENCOUNTER 2021-08-01 11:49 | Outpatient (CLI) | payer OTHER | END 2021-08-01 11:50 | disposition home or self-care (01) | LOC: BICMAMMO 11:49 | PROVIDERS: ATTEND Family Medicine | DX: Z12.31 Encounter for screening mammogram for malignant neoplasm of breast (principal); Z80.3 Family history of malignant neoplasm of breast | CPT/HCPCS: 77063; 77067 ==

== ENCOUNTER 2021-08-31 12:34 | Inpatient (IN) | payer OTHER ==
[2021-08-31 14:44] LABS: #Basophils 0.1 thou/uL (0.0-0.2); #Eosinphils 0.3 thou/uL (0.0-0.7); #Lymphocytes 2.2 thou/uL (1.20-3.40); #Monocytes 0.5 thou/uL (0.11-0.59); #Neutrophils 4.1 thou/uL (1.40-6.50); %Basophils 1.3 % (0.0-1.0); %Lymphocytes 30.3 % (21.0-51.0); %Monocytes 7.4 % (0.0-10.0); Hemoglobin 13.9 g/dL (12.0-16.0); Mean Corpuscular HGB CONC 32.5 g/dL (32.0-36.0); Mean Corpuscular Hemoglobin 31.4 pg (27.0-31.0); Mean Corpuscular Volume 96.5 fL (78.0-98.0); Mean Platelet Volume 8.9 fL (7.4-10.4); Platelet Count 188 thou/uL (130-400); RBC Distribution Width 12.2 % (11.5-14.5); Red Blood Cell (RBC) Count 4.44 mill/uL (4.20-5.40); White Blood Cell (WBC) Count 7.1 thou/uL (4.8-10.8)
[2021-08-31 14:49] LABS: Bacteria/HPF 1+ HPF (None Seen); Bilirubin Negative (Negative); Blood, Urine Negative (Negative); Clarity Turbid (Clear); Glucose, Urine (Dipstick) Normal (Negative); Ketone, Urine Negative (Negative); Leukocyte 500 Leu/uL (Negative); Nitrite Negative (Negative); Protein, Urine (Dipstick) Negative (Neg-Trace); RBC/HPF 0-3 HPF (0-3); Specific Gravity, Urine 1.023 (1.002-1.036); Urobilinogen Normal mg/dL (Less than 2); WBC/HPF Greater than 50 HPF (0-3)
[2021-08-31 15:29] LABS: ALT (SGPT) 71 U/L (8-55); AST (SGOT) 54 U/L (5-34); Albumin 4.2 g/dL (3.5-5.0); Alkaline Phosphatase 140 U/L (40-110); Anion Gap 13 mmol/L (10-20); BUN (Urea Nitrogen) 16 mg/dL (9.8-20.1); Bilirubin, Total 0.3 mg/dL (0.2-1.2); Calc. Creatinine Clearance 0 mL/min (70-130); Calcium 9.6 mg/dL (7.8-10.44); Carbon Dioxide 25 mmol/L (22-29); Chloride 106 mmol/L (98-107); Globulin 2.7 g/dL (2.4-3.5); Glucose 116 mg/dL (70-105); Potassium 4.5 mmol/L (3.5-5.1); Protein, Total 6.9 g/dL (6.0-8.3); Sodium 139 mmol/L (136-145)
[2021-08-31] MEDS ORDERED: METHYLPREDNISOLONE SOD SUCC IVPB SCH (15:30)
[2021-08-31] MEDS ORDERED: SODIUM CHLORIDE 0.9% IVPB SCH (15:30)
[2021-08-31] MEDS ORDERED: cefTRIAXone\\ROCEPHIN 1 GM VIAL ONE (15:37)
[2021-08-31] MEDS ORDERED: methylPREDNISolone Sod Succ 1 GM in Sodium Chloride 0.9% 100 ML IVPB SCH (16:00)
[2021-08-31] MEDS ORDERED: Ondansetron ODT 4 MG TAB PO PRN (16:52)
[2021-08-31] MEDS ORDERED: Acetaminophen 650 MG Suppository PR PRN (16:52)
[2021-08-31] MEDS ORDERED: Ondansetron PF 4 MG/2 ML Vial IVP PRN (16:52)
[2021-08-31] MEDS ORDERED: Acetaminophen 325 MG TAB PO PRN ×2 (16:52→18:07)
[2021-08-31] MEDS ORDERED: Dextrose 5% in Water 1,000 ML IV PRN (16:58)
[2021-08-31] MEDS ORDERED: HumaLOG 300 UNITS/3 ML VIAL SC PRN (16:58)
[2021-08-31] MEDS ORDERED: Dextrose 50% Abboject 50 ML SYRINGE SLOW IVP PRN (16:58)
[2021-08-31] MEDS ORDERED: Albuterol Sulfate 2.5 mg/3 ml Neb NEB PRN (17:53)
[2021-08-31] MEDS ORDERED: Acetaminophen 325 MG TAB PO SCH (18:30)
[2021-08-31 18:46] VITALS: BMI 50.8
[2021-08-31] MEDS: cefTRIAXone\\ROCEPHIN 1 GM in Sodium Chloride 0.9% 100 ML IVPB SCH (19:43)
[2021-08-31] MEDS: Gabapentin 300 MG CAP PO SCH (20:46)
[2021-08-31] MEDS: tiZANidine HCl 4 MG TAB PO PRN (20:47)
[2021-08-31] MEDS: Lantus 1000 UNITS/10 ML VIAL SC SCH (20:52)
[2021-08-31] MEDS ORDERED: Escitalopram Oxalate 10 mg Tablet PO SCH (21:00)
[2021-09-01] MEDS: HumaLOG 300 UNITS/3 ML VIAL SC PRN ×3 (05:43→16:25)
[2021-09-01] MEDS: tiZANidine HCl 4 MG TAB PO PRN ×2 (06:31→20:05)
[2021-09-01 06:51] LABS: #Lymphocytes 1.4 thou/uL (1.20-3.40); #Monocytes 0.1 thou/uL (0.11-0.59); %Basophils 0.2 % (0.0-1.0); %Eosinophils 0.3 % (0.0-10.0); %Lymphocytes 14.8 % (21.0-51.0); %Monocytes 0.8 % (0.0-10.0); %Neutrophils 83.8 % (42.0-75.0); Hemoglobin 14.1 g/dL (12.0-16.0); Mean Corpuscular HGB CONC 34.2 g/dL (32.0-36.0); Mean Corpuscular Hemoglobin 32.5 pg (27.0-31.0); Mean Platelet Volume 8.5 fL (7.4-10.4); Platelet Count 178 thou/uL (130-400); RBC Distribution Width 12.2 % (11.5-14.5); Red Blood Cell (RBC) Count 4.33 mill/uL (4.20-5.40); White Blood Cell (WBC) Count 9.6 thou/uL (4.8-10.8)
[2021-09-01 07:09] LABS: Anion Gap 17 mmol/L (10-20); BUN (Urea Nitrogen) 15 mg/dL (9.8-20.1); Calc. Creatinine Clearance 177 mL/min (70-130); Carbon Dioxide 19 mmol/L (22-29); Chloride 106 mmol/L (98-107); Glucose 242 mg/dL (70-105); Sodium 138 mmol/L (136-145)
[2021-09-01] MEDS ORDERED: methylPREDNISolone Sod Succ 40 MG VIAL IVP SCH (09:00)
[2021-09-01] MEDS: methylPREDNISolone Sod Succ 1 GM in Sodium Chloride 0.9% 100 ML IVPB SCH (09:36)
[2021-09-01] MEDS: Gabapentin 300 MG CAP PO SCH ×3 (09:36→20:05)
[2021-09-01] MEDS: Enoxaparin Sodium 40 MG/0.4 ML SYRINGE SC SCH (09:37)
[2021-09-01] MEDS ORDERED: Magnevist 469MG/ML 20 ML VIAL ONE (09:49)
[2021-09-01 12:30] LABS: SARS-CoV-2 PCR by NAA Not Detected (NotDetected)
[2021-09-01] MEDS: cefTRIAXone\\ROCEPHIN 1 GM in Sodium Chloride 0.9% 100 ML IVPB SCH (17:53)
[2021-09-01] MEDS: Oxybutynin 5 MG TAB PO SCH (20:05)
[2021-09-01] MEDS: Lantus 1000 UNITS/10 ML VIAL SC SCH (20:09)
[2021-09-01] MEDS: Amitriptyline HCl 100 MG TAB PO SCH (21:31)
[2021-09-02] MEDS: hydrOXYzine 25 MG TAB PO PRN ×2 (00:15→22:24)
[2021-09-02] MEDS: Melatonin 3 MG TAB PO PRN ×2 (01:13→21:29)
[2021-09-02] MEDS: tiZANidine HCl 4 MG TAB PO PRN ×2 (01:13→14:54)
[2021-09-02] MEDS: HumaLOG 300 UNITS/3 ML VIAL SC PRN ×3 (04:42→17:35)
[2021-09-02] MEDS: HYDROcodone/Acetaminophen 5/325 mg Tablet PO PRN ×2 (04:43→21:31)
[2021-09-02 06:38] LABS: #Lymphocytes 1.7 thou/uL (1.20-3.40); #Monocytes 0.6 thou/uL (0.11-0.59); #Neutrophils 12.6 thou/uL (1.40-6.50); %Basophils 0.2 % (0.0-1.0); %Eosinophils 0.1 % (0.0-10.0); %Lymphocytes 11.1 % (21.0-51.0); %Monocytes 4.1 % (0.0-10.0); %Neutrophils 84.5 % (42.0-75.0); Hemoglobin 13.6 g/dL (12.0-16.0); Mean Corpuscular HGB CONC 33.3 g/dL (32.0-36.0); Mean Corpuscular Hemoglobin 32.1 pg (27.0-31.0); Mean Corpuscular Volume 96.3 fL (78.0-98.0); Mean Platelet Volume 8.8 fL (7.4-10.4); Platelet Count 190 thou/uL (130-400); RBC Distribution Width 12.3 % (11.5-14.5); Red Blood Cell (RBC) Count 4.23 mill/uL (4.20-5.40); White Blood Cell (WBC) Count 14.9 thou/uL (4.8-10.8)
[2021-09-02 07:06] LABS: Anion Gap 14 mmol/L (10-20); BUN (Urea Nitrogen) 13 mg/dL (9.8-20.1); Calc. Creatinine Clearance 167 mL/min (70-130); Calcium 9.3 mg/dL (7.8-10.44); Carbon Dioxide 23 mmol/L (22-29); Chloride 104 mmol/L (98-107); Glucose 289 mg/dL (70-105); Potassium 4.5 mmol/L (3.5-5.1); Sodium 136 mmol/L (136-145)
[2021-09-02] MEDS: methylPREDNISolone Sod Succ 1 GM in Sodium Chloride 0.9% 100 ML IVPB SCH (08:41)
[2021-09-02] MEDS: Oxybutynin 5 MG TAB PO SCH ×2 (08:41→21:32)
[2021-09-02] MEDS: Gabapentin 300 MG CAP PO SCH ×3 (08:41→21:29)
[2021-09-02] MEDS: metFORMIN 500 MG TAB PO SCH (08:41)
[2021-09-02] MEDS: Multivit, Therapeutic 1 TAB PO SCH (08:41)
[2021-09-02] MEDS: Citalopram 20 MG TAB PO SCH (08:42)
[2021-09-02] MEDS: Enoxaparin Sodium 40 MG/0.4 ML SYRINGE SC SCH (08:42)
[2021-09-02] MEDS: cefTRIAXone\\ROCEPHIN 1 GM in Sodium Chloride 0.9% 100 ML IVPB SCH (17:29)
[2021-09-02] MEDS: Lantus 1000 UNITS/10 ML VIAL SC SCH (21:33)
[2021-09-02] MEDS: Amitriptyline HCl 100 MG TAB PO SCH (22:24)
[2021-09-03] MEDS: HumaLOG 300 UNITS/3 ML VIAL SC PRN ×2 (06:05→11:55)
[2021-09-03 06:17] LABS: #Monocytes 0.5 thou/uL (0.11-0.59); #Neutrophils 10.2 thou/uL (1.40-6.50); %Basophils 0.1 % (0.0-1.0); %Eosinophils 0.1 % (0.0-10.0); %Lymphocytes 15.4 % (21.0-51.0); %Monocytes 4.2 % (0.0-10.0); %Neutrophils 80.1 % (42.0-75.0); Mean Corpuscular HGB CONC 32.4 g/dL (32.0-36.0); Mean Corpuscular Hemoglobin 31.3 pg (27.0-31.0); Mean Corpuscular Volume 96.4 fL (78.0-98.0); Mean Platelet Volume 8.7 fL (7.4-10.4); Platelet Count 193 thou/uL (130-400); RBC Distribution Width 12.2 % (11.5-14.5); Red Blood Cell (RBC) Count 4.15 mill/uL (4.20-5.40); White Blood Cell (WBC) Count 12.8 thou/uL (4.8-10.8)
[2021-09-03 06:33] LABS: Anion Gap 12 mmol/L (10-20); BUN (Urea Nitrogen) 14 mg/dL (9.8-20.1); Calc. Creatinine Clearance 179 mL/min (70-130); Carbon Dioxide 24 mmol/L (22-29); Chloride 104 mmol/L (98-107); Glucose 232 mg/dL (70-105); Potassium 4.3 mmol/L (3.5-5.1); Sodium 136 mmol/L (136-145)
[2021-09-03] MEDS: Gabapentin 300 MG CAP PO SCH (08:22)
[2021-09-03] MEDS: metFORMIN 500 MG TAB PO SCH (08:22)
[2021-09-03] MEDS: Multivit, Therapeutic 1 TAB PO SCH (08:22)
[2021-09-03] MEDS: Citalopram 20 MG TAB PO SCH (08:23)
[2021-09-03] MEDS: Oxybutynin 5 MG TAB PO SCH (08:23)
[2021-09-03] MEDS: Enoxaparin Sodium 40 MG/0.4 ML SYRINGE SC SCH (08:24)
[2021-09-03] MEDS ORDERED: methylPREDNISolone Sod Succ 1 GM in Sodium Chloride 0.9% 100 ML IVPB SCH (09:00)
[2021-09-03] MEDS: tiZANidine HCl 4 MG TAB PO PRN (11:52)
[2021-09-03 14:53] VITALS: BP 101/64; TEMP 97.9
[2021-09-06] MEDS ORDERED: Venlafaxine XR 37.5 MG CAP PO SCH (09:00)
== END 2021-09-03 14:23 | disposition home or self-care (01) | DRG 59 ==
LOC: ERS 12:34 → T4-A 16:05
PROVIDERS: ADMIT Family Medicine; ATTEND Internal Medicine
DX: G35 Multiple sclerosis (principal); N39.0 Urinary tract infection, site not specified; Z68.43 Body mass index [BMI] 50.0-59.9, adult; I10 Essential (primary) hypertension; F43.10 Post-traumatic stress disorder, unspecified; K21.9 Gastro-esophageal reflux disease without esophagitis; E11.65 Type 2 diabetes mellitus with hyperglycemia; F41.9 Anxiety disorder, unspecified; F32.9 Major depressive disorder, single episode, unspecified; E66.01 Morbid (severe) obesity due to excess calories; K75.81 Nonalcoholic steatohepatitis (NASH); G47.33 Obstructive sleep apnea (adult) (pediatric); T50.905A Adverse effect of unspecified drugs, medicaments and biological substances, initial encounter; Z20.822 Contact with and (suspected) exposure to COVID-19; Z88.8 Allergy status to other drugs, medicaments and biological substances; Z79.84 Long term (current) use of oral hypoglycemic drugs; Z79.899 Other long term (current) drug therapy; Z98.890 Other specified postprocedural states
CPT/HCPCS: 36415; 36416; 70553; 80048; 80053; 81003; 81015; 85025; 87086; 96365; 96367; A9579; J0696; J1650; J1815; J2930; J3490; U0003; U0005

== ENCOUNTER 2021-10-15 13:21 | Inpatient (IN) | payer OTHER ==
[2021-10-15 14:21] LABS: #Lymphocytes 1.3 thou/uL (1.20-3.40); #Monocytes 0.5 thou/uL (0.11-0.59); %Basophils 0.4 % (0.0-1.0); %Eosinophils 0.1 % (0.0-10.0); %Lymphocytes 10.7 % (21.0-51.0); %Neutrophils 84.8 % (42.0-75.0); Hemoglobin 14.6 g/dL (12.0-16.0); Mean Corpuscular HGB CONC 34.8 g/dL (32.0-36.0); Mean Corpuscular Hemoglobin 32.9 pg (27.0-31.0); Mean Corpuscular Volume 94.4 fL (78.0-98.0); Platelet Count 204 thou/uL (130-400); RBC Distribution Width 12.3 % (11.5-14.5); Red Blood Cell (RBC) Count 4.43 mill/uL (4.20-5.40); White Blood Cell (WBC) Count 11.8 thou/uL (4.8-10.8)
[2021-10-15] MEDS ORDERED: Ketorolac Tromethamine 30 MG/ML VIAL ONE (14:29)
[2021-10-15] MEDS ORDERED: Metoclopramide HCl 10 MG/2 ML VIAL ONE (14:29)
[2021-10-15] MEDS ORDERED: diphenhydrAMINE 50 MG/ML VIAL ONE (14:29)
[2021-10-15 14:45] LABS: ALT (SGPT) 72 U/L (8-55); AST (SGOT) 37 U/L (5-34); Albumin 4.2 g/dL (3.5-5.0); Alkaline Phosphatase 143 U/L (40-110); Anion Gap 15 mmol/L (10-20); BUN (Urea Nitrogen) 12 mg/dL (9.8-20.1); Bilirubin, Total 0.8 mg/dL (0.2-1.2); Calc. Creatinine Clearance 0 mL/min (70-130); Calcium 9.9 mg/dL (7.8-10.44); Carbon Dioxide 24 mmol/L (22-29); Chloride 103 mmol/L (98-107); Globulin 3.2 g/dL (2.4-3.5); Glucose 242 mg/dL (70-105); Potassium 3.7 mmol/L (3.5-5.1); Protein, Total 7.4 g/dL (6.0-8.3); Sodium 138 mmol/L (136-145)
[2021-10-15] MEDS ORDERED: Diazepam 10 MG/2 ML SYRINGE ONE (15:20)
[2021-10-15] MEDS ORDERED: Meclizine HCl 25 MG TAB PO SCH (17:30)
[2021-10-15] MEDS ORDERED: hydrALAZINE 20 MG/ML VIAL SLOW IVP PRN (18:31)
[2021-10-15] MEDS ORDERED: Bisacodyl 5 MG TAB PO PRN (18:31)
[2021-10-15] MEDS ORDERED: Dextrose 50% Abboject 50 ML SYRINGE SLOW IVP PRN (18:31)
[2021-10-15] MEDS ORDERED: Dextrose 5% in Water 1,000 ML IV PRN (18:31)
[2021-10-15] MEDS: Aspirin 325 mg Enteric Coated Tablet PO SCH ×2 (20:47→20:51)
[2021-10-16] MEDS: Meclizine HCl 25 MG TAB PO SCH ×4 (00:32→20:38)
[2021-10-16] MEDS: HumaLOG 300 UNITS/3 ML VIAL SC PRN (06:26)
[2021-10-16 06:38] LABS: #Basophils 0.1 thou/uL (0.0-0.2); #Eosinphils 0.2 thou/uL (0.0-0.7); #Lymphocytes 2.8 thou/uL (1.20-3.40); #Monocytes 0.6 thou/uL (0.11-0.59); #Neutrophils 6.6 thou/uL (1.40-6.50); %Basophils 0.9 % (0.0-1.0); %Eosinophils 1.7 % (0.0-10.0); %Lymphocytes 27.7 % (21.0-51.0); %Monocytes 5.5 % (0.0-10.0); %Neutrophils 64.2 % (42.0-75.0); Hemoglobin 13.3 g/dL (12.0-16.0); Mean Corpuscular HGB CONC 34.3 g/dL (32.0-36.0); Mean Corpuscular Hemoglobin 33.3 pg (27.0-31.0); Mean Corpuscular Volume 97.1 fL (78.0-98.0); Mean Platelet Volume 7.8 fL (7.4-10.4); Platelet Count 207 thou/uL (130-400); RBC Distribution Width 12.5 % (11.5-14.5); White Blood Cell (WBC) Count 10.3 thou/uL (4.8-10.8)
[2021-10-16 06:57] LABS: Anion Gap 14 mmol/L (10-20); BUN (Urea Nitrogen) 12 mg/dL (9.8-20.1); Calc. Creatinine Clearance 177 mL/min (70-130); Carbon Dioxide 23 mmol/L (22-29); Cardiac Risk 11.1 (Less than 4.5); Chloride 107 mmol/L (98-107); Cholesterol 288 mg/dl (< 200 Desired); Glucose 155 mg/dL (70-105); HDL Cholesterol 26 mg/dL (>60 Neg Risk); Potassium 3.5 mmol/L (3.5-5.1); Sodium 140 mmol/L (136-145); Triglycerides 443 mg/dL (Less than 150)
[2021-10-16 08:43] LABS: SARS-CoV-2 PCR by NAA Not Detected (NotDetected)
[2021-10-16] MEDS ORDERED: Aspirin 325 mg Enteric Coated Tablet PO SCH (09:00)
[2021-10-16] MEDS: Enoxaparin Sodium 40 MG/0.4 ML SYRINGE SC SCH (09:19)
[2021-10-16] MEDS: Acetaminophen 325 MG TAB PO PRN (12:17)
[2021-10-16] MEDS: Ondansetron PF 4 MG/2 ML Vial IVP PRN ×2 (12:18→20:38)
[2021-10-16] MEDS ORDERED: Ketorolac Tromethamine 30 MG/ML VIAL IVP PRN (15:06)
[2021-10-16] MEDS: Gabapentin 300 MG CAP PO SCH ×2 (16:02→20:38)
[2021-10-16] MEDS: Oxybutynin 5 MG TAB PO SCH (20:38)
[2021-10-16] MEDS: Lantus 1000 UNITS/10 ML VIAL SC SCH (20:39)
[2021-10-16] MEDS: Amitriptyline HCl 100 MG TAB PO SCH (21:01)
[2021-10-17] MEDS: Meclizine HCl 25 MG TAB PO SCH ×3 (06:26→20:41)
[2021-10-17] MEDS: Enoxaparin Sodium 40 MG/0.4 ML SYRINGE SC SCH (09:02)
[2021-10-17] MEDS: Lisinopril 5 MG TAB PO SCH (09:02)
[2021-10-17] MEDS: Gabapentin 300 MG CAP PO SCH ×3 (09:02→20:41)
[2021-10-17] MEDS: metFORMIN 500 MG TAB PO SCH (09:03)
[2021-10-17] MEDS: Citalopram 20 MG TAB PO SCH (09:03)
[2021-10-17] MEDS: Oxybutynin 5 MG TAB PO SCH ×2 (09:03→20:41)
[2021-10-17] MEDS: Acetaminophen 325 MG TAB PO PRN ×2 (11:50→17:01)
[2021-10-17] MEDS: HumaLOG 300 UNITS/3 ML VIAL SC PRN (11:51)
[2021-10-17] MEDS: Amitriptyline HCl 100 MG TAB PO SCH (20:40)
[2021-10-17] MEDS: Teriflunomide [Aubagio] 14 MG Tablet PO SCH (20:42)
[2021-10-17] MEDS: Lantus 1000 UNITS/10 ML VIAL SC SCH (20:46)
[2021-10-18] MEDS: Meclizine HCl 25 MG TAB PO SCH ×3 (05:59→21:32)
[2021-10-18] MEDS: metFORMIN 500 MG TAB PO SCH (08:21)
[2021-10-18] MEDS: Enoxaparin Sodium 40 MG/0.4 ML SYRINGE SC SCH (08:21)
[2021-10-18] MEDS: Gabapentin 300 MG CAP PO SCH ×3 (08:21→21:32)
[2021-10-18] MEDS: Oxybutynin 5 MG TAB PO SCH ×2 (08:21→21:32)
[2021-10-18] MEDS: Citalopram 20 MG TAB PO SCH (08:22)
[2021-10-18] MEDS: Lisinopril 5 MG TAB PO SCH (08:22)
[2021-10-18 08:38] LABS: Phosphorus 4.2 mg/dL (2.3-4.7)
[2021-10-18 08:41] LABS: Anion Gap 14 mmol/L (10-20); BUN (Urea Nitrogen) 12 mg/dL (9.8-20.1); Calc. Creatinine Clearance 172 mL/min (70-130); Calcium 9.8 mg/dL (7.8-10.44); Carbon Dioxide 23 mmol/L (22-29); Chloride 105 mmol/L (98-107); Glucose 141 mg/dL (70-105); Magnesium 2.1 mg/dL (1.6-2.6); Potassium 3.5 mmol/L (3.5-5.1); Sodium 138 mmol/L (136-145)
[2021-10-18] MEDS ORDERED: Potassium Chloride 20 MEQ TAB PO SCH ×2 (11:40→17:00)
[2021-10-18] MEDS: HumaLOG 300 UNITS/3 ML VIAL SC PRN (11:53)
[2021-10-18] MEDS: Ondansetron PF 4 MG/2 ML Vial IVP PRN (12:18)
[2021-10-18] MEDS ORDERED: HumaLOG 300 UNITS/3 ML VIAL SC PRN (13:50)
[2021-10-18] MEDS ORDERED: predniSONE 20 MG TAB PO SCH (14:00)
[2021-10-18] MEDS: NS 0.9% w/ 20 MEQ KCL 1,000 ML/1,000 ML BAG IV SCH (16:02)
[2021-10-18] MEDS: Amitriptyline HCl 100 MG TAB PO SCH (21:31)
[2021-10-18] MEDS: Teriflunomide [Aubagio] 14 MG Tablet PO SCH (21:33)
[2021-10-18] MEDS: Lantus 1000 UNITS/10 ML VIAL SC SCH (21:33)
[2021-10-19] MEDS: HumaLOG 300 UNITS/3 ML VIAL SC PRN ×3 (06:09→17:36)
[2021-10-19] MEDS: Meclizine HCl 25 MG TAB PO SCH ×3 (06:09→21:09)
[2021-10-19] MEDS: Aspirin 81 mg Enteric Coated Tablet PO SCH (08:55)
[2021-10-19] MEDS: Lisinopril 5 MG TAB PO SCH (08:56)
[2021-10-19] MEDS: predniSONE 20 MG TAB PO SCH (08:57)
[2021-10-19] MEDS: Oxybutynin 5 MG TAB PO SCH ×2 (08:58→21:05)
[2021-10-19] MEDS: Citalopram 20 MG TAB PO SCH (08:58)
[2021-10-19] MEDS: Gabapentin 300 MG CAP PO SCH ×3 (08:59→21:05)
[2021-10-19] MEDS ORDERED: Lantus 1000 UNITS/10 ML VIAL SC SCH ×2 (09:00→17:25)
[2021-10-19] MEDS: Enoxaparin Sodium 40 MG/0.4 ML SYRINGE SC SCH (09:25)
[2021-10-19 09:41] VITALS: BMI 50.4
[2021-10-19] MEDS: NS 0.9% w/ 20 MEQ KCL 1,000 ML/1,000 ML BAG IV SCH (11:24)
[2021-10-19] MEDS: Amitriptyline HCl 100 MG TAB PO SCH (21:05)
[2021-10-19] MEDS: Cholecalciferol 1,000 UNITS (25 MCG) TAB PO SCH (21:06)
[2021-10-19] MEDS: Lantus 1000 UNITS/10 ML VIAL SC SCH (21:07)
[2021-10-19] MEDS: Teriflunomide [Aubagio] 14 MG Tablet PO SCH (21:25)
[2021-10-20] MEDS: Meclizine HCl 25 MG TAB PO SCH ×3 (06:07→20:14)
[2021-10-20] MEDS: HumaLOG 300 UNITS/3 ML VIAL SC PRN ×3 (06:07→17:15)
[2021-10-20 07:46] LABS: #Eosinphils 0.1 thou/uL (0.0-0.7); #Lymphocytes 3.6 thou/uL (1.20-3.40); #Monocytes 0.7 thou/uL (0.11-0.59); #Neutrophils 10.4 thou/uL (1.40-6.50); %Basophils 0.2 % (0.0-1.0); %Eosinophils 0.6 % (0.0-10.0); %Lymphocytes 24.3 % (21.0-51.0); %Monocytes 4.6 % (0.0-10.0); %Neutrophils 70.3 % (42.0-75.0); Hemoglobin 14.7 g/dL (12.0-16.0); Mean Corpuscular HGB CONC 33.7 g/dL (32.0-36.0); Mean Corpuscular Hemoglobin 32.4 pg (27.0-31.0); Mean Corpuscular Volume 95.9 fL (78.0-98.0); Mean Platelet Volume 7.7 fL (7.4-10.4); Platelet Count 217 thou/uL (130-400); RBC Distribution Width 12.7 % (11.5-14.5); Red Blood Cell (RBC) Count 4.54 mill/uL (4.20-5.40); White Blood Cell (WBC) Count 14.8 thou/uL (4.8-10.8)
[2021-10-20 08:00] LABS: Anion Gap 12 mmol/L (10-20); BUN (Urea Nitrogen) 15 mg/dL (9.8-20.1); Calc. Creatinine Clearance 179 mL/min (70-130); Calcium 9.3 mg/dL (7.8-10.44); Carbon Dioxide 25 mmol/L (22-29); Chloride 106 mmol/L (98-107); Glucose 130 mg/dL (70-105); Potassium 3.6 mmol/L (3.5-5.1); Sodium 139 mmol/L (136-145)
[2021-10-20] MEDS ORDERED: Lantus 1000 UNITS/10 ML VIAL SC SCH (09:00)
[2021-10-20] MEDS ORDERED: predniSONE 20 MG TAB PO SCH ×2 (09:45→11:15)
[2021-10-20] MEDS: Enoxaparin Sodium 40 MG/0.4 ML SYRINGE SC SCH (09:53)
[2021-10-20] MEDS: Gabapentin 300 MG CAP PO SCH ×3 (09:54→20:14)
[2021-10-20] MEDS: Lisinopril 5 MG TAB PO SCH (09:55)
[2021-10-20] MEDS: Aspirin 81 mg Enteric Coated Tablet PO SCH (09:55)
[2021-10-20] MEDS: Citalopram 20 MG TAB PO SCH (09:55)
[2021-10-20] MEDS: Oxybutynin 5 MG TAB PO SCH ×2 (09:55→20:14)
[2021-10-20] MEDS: Acetaminophen 325 MG TAB PO PRN (10:05)
[2021-10-20] MEDS ORDERED: Ondansetron ODT 4 MG TAB PO PRN (10:27)
[2021-10-20] MEDS: predniSONE 20 MG TAB PO SCH (12:57)
[2021-10-20 15:57] VITALS: BP 113/64; TEMP 97.9
[2021-10-20] MEDS ORDERED: Potassium Chloride 20 MEQ TAB PO SCH (17:00)
[2021-10-20] MEDS: Cholecalciferol 1,000 UNITS (25 MCG) TAB PO SCH (20:14)
[2021-10-20] MEDS: Amitriptyline HCl 100 MG TAB PO SCH (20:14)
[2021-10-20] MEDS: Lantus 1000 UNITS/10 ML VIAL SC SCH (20:14)
[2021-10-20] MEDS: Teriflunomide [Aubagio] 14 MG Tablet PO SCH (20:32)
[2021-10-21] MEDS ORDERED: predniSONE 20 MG TAB PO SCH (08:00)
[2021-10-24] MEDS ORDERED: predniSONE 20 MG TAB PO SCH (08:00)
== END 2021-10-20 21:35 | DRG 59 ==
LOC: ERS 13:21 → NEURO 16:17 → OBSVTOIN 10-17 16:13
PROVIDERS: ADMIT Internal Medicine; ATTEND Internal Medicine
PROC: 5A09357 Assistance with Respiratory Ventilation, Less than 24 Consecutive Hours, Continuous Positive Airway Pressure (ICD-10-PCS; principal; 2021-10-17)
DX: G35 Multiple sclerosis (principal); Z68.43 Body mass index [BMI] 50.0-59.9, adult; Z20.822 Contact with and (suspected) exposure to COVID-19; G47.33 Obstructive sleep apnea (adult) (pediatric); E11.40 Type 2 diabetes mellitus with diabetic neuropathy, unspecified; E87.6 Hypokalemia; F41.9 Anxiety disorder, unspecified; I10 Essential (primary) hypertension; N31.9 Neuromuscular dysfunction of bladder, unspecified; E66.01 Morbid (severe) obesity due to excess calories; F32.A Depression, unspecified; F43.10 Post-traumatic stress disorder, unspecified; I08.1 Rheumatic disorders of both mitral and tricuspid valves; Z88.8 Allergy status to other drugs, medicaments and biological substances; Z99.89 Dependence on other enabling machines and devices; Z88.6 Allergy status to analgesic agent; Z79.899 Other long term (current) drug therapy; Z79.4 Long term (current) use of insulin; Z79.84 Long term (current) use of oral hypoglycemic drugs; Z87.440 Personal history of urinary (tract) infections
CPT/HCPCS: 36415; 36416; 70450; 70551; 80048; 80053; 80061; 82607; 82746; 83735; 84100; 85025; 93306; 93880; 96365; 96372; 96375; 96376; G0378; J1200; J1650; J1815; J1885; J2405; J2765; J3360; J3480; J7512; Q0162; U0003; U0005

== ENCOUNTER 2022-08-07 08:37 | Outpatient (CLI) | payer OTHER | END 2022-08-07 08:38 | disposition home or self-care (01) | LOC: BICMAMMO 08:37 | PROVIDERS: ATTEND Family Medicine | DX: Z12.31 Encounter for screening mammogram for malignant neoplasm of breast (principal) | CPT/HCPCS: 77067 ==

== ENCOUNTER 2023-09-09 10:51 | Outpatient (CLI) | payer OTHER | END 2023-09-09 10:52 | disposition home or self-care (01) | LOC: BICMAMMO 10:51 | PROVIDERS: ATTEND Family Medicine | DX: Z12.31 Encounter for screening mammogram for malignant neoplasm of breast (principal); Z80.3 Family history of malignant neoplasm of breast | CPT/HCPCS: 77067 ==

== ENCOUNTER 2024-05-22 13:49 | Emergency (ER) | payer OTHER ==
[2024-05-22 15:21] LABS: #Basophils Less than 0.03 10x3/uL (0.0-0.2); %Basophils 0.3 % (0.0-1.0); %Eosinophils 5.2 % (0.0-10.0); %Lymphocytes 33.9 % (21.0-51.0); %Monocytes 4.4 % (0.0-10.0); %Neutrophils 56.1 % (42.0-75.0); Hematocrit 41.9 % (36.0-47.0); Hemoglobin 14.4 g/dL (12.0-16.0); Mean Corpuscular HGB CONC 34.4 g/dL (32.0-36.0); Mean Corpuscular Hemoglobin 31.6 pg (27.0-31.0); Mean Corpuscular Volume 91.9 fL (78.0-98.0); Mean Platelet Volume 13.7 fL (7.4-10.4); Platelet Count 241 10x3/uL (130-400); RBC Distribution Width 13.3 % (11.5-14.5); Red Blood Cell (RBC) Count 4.56 mill/uL (4.20-5.40)
[2024-05-22 15:26] LABS: ALT (SGPT) 44 U/L (8-55); AST (SGOT) 46 U/L (5-34); Albumin 3.6 g/dL (3.5-5.0); Alkaline Phosphatase 133 U/L (40-110); Anion Gap 15 mmol/L (10-20); BUN (Urea Nitrogen) 7 mg/dL (9.8-20.1); Bilirubin, Total 0.5 mg/dL (0.2-1.2); Calc. Creatinine Clearance 0 mL/min (70-130); Calcium 9.7 mg/dL (7.8-10.44); Carbon Dioxide 20 mmol/L (22-29); Chloride 107 mmol/L (98-107); Estimated GFR 89; Globulin 3.3 g/dL (2.4-3.5); Glucose 226 mg/dL (70-105); Potassium 4.2 mmol/L (3.5-5.1); Protein, Total 6.9 g/dL (6.0-8.3); Sodium 138 mmol/L (136-145)
[2024-05-22] MEDS ORDERED: Dexamethasone 10 MG/ML VIAL ONE (16:20)
[2024-05-22] MEDS ORDERED: Diazepam 10 MG/2 ML SYRINGE ONE (16:21)
[2024-05-22] MEDS ORDERED: Ketorolac Tromethamine 30 MG (1 mL) VIAL ONE (16:21)
== END 2024-05-22 18:32 | disposition home or self-care (01) ==
LOC: ERS 13:49
DX: G35 Multiple sclerosis (principal); E11.9 Type 2 diabetes mellitus without complications; I10 Essential (primary) hypertension; Z79.4 Long term (current) use of insulin
CPT/HCPCS: 36415; 80053; 85025; 96374; 96375; J1100; J1885; J3360

== ENCOUNTER 2024-08-07 10:23 | Outpatient (CLI) | payer OTHER | END 2024-08-07 10:24 | disposition home or self-care (01) | LOC: BICRAD 10:23 | PROVIDERS: ATTEND Family Medicine | DX: S69.92XA Unspecified injury of left wrist, hand and finger(s), initial encounter (principal) ==

== ENCOUNTER 2024-10-19 10:30 | Outpatient (CLI) | payer OTHER | END 2024-10-19 10:31 | disposition home or self-care (01) | LOC: MRI 10:30 | PROVIDERS: ATTEND Psychiatry & Neurology Neurology | DX: G37.9 Demyelinating disease of central nervous system, unspecified (principal); R90.89 Other abnormal findings on diagnostic imaging of central nervous system | CPT/HCPCS: 70553; 76376 ==

== ENCOUNTER 2025-07-04 18:35 | Emergency (ER) | payer MEDICAID ==
[~2025-07-04 18:35] MED LIST: Iopamidol-370 76% 500 ML MDV (1 ML CHARGE) ONE
[2025-07-04] MEDS ORDERED: Metoclopramide HCl 10 MG (2 mL) VIAL ONE (20:39)
[2025-07-04 21:23] LABS: #Basophils 0.04 10x3/uL (0.0-0.2); #Eosinophils 0.18 10x3/uL (0.0-0.7); #Monocytes 0.60 10x3/uL (0.11-0.59); #Neutrophils 6.77 10x3/uL (1.40-6.50); %Basophils 0.4 % (0.0-1.0); %Eosinophils 1.8 % (0.0-10.0); %Lymphocytes 22.9 % (21.0-51.0); %Monocytes 6.1 % (0.0-10.0); %Neutrophils 68.4 % (42.0-75.0); Hematocrit 47.3 % (36.0-47.0); Hemoglobin 15.5 g/dL (12.0-16.0); Mean Corpuscular Hemoglobin 30.5 pg (27.0-31.0); Mean Corpuscular Volume 93.1 fL (78.0-98.0); Platelet Count 211 10x3/uL (130-400); Red Blood Cell (RBC) Count 5.08 mill/uL (4.20-5.40); White Blood Cell (WBC) Count 9.89 10x3/uL (4.8-10.8)
[2025-07-04 21:36] LABS: BHCG - Serum Negative (NEGATIVE); Pregs Control Background? CLEAR/WHITE (CLR/WHITE); Pregs Control Bar Appear? YES (CONTROL BAR)
[2025-07-04 21:47] LABS: ALT (SGPT) 19 U/L (Less than 34); AST (SGOT) 20 U/L (11-34); Albumin 3.9 g/dL (3.1-4.5); Alkaline Phosphatase 111 U/L (40-110); Anion Gap 16 mmol/L (10-20); BUN (Urea Nitrogen) 13 mg/dL (9.8-20.1); Bilirubin, Total 0.7 mg/dL (0.3-1.2); Calc. Creatinine Clearance 0 mL/min (70-130); Calcium 9.3 mg/dL (7.8-10.44); Carbon Dioxide 27 mmol/L (22-29); Chloride 104 mmol/L (98-107); Globulin 3.2 g/dL (2.4-3.5); Glucose 100 mg/dL (70-105); Lipase 27 U/L (8-78); Magnesium 2.0 mg/dL (1.6-2.6); Potassium 3.8 mmol/L (3.5-5.1); Sodium 143 mmol/L (136-145)
[2025-07-04 22:48] LABS: Bacteria/HPF None Seen HPF (None Seen); CAUTI Indications for Culture Pelvic or flank pain; Glucose, Urine (Dipstick) Normal (Negative); Leukocyte Negative Leu/uL (Negative); Protein, Urine (Dipstick) Negative (Neg-Trace); RBC/HPF 0-3 HPF (0-3); Specific Gravity, Urine 1.004 (1.002-1.036); WBC/HPF 0-3 HPF (0-3)
[2025-07-04 22:50] LABS: Urine Culture Reflex No No
== END 2025-07-04 23:51 | disposition home or self-care (01) ==
LOC: ERS 18:35
DX: R11.2 Nausea with vomiting, unspecified (principal); M25.561 Pain in right knee; M25.551 Pain in right hip; E11.9 Type 2 diabetes mellitus without complications; I10 Essential (primary) hypertension; Z79.4 Long term (current) use of insulin; W01.0XXA Fall on same level from slipping, tripping and stumbling without subsequent striking against object, initial encounter
CPT/HCPCS: 36415; 74177; 80053; 81001; 83605; 83690; 83735; 84703; 85025; 93005; 96361; 96374; J2765; Q9967